=== PATIENT | male | born 1955 | race Two or more races ===

== ENCOUNTER 2020-07-20 17:44 | Outpatient (REF) | payer OTHER, SELFPAY | END 2020-07-20 17:45 | disposition home or self-care (01) | LOC: HO.LAB 17:44 | PROVIDERS: PCP Student in an Organized Health Care Education/Training Program; Visit Provider Internal Medicine | DX: Z20.828 Contact with and (suspected) exposure to other viral communicable diseases (principal) | CPT/HCPCS: 36415; 87635 ==

== ENCOUNTER 2021-01-08 09:28 | Outpatient (REF) | payer OTHER, SELFPAY ==
[2021-01-08 11:41] LABS: Free T4 (Free Thyroxine) 1.11 ng/dL (0.71-1.85); Thyroid Stimulating Hormone 1.64 uIU/mL (0.32-4.0)
== END 2021-01-08 09:29 | disposition home or self-care (01) ==
LOC: HO.LAB 09:28
PROVIDERS: PCP Student in an Organized Health Care Education/Training Program; Visit Provider Internal Medicine Endocrinology, Diabetes & Metabolism
DX: E03.9 Hypothyroidism, unspecified (principal); E05.00 Thyrotoxicosis with diffuse goiter without thyrotoxic crisis or storm; F17.200 Nicotine dependence, unspecified, uncomplicated; Z71.6 Tobacco abuse counseling; Z79.899 Other long term (current) drug therapy
CPT/HCPCS: 36415; 84439; 84443; Q3014

== ENCOUNTER 2021-12-31 11:22 | Outpatient (REF) | payer OTHER, SELFPAY ==
[2021-12-31 12:53] LABS: Free T4 (Free Thyroxine) 1.03 ng/dL (0.71-1.85); Thyroid Stimulating Hormone 5.74 uIU/mL (0.32-4.0)
== END 2021-12-31 11:23 | disposition home or self-care (01) ==
LOC: HO.LAB 11:22
PROVIDERS: PCP Student in an Organized Health Care Education/Training Program; Visit Provider Internal Medicine Endocrinology, Diabetes & Metabolism
DX: E03.9 Hypothyroidism, unspecified (principal); E05.00 Thyrotoxicosis with diffuse goiter without thyrotoxic crisis or storm
CPT/HCPCS: 36415; 84439; 84443

== ENCOUNTER 2022-01-07 09:58 | Outpatient (REF) | payer OTHER, SELFPAY ==
[2022-01-07 12:56] LABS: Free T4 (Free Thyroxine) 1.06 ng/dL (0.71-1.85); Thyroid Stimulating Hormone 7.65 uIU/mL (0.32-4.0)
== END 2022-01-07 09:59 | disposition home or self-care (01) ==
LOC: HO.LAB 09:58
PROVIDERS: PCP Student in an Organized Health Care Education/Training Program; Visit Provider Internal Medicine Endocrinology, Diabetes & Metabolism
DX: E03.9 Hypothyroidism, unspecified (principal)
CPT/HCPCS: 36415; 84439; 84443; 99212

== ENCOUNTER 2022-02-21 08:22 | Outpatient (REF) | payer OTHER, SELFPAY ==
[2022-02-21 09:47] LABS: Free T4 (Free Thyroxine) 1.57 ng/dL (0.71-1.85); Thyroid Stimulating Hormone 2.44 uIU/mL (0.32-4.0)
== END 2022-02-21 08:23 | disposition home or self-care (01) ==
LOC: HO.LAB 08:22
PROVIDERS: PCP Student in an Organized Health Care Education/Training Program; Visit Provider Internal Medicine Endocrinology, Diabetes & Metabolism
DX: E03.9 Hypothyroidism, unspecified (principal)
CPT/HCPCS: 36415; 84439; 84443

== ENCOUNTER 2022-03-10 11:01 | Outpatient (REF) | payer OTHER, SELFPAY ==
--- NOTE | ~2022-03-10 | XR_ITS ---
EXAMINATION: XR CHEST CLINICAL INFORMATION: Shortness of breath COMPARISON: Previous chest x-ray September 2017 TECHNIQUE: 2 views of the chest were obtained. FINDINGS: The cardiac silhouette is upper normal in size. There is increased soft tissue seen in the right mediastinum/azygos region. Hilar and mediastinal contours are otherwise normal. The lungs are otherwise clear. There is no pleural effusion or pneumothorax there are degenerative changes of the spine. XR/XR chest 2V IMPRESSION: Increased soft tissue in the right azygous region. Follow-up chest CT with IV contrast is recommended. Findings will be communicated by the [facility] work flow derrick man.
[2022-03-10 13:01] LABS: MANUAL DIFF FLAG NO
[2022-03-10 13:18] LABS: Basophils Absolute Auto 0.1 X10*3/uL (0.0-0.2); Basophils Percent Auto 0.6 % (0-2); Eosinophils Absolute Auto 1.2 X10*3/uL (0.0-0.4); Eosinophils Percent Auto 12.8 % (0-4); Hematocrit 39.3 % (42.0-52.0); Hemoglobin 12.7 g/dl (14.0-18.0); Imm Gran Abs Auto 0.06 X10*3/uL (0.00-0.03); Imm Gran Pct Auto 0.6 % (0.0-0.4); Lymphocytes Absolute Auto 2.4 X10*3/uL (1.2-4.9); Lymphocytes Percent Auto 25.5 % (20-40); Mean Corpuscular HGB Conc 32.3 g/dl (31.0-36.0); Mean Corpuscular Hemoglobin 27.6 pg (27.0-33.0); Mean Corpuscular Volume 85.4 fL (80.0-98.0); Mean Platelet Volume 9.3 fL (9.4-12.4); Monocytes Absolute Auto 0.9 X10*3/uL (0.1-1.2); Monocytes Percent Auto 10.1 % (2-11); Neutrophils Absolute Auto 4.7 x10*3/uL (2.0-8.3); Neutrophils Percent Auto 50.4 % (45-73); Platelet Count 429 X10*3/uL (160-400); Red Cell Distribution Width 14.4 % (11.0-16.0); White Blood Count 9.2 X10*3/uL (4.8-10.8)
[2022-03-10 13:51] LABS: Alanine Aminotransferase 25 U/L (0-40); Albumin Level 4.2 g/dL (3.5-5.0); Alkaline Phosphatase 79 U/L (39-117); Anion Gap 14 (12-20); Aspartate Amino Transferase 14 U/L (5-37); Bilirubin Total 0.3 mg/dL (0.0-1.0); Blood Urea Nitrogen 14 mg/dL (9-16); C Reactive Protein 1.47 mg/dL (< or = 0.50); Calcium 10.1 mg/dL (8.4-10.2); Carbon Dioxide 28 mmol/L (22-29); Chloride 101 mmol/L (96-108); Estimated Glomerular Filt Rate > 60; Glucose Random 108 mg/dL (60-115); Potassium 5.2 mmol/L (3.3-5.1); Sodium 138 mmol/L (135-145); Total Protein 6.8 g/dL (6.5-8.0)
[2022-03-10 13:55] LABS: Erythrocyte Sedimentation Rate 19 MM/HR (0-15)
[2022-03-16 21:06] LABS: Transglutaminase IgA <1.0 U/mL
[2022-03-19 14:26] LABS: Endomysial IgA Antibody Negative (Negative)
== END 2022-03-10 11:02 | disposition home or self-care (01) ==
LOC: HO.XRAY 11:01
PROVIDERS: PCP Student in an Organized Health Care Education/Training Program; Visit Provider Physician Assistant
DX: K52.9 Noninfective gastroenteritis and colitis, unspecified (principal); R06.02 Shortness of breath; R05.9 Cough, unspecified; R63.4 Abnormal weight loss; F17.210 Nicotine dependence, cigarettes, uncomplicated; R13.10 Dysphagia, unspecified; Z12.11 Encounter for screening for malignant neoplasm of colon; Z79.899 Other long term (current) drug therapy
CPT/HCPCS: 36415; 71046; 80053; 85025; 85652; 86140; 86231; 86364; 99202; 99212

== ENCOUNTER 2022-03-28 09:55 | Emergency (ER) | payer OTHER, SELFPAY ==
--- NOTE | ~2022-03-28 | CT_ITS ---
EXAMINATION: CT CHEST WITHOUT CONTRAST CLINICAL INFORMATION: History of mass, SOB. COMPARISON: Chest 03/11/2022 TECHNIQUE: Multidetector volumetric CT imaging of the chest was done. Axial MIP volume rendering provided. Sagittal and coronal reformatted images were obtained. This CT examination was performed using dose optimization techniques as appropriate, variously including the following: *Automated exposure control *Adjustment of mA and/or kV according to patient size (this includes techniques or standardized protocols for targeted exams where dose is matched to indication/reason for exam; i.e. extremities or head) *Use of iterative reconstruction technique DLP: 220 mGy-cm FINDINGS: ROTOR COIL TAPER: Hypoexpanded lungs. LUNGS: There is a paraseptal emphysema with bullous changes in the right lung apex. There is no pulmonary nodule, mass or groundglass density. MEDIASTINUM: The central trachea and the bronchi widely patent. The thyroid lobes are not visualized. No abnormal size. There is a right paratracheal mass measuring 3.1 x 2.6 x 3.83 cm. No additional lung mass or lymph nodes seen. There is trace coronary artery calcifications present. No pericardial effusion seen. PLEURA: There is no pleural effusion. No pleural mass or thickening. AXILLA: No lymphadenopathy. UPPER ABDOMEN: Visualized liver, spleen, pancreas and bilateral adrenal glands unremarkable. The gallbladder has been surgically removed. OSSEOUS STRUCTURES: No lytic or sclerotic process seen. There is mild ventral spondylosis mid dorsal spine. CT/CT chest wo con IMPRESSION: Soft tissue density right parahilar bronchial region is consistent with abnormal appearing lymph node or mass. There is no contributing pulmonary mass or nodule seen. Recommend outpatient CT PET exam. Trace coronary artery calcifications. Para bronchial region Fleischner guidelines were followed.
[2022-03-28 10:05] VITALS: BP 168/70; PULSE 56; RESP 19; TEMP 36.6; O2SAT 98; BMI 23.3
[2022-03-28 11:18] LABS: MANUAL DIFF FLAG NO
[2022-03-28 11:24] LABS: Basophils Absolute Auto 0.1 X10*3/uL (0.0-0.2); Basophils Percent Auto 0.8 % (0-2); Eosinophils Absolute Auto 1.6 X10*3/uL (0.0-0.4); Hematocrit 39.9 % (42.0-52.0); Hemoglobin 13.4 g/dl (14.0-18.0); Imm Gran Abs Auto 0.05 X10*3/uL (0.00-0.03); Imm Gran Pct Auto 0.5 % (0.0-0.4); Lymphocytes Absolute Auto 1.9 X10*3/uL (1.2-4.9); Lymphocytes Percent Auto 19.5 % (20-40); Mean Corpuscular HGB Conc 33.6 g/dl (31.0-36.0); Mean Corpuscular Hemoglobin 27.9 pg (27.0-33.0); Mean Platelet Volume 9.8 fL (9.4-12.4); Monocytes Percent Auto 9.7 % (2-11); Neutrophils Absolute Auto 5.2 x10*3/uL (2.0-8.3); Neutrophils Percent Auto 53.5 % (45-73); Platelet Count 362 X10*3/uL (160-400); Red Blood Count 4.81 X10*6/uL (4.60-5.80); Red Cell Distribution Width 13.6 % (11.0-16.0); White Blood Count 9.8 X10*3/uL (4.8-10.8)
[2022-03-28 11:37] LABS: Anion Gap 13 (12-20); Blood Urea Nitrogen 15 mg/dL (9-16); Carbon Dioxide 30 mmol/L (22-29); Chloride 97 mmol/L (96-108); Creatinine Clr Calc Pharmacy 76.8; Estimated Glomerular Filt Rate > 60; Glucose Random 117 mg/dL (60-115); Potassium 5.4 mmol/L (3.3-5.1); Sodium 135 mmol/L (135-145)
--- NOTE | 2022-03-28 11:49 | ED.GENADULT ---
HPI - General Adult General Chief complaint: General Medical Stated complaint: weakness , difficulty breathing Time Seen by Provider: 03/28/22 11:49 Source: patient and family (son) Mode of arrival: ambulatory Limitations: no limitations History of Present Illness HPI narrative: Patient is a 66 year old male presenting to the emergency department today with 30lb weight loss over 2 weeks and decreased appetite. Patient states that for the last 2 weeks he has been losing more weight and has felt generally weak. Patient denies any dizziness, lightheadedness, abdominal pain, nausea, vomiting, fever, chills, blurry vision, double vision, loss of vision, chest pain, difficulty breathing, shortness of breath, back pain, night sweats, pain with urination, increased urinary frequency, increased urinary urgency, blood in his urine or stool, syncope or a near syncopal episode, recent trauma or falls, bowel incontinence, bladder incontinence, bowel retention, bladder retention, or any other complaints at this time. Onset (ago): week(s) (2) Severity: mild Severity scale (1-10): 3 Relieving factors: none Exacerbating factors: none Associated symptoms: loss of appetite and weakness Treatments prior to arrival: none Related Data Home Medications Medication Instructions Recorded Confirmed buprenorphine 8 mg-naloxone 2 mg 20 mg sublingual DAILY 01/08/21 03/10/22 sublingual film divalproex 500 mg tablet,extended 500 mg PO DAILY 01/08/21 03/10/22 release 24 hr folic acid 1 mg tablet 1 mg PO DAILY 01/08/21 03/10/22 gemfibrozil 600 mg tablet 600 mg PO BID 01/08/21 03/10/22 hydrochlorothiazide 12.5 mg capsule 12.5 mg PO DAILY 01/08/21 03/10/22 hydroxyzine HCl 25 mg tablet 25 mg PO QID 01/08/21 03/10/22 olanzapine 15 mg tablet 15 mg PO BEDTIME 01/08/21 03/10/22 primidone 250 mg tablet 250 mg PO BID 01/08/21 03/10/22 propranolol 160 mg capsule,24 160 mg PO DAILY 01/08/21 03/10/22 hr,extended release simvastatin 20 mg tablet 20 mg PO BEDTIME 01/08/21 03/10/22 Previous Rx's Medication Instructions Recorded levothyroxine 50 mcg tablet 50 mcg PO DAILY #30 tabs 01/07/22 (Levoxyl) levothyroxine 200 mcg tablet 200 mcg PO DAILY 90 days #90 tabs 02/14/22 bisacodyl 5 mg tablet,delayed 10 mg PO ONCE colonoscopy prep 1 03/10/22 release (Dulcolax (bisacodyl)) day #2 tabs polyethylene glycol 3350 17 238 g PO ONCE 1 day #238 grams 03/10/22 gram/dose oral powder (Miralax) Allergies Allergy/AdvReac Type Severity Reaction Status Date / Time No Known Allergies Allergy Verified 03/10/22 11:10 [No Known Allergies*] Review of Systems Constitutional: Constitutional: Reports no additional constitutional complaints, Denies chills, Denies fever(s), Reports lethargy, Denies night sweats, Reports weakness and Reports weight loss Eyes: Eyes: Reports no additional eye complaints, Denies blurry vision, Denies change in vision, Denies diplopia, Denies eye discharge, Denies loss of vision and Denies eye pain ENT: Denies dizziness Comments: difficulty swallowing Cardiovascular: Cardiovascular: Reports no additional cardiovascular complaints, Denies chest pain, Denies lightheadedness, Denies Loss of Consciousness and Denies dyspnea Respiratory: Respiratory: Reports no additional respiratory complaints and Denies dyspnea Gastrointestinal: Gastrointestinal: Reports no additional gastrointestinal complaints, Denies abdominal pain, Denies melena, Denies hematochezia, Denies change in bowel habits and Denies change in stool character Genitourinary: Genitourinary: Reports no additional male genitourinary complaints, Denies hematuria, Denies oliguria, Denies difficulty urinating, Denies dysuria, Denies urinary frequency, Denies urinary hesitancy, Denies urinary incontinence and Denies urinary urgency Musculoskeletal: Musculoskeletal: Reports no additional musculoskeletal complaints, Denies numbness and Denies tingling Comments: right shoulder pain Neurologic: Denies dizziness, Denies loss of vision, Denies numbness, Denies tingling and Reports weakness Psychiatric: Psychiatric: Reports no additional psychiatric complaints Endocrine: Endocrine: Reports no additional endocrine complaints Hematologic/Lymphatic: Hematologic/Lymphatic: Reports no additional hematologic/lymphatic complaints Allergic/Immunologic: Allergic/Immunologic: Reports no additional allergic/immunologic complaints PMFSH Past Medical History Attestation statement: The following information was validated with the patient. Source: old records reviewed Medical History Graves' orbitopathy Hypothyroidism Smoker Surgical History Hx of cataract surgery Family History Family History Father Diabetes mellitus Mother No problems noted. Social History Social History Alcohol intake: current Alcohol intake frequency: does not drink Patient Tobacco Use Status: Current everyday Tobacco user Cigarettes Per Day: 10 Advance Directives: No Advance Directives Information Provided: No Physical Exam ED Vital Signs: Vital Signs - 24 hr 03/28/22 10:05 03/28/22 12:41 03/28/22 16:02 Temperature 98 F 98.2 F Pulse Rate 56 58 55 Respiratory Rate 19 16 17 Blood Pressure 168/70 H 177/72 H 169/60 H Pulse Oximetry 98 98 96 Oxygen Delivery Method Room Air Room Air Room Air BMI result Body Mass Index 23.3 Const General: cooperative, no acute distress, alert and awake Nutritional Appearance: cachectic Orientation/consciousness: patient oriented x3 Limitations: no limitations HENMT Head: Yes normal to inspection and Yes atraumatic Ears: hearing grossly normal bilaterally and external ears normal General nose exam: Normal external nose present, no nasal discharge noted and no epistaxis Face and sinus: Yes normal facial exam, No abrasion and No laceration Mouth: Normal oral and palatal mucosa present, no drooling and no muffled voice Eyes General: appearance normal, both eyes and all related structures Periorbital: periorbital findings normal Eyelids: Yes eyelids normal Conjunctivae: conjunctivae normal Pupils: Equal, round and reactive pupils present EOM: EOMs intact bilaterally Neck Neck: Yes normal visual inspection, Yes full ROM and Yes no lymphadenopathy Chest Chest palpation & inspection: normal inspection of the chest Resp Effort & Inspection: normal respiratory effort and able to speak in complete sentences Auscultation: clear to auscultation bilaterally Cardio Rate: regular rate Rhythm: regular rhythm GI Inspection: Yes normal to inspection Neuro General: patient oriented x3 and moves all extremities Cranial nerves: Yes Equal, round and reactive pupils present Cognition (Neuro): normal cognition Motor exam (neuro): 5/5 motor strength present throughout Sensory Exam: Normal double simultaneous stimulation for sensation Coordination: [id number] test normal Extrem General: Yes normal to inspection, Yes full ROM and Yes capillary refill normal Psych Appearance: grossly normal Mental Status: mental status grossly normal Affect: normal affect Attitude: cooperative Thought process: Normal thought process present Thought content: Normal thought content present Insight: Good insight present (Psych) Medical Decision Making MDM Narrative Medical decision making narrative: Patient is a 66 year old male presenting to the emergency department today with weakness. Patient's physical exam showed cachectia but was otherwise unremarkable. Patient's blood work showed an elevated potassium which seams to be the patient's basline. Patient's chest CT showed a paratracheal mass on the right side, the radiologist remarks it is likely a lymphnode. I explained my physical exam findings as well as all test results to the patient and the patient's son. I answered all questions asked by the patient and the patient's. Patient received IV Morphine, Zofran, and Ativan which he stated helped his shoulder pain significantly. I stressed the importance of the patient taking his medication as prescribed. I stressed the importance of the patient following up with his primary care provider and with an oncologist. I stressed the importance of the patient returning to the emergency department immediately if his symptoms were to worsen or if he were to develop any dizziness, shortness of breath, difficulty breathing, chest pain, blurry vision, loss of vision, nausea, vomiting, abdominal pain, fever, chills, back pain, or any other complaints. Patient and the patient's son verbalized agreement and understanding with this treatment plan and discharge. Differential Diagnosis Differential Diagnosis: lymphoma Medical Records Medical records reviewed: Yes I reviewed the patient's medical records. Lab Data Lab results reviewed: Yes I reviewed the patient's lab results. Result diagrams: 03/28/22 11:14 03/28/22 11:14 Labs: Lab Results 03/28/22 03/28/22 Range/Units 11:14 11:14 WBC 9.8 (4.8-10.8) X10*3/uL RBC 4.81 (4.60-5.80) X10*6/uL Hgb 13.4 L (14.0-18.0) g/dl Hct 39.9 L (42.0-52.0) % MCV 83.0 (80.0-98.0) fL MCH 27.9 (27.0-33.0) pg MCHC 33.6 (31.0-36.0) g/dl RDW 13.6 (11.0-16.0) % Plt Count 362 (160-400) X10*3/uL MPV 9.8 (9.4-12.4) fL Immature Gran % (Auto) 0.5 H (0.0-0.4) % Neut % (Auto) 53.5 (45-73) % Lymph % (Auto) 19.5 L (20-40) % Wagoner % (Auto) 9.7 (2-11) % Eos % (Auto) 16.0 H (0-4) % Baso % (Auto) 0.8 (0-2) % Lymph # (Auto) 1.9 (1.2-4.9) X10*3/uL Wagoner # (Auto) 1.0 (0.1-1.2) X10*3/uL Eos # (Auto) 1.6 H (0.0-0.4) X10*3/uL Baso # (Auto) 0.1 (0.0-0.2) X10*3/uL Abs Immat Gran (auto) 0.05 H (0.00-0.03) X10*3/uL Absolute Neuts (auto) 5.2 (2.0-8.3) x10*3/uL Absolute Nucleated RBC 0.000 (0.0-0.012) X10*3/uL Nucleated RBC % (auto) 0.0 (0.0-0.2) /100WBC Sodium 135 (135-145) mmol/L Potassium 5.4 H (3.3-5.1) mmol/L Chloride 97 (96-108) mmol/L Carbon Dioxide 30 H (22-29) mmol/L Anion Gap 13 (12-20) BUN 15 (9-16) mg/dL Creatinine 0.75 (0.5-1.4) mg/dL Estim Creat Clear Calc 76.8 Estimated GFR > 60 Random Glucose 117 H (60-115) mg/dL Calcium 10.0 (8.4-10.2) mg/dL Imaging Data CT scan - chest: Attestation: I personally reviewed and interpreted this imaging study as follows: My impression: Mass on right side of trachea. Radiologist's impression: EXAMINATION: CT CHEST WITHOUT CONTRAST CLINICAL INFORMATION: History of mass, SOB.? COMPARISON: Chest 03/11/2022 TECHNIQUE: Multidetector volumetric CT imaging of the chest was done. Axial MIP volume rendering provided. Sagittal and coronal reformatted images were obtained.? This CT examination was performed using dose optimization techniques as appropriate, variously including the following: *Automated exposure control *Adjustment of mA and/or kV according to patient size (this includes techniques or standardized protocols for targeted exams where dose is matched to indication/reason for exam; i.e. extremities or head) *Use of iterative reconstruction technique DLP: 220 mGy-cm FINDINGS: BAIL BONDING AGENT: Hypoexpanded lungs. LUNGS: There is a paraseptal emphysema with bullous changes in the right lung apex. There is no pulmonary nodule, mass or groundglass density.? MEDIASTINUM: The central trachea and the bronchi widely patent. The thyroid lobes are not visualized. No abnormal size. There is a right paratracheal mass measuring 3.1 x 2.6 x 3.83 cm. No additional lung mass or lymph nodes seen. There is trace coronary artery calcifications present. No pericardial effusion seen.? PLEURA: There is no pleural effusion. No pleural mass or thickening.? AXILLA: No lymphadenopathy.? UPPER ABDOMEN: Visualized liver, spleen, pancreas and bilateral adrenal glands unremarkable. The gallbladder has been surgically removed.? OSSEOUS STRUCTURES: No lytic or sclerotic process seen. There is mild ventral spondylosis mid dorsal spine.? CT/CT chest wo con IMPRESSION: Soft tissue density right parahilar bronchial region is consistent with abnormal appearing lymph node or mass. ? There is no contributing pulmonary mass or nodule seen. ? Recommend outpatient CT PET exam. ? Trace coronary artery calcifications. ? Para bronchial region Fleischner guidelines were followed. Dictated By: Chuck Jiang MD Signed By: Electronically signed by Chuck Jiang MD 03/28/22 0646 Discharge Plan Discharge Clinical Impression: Mass in chest Patient Disposition: Home, Self-Care Instructions: Weakness (ED) Additional Instructions: Follow up with your primary care provider and an oncologist. Return to the emergency department immediately if your symptoms worsen or if you develop any dizziness, shortness of breath, difficulty breathing, chest pain, blurry vision, loss of vision, nausea, vomiting, abdominal pain, fever, chills, back pain, or any other complaints. Prescriptions: No Action levothyroxine [Levoxyl] 50 mcg tablet 50 mcg PO DAILY Qty: 30 5RF Rx Instructions: Please take 200 mcg and 50 mcg q.d. to make total of 250 mcg levothyroxine 200 mcg tablet 200 mcg PO DAILY 90 Days Qty: 90 1RF Rx Instructions: PLEASE TAKE 200MCG WITH 50MCG FOR TOTAL DOSE 250MCG. olanzapine 15 mg tablet 15 mg PO BEDTIME folic acid 1 mg tablet 1 mg PO DAILY hydrochlorothiazide 12.5 mg capsule 12.5 mg PO DAILY divalproex 500 mg tablet extended release 24 hr 500 mg PO DAILY simvastatin 20 mg tablet 20 mg PO BEDTIME gemfibrozil 600 mg tablet 600 mg PO BID primidone 250 mg tablet 250 mg PO BID propranolol 160 mg capsule,extended release 24 hr 160 mg PO DAILY hydroxyzine HCl 25 mg tablet 25 mg PO QID buprenorphine-naloxone 8-2 mg film 20 mg sublingual DAILY bisacodyl [Dulcolax (bisacodyl)] 5 mg tablet,delayed release (DR/EC) 10 mg PO ONCE 1 Days Qty: 2 0RF Rx Instructions: Take 2 tablets by mouth at 12:00pm the day before your procedure. polyethylene glycol 3350 [Miralax] 17 gram/dose powder 238 g PO ONCE 1 Days Qty: 238 0RF Rx Instructions: Take as directed by mouth the day before your procedure. Referrals: Bre Lewis MD [Physician] - (Call to set up an appointment with an oncologist. ) Anastasiya Gimenez MD [Primary Care Provider] - Print Language: [place]
[2022-03-28 12:41] VITALS: BP 177/72; PULSE 58; RESP 16; TEMP 36.8; O2SAT 98
[2022-03-28] MEDS: ondansetron HCL 4 MG/2 ML VIAL IVPUSH (13:41)
[2022-03-28] MEDS: Morphine Sulfate 4 MG/ML CARTRIDGE IVPUSH (13:41)
[2022-03-28] MEDS: LORazepam 2 MG/ML VIAL IVPUSH (15:09)
[2022-03-28 16:02] VITALS: BP 169/60; PULSE 55; RESP 17; O2SAT 96
[2022-03-28 16:59] LABS: Lactate Dehydrogenase 180 U/L (118-273)
== END 2022-03-28 17:12 | disposition home or self-care (01) ==
PROVIDERS: Internal Medicine; Emergency Provider Emergency Medicine; PCP Student in an Organized Health Care Education/Training Program
DX: R93.89 Abnormal findings on diagnostic imaging of other specified body structures (principal); R63.4 Abnormal weight loss; Z68.23 Body mass index [BMI] 23.0-23.9, adult; F17.210 Nicotine dependence, cigarettes, uncomplicated
CPT/HCPCS: 36415; 71250; 80048; 82378; 83615; 85025; 96374; 96375; 99283; 99284; J2060; J2270; J2405

== ENCOUNTER → 2022-04-04 15:04 | Outpatient (BNV) | payer OTHER, SELFPAY | PROVIDERS: PCP Student in an Organized Health Care Education/Training Program; Visit Provider Internal Medicine | DX: R91.8 Other nonspecific abnormal finding of lung field (principal); R13.10 Dysphagia, unspecified | CPT/HCPCS: 99204; 99212; 99213; 99214; 99215; G2211 ==

== ENCOUNTER → 2022-04-05 14:39 | Outpatient (BNVA) | payer OTHER, SELFPAY | PROVIDERS: PCP Student in an Organized Health Care Education/Training Program; Visit Provider Hospitalist | DX: J98.59 Other diseases of mediastinum, not elsewhere classified (principal); R05.9 Cough, unspecified; R13.10 Dysphagia, unspecified; R59.1 Generalized enlarged lymph nodes; F17.210 Nicotine dependence, cigarettes, uncomplicated | CPT/HCPCS: 99202 ==

== ENCOUNTER 2022-04-08 09:38 | Outpatient (REF) | payer OTHER, SELFPAY ==
--- NOTE | ~2022-04-08 | MR_ITS ---
EXAMINATION: MR BRAIN WITHOUT AND WITH CONTRAST CLINICAL INFORMATION: 66-year-old with headaches. Right parahilar mass noted on recent CT chest. COMPARISON: None TECHNIQUE: Multiplanar, multisequence MRI of the brain was obtained before and after the intravenous administration of 6 mL Gadavist. FINDINGS: Brain Volume: Mild generalized diffuse brain parenchymal volume loss consistent with the patient's age within the limitations of a qualitative assessment. Structural: No malformations. Brain and Meninges: DWI sequence demonstrates no restricted diffusion to suggest acute or subacute cerebral ischemia. Multiple small T2 hyperintense nonenhancing white matter lesions in the subcortical white matter of both cerebral hemispheres with faint, more confluent T2 hyperintensity in the deep parietal white matter bilaterally, which are nonspecific findings but likely reflect foci of chronic ischemic microangiopathy. Gradient refocused imaging demonstrates no evidence for hemorrhage, hemosiderin staining or abnormal mineral deposition. Note is made of a 4 mm enhancing nodule within the cerebellar vermis slightly to the right of midline along its superior aspect with focal FLAIR signal hyperintensity consistent with a focal metastasis. A 2nd smaller lesion measuring 3 mm may be present just inferior to this on the right side of the vermis seen on image 10 of series 10. There is a punctate enhancing focus in the right cerebellar hemisphere on image 5 of series 10 and image 9 of series 11 suggesting a tiny metastatic deposit. No supratentorial lesions are seen. The remainder of the brain is normal in signal intensity. No extra-axial fluid collections, significant space-occupying process or mass effect. Ventricles and Subarachnoid Spaces: The ventricular system and subarachnoid spaces are within normal limits without hydrocephalus. Orbital Structures: Bilateral lens extractions are noted. Otherwise, the visualized orbital structures are grossly unremarkable within the limitations of the study. Vascular: Signal voids are noted in the visualized major intracranial vessels. Osseous Structures, Sinuses/Mastoids, Extracranial Soft Tissues: The left maxillary sinus is filled with low T1/high T2 signal intensity with peripheral enhancement and restricted diffusion suggesting acute left maxillary sinusitis with probable left [facility] occlusion. There is minor mucosal thickening in the ethmoid complex. Osseous marrow signal intensity appears grossly within normal limits. The visualized extracranial soft tissue structures are unremarkable. MR/MR head/brain wo/w con IMPRESSION: 1. 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 2. Chronic ischemic microangiopathy in the white matter of both cerebral hemispheres. 3. Acute left maxillary sinusitis. The [facility] staff will call to confirm receipt of this report with acknowledgement of the findings and any recommendations.
== END 2022-04-08 09:39 | disposition home or self-care (01) ==
LOC: HO.MRI 09:38
PROVIDERS: Visit Provider Internal Medicine
DX: R91.8 Other nonspecific abnormal finding of lung field (principal)
CPT/HCPCS: 70553; A9585

== ENCOUNTER 2022-04-11 07:43 | Outpatient (REF) | payer OTHER, SELFPAY ==
--- NOTE | ~2022-04-11 | CT_ITS ---
EXAMINATION: CT CHEST WITH CONTRAST CLINICAL INFORMATION: Mediastinal mass. Dysphagia. COMPARISON: Previous chest x-ray February [address] 2021 TECHNIQUE: Multidetector volumetric CT imaging of the chest was obtained after the administration of 65 mL of Omnipaque 350 intravenous contrast without immediate adverse reactions. Axial MIP volume rendering provided. Sagittal and coronal reformatted images were obtained. This CT examination was performed using dose optimization techniques as appropriate, variously including the following: *Automated exposure control *Adjustment of mA and/or kV according to patient size (this includes techniques or standardized protocols for targeted exams where dose is matched to indication/reason for exam; i.e. extremities or head) *Use of iterative reconstruction technique DLP: 123 mGy-cm FINDINGS: LUNGS: There is evidence of paraseptal emphysema. No lung nodule or mass is appreciated. There is question of endobronchial lesion in the right mainstem bronchus abutting the right paratracheal enlarged lymph node. MEDIASTINUM: There are enlarged mediastinal lymph nodes. Largest lymph node is a right paratracheal lymph node measuring 2.7 cm in short axis and subcarinal lymph node measuring 1.4 cm in short axis. This causes some mass effect on the right mainstem bronchus. There is question of filling defect in the adjacent right mainstem bronchus for example axial image 19 series 3 and coronal reconstructed image 43. The heart does not appear enlarged. There is coronary artery calcification. There is no pericardial effusion. The thoracic aorta is normal in caliber. There is a replaced right subclavian artery. There is wall thickening of the thoracic esophagus. PLEURA: There is no pleural effusion. No pleural mass or thickening. AXILLA: No lymphadenopathy. UPPER ABDOMEN: There is a 1 cm right adrenal nodule. There is mild diverticulosis of the colon. OSSEOUS STRUCTURES: Degenerative changes of the spine. CT/CT chest w con IMPRESSION: Enlarged right paratracheal and subcarinal mediastinal lymph nodes. Question nodule or mass in the right mainstem bronchus adjacent to the enlarged right paratracheal lymph node. 1 cm right adrenal nodule. Diffuse wall thickening of the esophagus. Paraseptal emphysema. No other pulmonary finding/nodule or mass. Coronary artery calcification. Replaced right subclavian artery. PET/CT scan or thoracic evaluation for bronchoscopy/mediastinoscopy should be considered. Fleischner guidelines were followed.
[2022-04-11] MEDS: iohexoL 350 MG/ML 100 ML INFUS..BTL IV (08:36)
== END 2022-04-11 07:44 | disposition home or self-care (01) ==
LOC: HO.CT 07:43
PROVIDERS: Visit Provider Internal Medicine
DX: J98.59 Other diseases of mediastinum, not elsewhere classified (principal)
CPT/HCPCS: 71260; Q9967

== ENCOUNTER 2022-04-14 07:15 | Day surgery (SDC) | payer OTHER, SELFPAY ==
--- NOTE | 2022-04-13 10:07 | HO.ANESPROP2 ---
Documented by User: Pretty Martinez NP 04/13/22 10:10 HPI - Anesthesia Eval Consult details Narrative: 66yo M for Endoscopic Bronchial Ultrasound [facility] Active Problems Active Problems: All Active Problems (Updated 04/05/22 @ 23:33 by Gaetano Valverde MD) Lymphadenopathy (Acute) Mediastinal mass (Acute) Smoker (Acute) Cough (Acute) Weight loss (Acute) SOB (shortness of breath) (Acute) Encounter for screening colonoscopy (Acute) Chronic diarrhea (Acute) Dysphagia (Acute) Graves' orbitopathy (Acute) Hypothyroidism (Acute) Past Medical History Medical History Graves' orbitopathy Hypothyroidism Smoker Family History Family History (Updated 04/04/22 @ 15:20 by Sydnee Moya) Father Diabetes mellitus Mother Alzheimer disease Surgical History Surgical History Hx of cataract surgery Social History Social History (Updated 04/04/22 @ 15:23 by Sydnee Moya) Household Members: None Housing: Apartment Are you a primary resident care aide to a significant other at home: No Do you presently have visiting nurse or other home services: No Alcohol intake: current Alcohol intake frequency: does not drink Patient Tobacco Use Status: Current everyday Tobacco user Tobacco use type: Cigarette Cigarettes Per Day: 3 Use of substances other than those prescribed or required for medical reasons: Yes Substance Use Type: Club/Welding Manager Drugs and Marijuana Substance Use Frequency: Daily Are you DNR?: No Advance Directives: No Advance Directives Information Provided: Yes service: No Current occupational status: disabled Meds Allergies Allergy/AdvReac Type Severity Reaction Status Date / Time No Known Allergies Allergy Verified 04/05/22 14:46 [No Known Allergies*] Home Medications Medication Instructions Recorded Confirmed Last Taken Type buprenorphine 8 mg-naloxone 2 mg 20 mg sublingual DAILY 01/08/21 04/04/22 Unknown History sublingual film divalproex 500 mg tablet,extended 500 mg PO DAILY 01/08/21 04/04/22 Unknown History release 24 hr gemfibrozil 600 mg tablet 600 mg PO BID 01/08/21 04/04/22 Unknown History hydrochlorothiazide 12.5 mg capsule 12.5 mg PO DAILY 01/08/21 04/04/22 Unknown History hydroxyzine HCl 25 mg tablet 25 mg PO QID 01/08/21 04/04/22 Unknown History primidone 250 mg tablet 250 mg PO BID 01/08/21 04/04/22 04/14/22 05:45 History propranolol 160 mg capsule,24 160 mg PO DAILY 01/08/21 04/04/22 Unknown History hr,extended release simvastatin 20 mg tablet 20 mg PO BEDTIME 01/08/21 04/04/22 Unknown History olanzapine 15 mg tablet 1 tab PO BEDTIME 04/04/22 04/04/22 Unknown History Exam Exam Date and Time: April 13, 2022 1007 Pertinent Lab Results Pertinent Lab Results: Laboratory Tests 03/28/22 03/28/22 11:14 11:14 WBC 9.8 Hgb 13.4 L Hct 39.9 L Plt Count 362 Sodium 135 Potassium 5.4 H Chloride 97 Carbon Dioxide 30 H BUN 15 Creatinine 0.75 Narrative Narrative: CT chest w con 03/2022 IMPRESSION: Enlarged right paratracheal and subcarinal mediastinal lymph nodes. Question nodule or mass in the right mainstem bronchus adjacent to the enlarged right paratracheal lymph node. 1 cm right adrenal nodule. Diffuse wall thickening of the esophagus. Paraseptal emphysema. No other pulmonary finding/nodule or mass. Coronary artery calcification. Replaced right subclavian artery. ? PET/CT scan or thoracic evaluation for bronchoscopy/mediastinoscopy should be considered. Assessment and Plan Assessment Anesthesia Assessment: Chart Reviewed Documented by User: Hari Saunders MD 04/14/22 09:55 [facility] Past Medical History Medical History Graves' orbitopathy Hypothyroidism Smoker Family History Family History (Updated 04/04/22 @ 15:20 by Sydnee Moya) Father Diabetes mellitus Mother Alzheimer disease Family history of problems with anesthesia: No Surgical History Surgical History Hx of cataract surgery History of Problems with Anesthesia: No Social History Social History (Updated 04/04/22 @ 15:23 by Sydnee Moya) Household Members: None Housing: Apartment Are you a primary resident care aide to a significant other at home: No Do you presently have visiting nurse or other home services: No Alcohol intake: current Alcohol intake frequency: does not drink Patient Tobacco Use Status: Current everyday Tobacco user Tobacco use type: Cigarette Cigarettes Per Day: 3 Use of substances other than those prescribed or required for medical reasons: Yes Substance Use Type: Club/Welding Manager Drugs and Marijuana Substance Use Frequency: Daily Are you DNR?: No Advance Directives: No Advance Directives Information Provided: Yes service: No Current occupational status: disabled Meds Allergies Allergy/AdvReac Type Severity Reaction Status Date / Time No Known Allergies Allergy Verified 04/05/22 14:46 [No Known Allergies*] Home Medications Medication Instructions Recorded Confirmed Last Taken Type buprenorphine 8 mg-naloxone 2 mg 20 mg sublingual DAILY 01/08/21 04/04/22 Unknown History sublingual film divalproex 500 mg tablet,extended 500 mg PO DAILY 01/08/21 04/04/22 Unknown History release 24 hr gemfibrozil 600 mg tablet 600 mg PO BID 01/08/21 04/04/22 Unknown History hydrochlorothiazide 12.5 mg capsule 12.5 mg PO DAILY 01/08/21 04/04/22 Unknown History hydroxyzine HCl 25 mg tablet 25 mg PO QID 01/08/21 04/04/22 Unknown History primidone 250 mg tablet 250 mg PO BID 01/08/21 04/04/22 04/14/22 05:45 History propranolol 160 mg capsule,24 160 mg PO DAILY 01/08/21 04/04/22 Unknown History hr,extended release simvastatin 20 mg tablet 20 mg PO BEDTIME 01/08/21 04/04/22 Unknown History olanzapine 15 mg tablet 1 tab PO BEDTIME 04/04/22 04/04/22 Unknown History Exam Airway Mallampati Class: II TM Dist: >3cm Neck ROM: Full Denture: Upper and Lower Heart: rrr Lungs: clear Assessment and Plan Final Anesthetic Review Family History of Problems with Anesthesia: No History of Problems with Anesthesia: No NPO: Yes ASA Class: III Final Preanesthetic Review: No Changes in Pt Med Stat, Meds/Allgs Chart Reviewed, Consent Obtained/Reviewed and Anes Risks/Benef Reviewed Anesthetic Plan Anesthetic Plan: GA Disposition: Standard PACU
[2022-04-14] VITALS (8 sets, daily range): BP systolic 140–173; BP diastolic 49–75; PULSE 57–71; RESP 16–20; TEMP 35.9–36.4; O2SAT 96–100; BMI 24.1; BMI 23.8
[2022-04-14] MEDS: Lactated Ringers 1,000 ML 100 ML IVCONT (08:00)
--- NOTE | 2022-04-14 08:12 | MHC.SHP ---
Pre-Procedural Eval Section A Date of Service: 04/14/22 The patient is an INPATIENT: No Changes since office visit: No Cold of Flu in the past 2 weeks, No New Medical Problems, No Changes in Medication and No Patient answered all questions Section B Chief Complaint: Generalized enlarged lymph nodes Allergies: Allergies Allergy/AdvReac Type Severity Reaction Status Date / Time No Known Allergies Allergy Verified 04/05/22 14:46 [No Known Allergies*] Plan I have reviewed the history and physical and performed a pertinent physical examination on my patient. No changes have occurred unless specified.
[2022-04-14] MEDS: Acetaminophen 325 MG TABLET 650 MG PO (13:55)
--- NOTE | 2022-04-15 23:45 | OP_ITS ---
SURGEON: Gaetano Valverde MD PREOPERATIVE DIAGNOSIS: Lung mass. POSTOPERATIVE DIAGNOSIS: PROCEDURE PERFORMED: ESTIMATED BLOOD LOSS: COMPLICATIONS: ANESTHESIA: General anesthesia. ASSISTANTS: SPECIMENS: POSTOPERATIVE DIAGNOSES: Lung mass, lymphadenopathy, and lung cancer. DESCRIPTION OF PROCEDURE: After the patient was adequately sedated and intubated, the flexible digital bronchoscope with endobronchial ultrasound bronchoscopy (EBUS) was introduced via the ET tube to the level of the trachea. Initially using ultrasound, the lymph node stations were evaluated. Appeared to have a significantly large 4R lymph node, that was mass-like in addition to a subcarinal lymph node measuring 2 cm to 3 cm. No significant lymph nodes noted on station 4 L. Using the ultrasound guidance, transtracheal fine-needle aspirations were collected from station 4R and given to the onsite baccarat dealer. They did see abnormal cells noted. After multiple passes there, then we navigated to station 7, where we did two additional passes and the specimens were given to the onsite baccarat dealer. The EBUS was then removed and we replaced with the regular bronchoscopy. The regular bronchoscope was inserted over the ET tube to the level of the trachea. The bronchoscope was navigated to the entire tracheobronchial tree, that was examined to the subsegmental level. The patient did have what appeared to be a vascular looking mass just proximal to the opening of the right upper lobe. However, was not involving the right upper lobe. Appeared to be friable and appeared to be spreading via the mucosa. This was concerning for malignancy. Using forceps, endobronchial biopsies were collected of the right mainstem bronchus mass-like density. The specimen was placed in formalin. Bronchial washings were also collected. The patient tolerated the biopsies well. He did have some bleeding therefore 1 ampule of epinephrine was used with good hemostasis. No evidence of any active bleeding at the end the procedure. The bronchoscope was then removed. The total endoscopic time was approximately 40 minutes. The patient tolerated the procedure well. INTERPRETATION: 1. Successful EBUS-TBNA of station 4R and also 7. 2. Endobronchial biopsies of the right mainstem bronchus for pathology. 3. Bronchial washings. ENVIRONMENTAL ENGINEERING AIDE: None. MD KVNG Li/RIKA / [id number]
--- NOTE | 2022-04-16 23:31 | P.BOP_ITS ---
Brief Operative Note Date of Service: 05/12/22 Pre-op diagnosis: lung mass Post-op diagnosis: other (lung cancer) Procedure: EBUS with TBNA station 7 and 4R, bronchoscopy with biopsys and washings Surgeon: Gaetano Valverde MD Anesthesia: GETA Was an Customer Relations Specialist used for this Procedure?: No Estimated blood loss (mL): 3 Pathology: other (REJI bronchus biopsies) Condition: stable Disposition: same day
== END 2022-04-14 15:15 | disposition home or self-care (01) ==
PROVIDERS: PCP Student in an Organized Health Care Education/Training Program; Visit Provider Hospitalist
PROC: (CPT 31652; principal; 2022-04-14 11:30)
DX: C34.01 Malignant neoplasm of right main bronchus (principal); C77.9 Secondary and unspecified malignant neoplasm of lymph node, unspecified; R59.1 Generalized enlarged lymph nodes; F17.210 Nicotine dependence, cigarettes, uncomplicated; E03.9 Hypothyroidism, unspecified; E05.00 Thyrotoxicosis with diffuse goiter without thyrotoxic crisis or storm; F12.90 Cannabis use, unspecified, uncomplicated
CPT/HCPCS: 31652; 31625; 81479; 87071; 87205; 88112; 88172; 88173; 88177; 88305; 88341; 88342; 88360; 88374; 88377; J0171; J0330; J1100; J2250; J2405; J3010

== ENCOUNTER 2022-04-22 09:33 | Outpatient (REF) | payer OTHER, SELFPAY ==
--- NOTE | ~2022-04-22 | FL_ITS ---
EXAMINATION: FL BARIUM SWALLOW CLINICAL INFORMATION: Dysphagia COMPARISON: Previous chest CT most recent 04/11/2022 TECHNIQUE: Barium swallow examination is performed using fluoroscopic evaluation in addition to multiple fluoroscopic spot views. The patient is imaged both upright and prone and using both thick and thin sulfate along with effervescent granules. Barium tablet was also administered Fluoroscopy time: 1.5 minutes DAP: 7 Gycm2 Images: 48 FINDINGS: There is transient minimal laryngeal penetration with liquid barium. No beba aspiration is seen. There is abnormal esophageal motility with tertiary contractions. There is extrinsic compression on the proximal thoracic esophagus likely from replaced right subclavian artery when compared with chest CTA. There is stasis of the barium tablet in the distal thoracic esophagus. No hernia or reflux is seen. FL/FL barium swallow IMPRESSION: Abnormal esophageal motility with tertiary contractions. Extrinsic compression on the proximal thoracic esophagus from replaced right subclavian artery. Minimal laryngeal penetration. No beba aspiration.
== END 2022-04-22 09:34 | disposition home or self-care (01) ==
LOC: HO.XRAY 09:33
PROVIDERS: Visit Provider Physician Assistant
DX: R13.10 Dysphagia, unspecified (principal); R05.9 Cough, unspecified
CPT/HCPCS: 74220

== ENCOUNTER → 2022-04-28 09:45 | Outpatient (BNVA) | payer OTHER, SELFPAY | PROVIDERS: PCP Student in an Organized Health Care Education/Training Program; Visit Provider Physician Assistant | DX: J98.59 Other diseases of mediastinum, not elsewhere classified (principal); R06.02 Shortness of breath; R59.1 Generalized enlarged lymph nodes; C34.01 Malignant neoplasm of right main bronchus; R63.4 Abnormal weight loss; Z68.23 Body mass index [BMI] 23.0-23.9, adult; R68.81 Early satiety | CPT/HCPCS: 99212 ==

== ENCOUNTER 2022-05-03 09:43 | Outpatient (REF) | payer OTHER, SELFPAY ==
--- NOTE | ~2022-05-03 | PE_ITS ---
EXAMINATION: NM PET/CT FLUORINE-18 FDG CLINICAL INDICATION: Initial treatment management. Right lung adenocarcinoma. PROCEDURE: 58 minutes following the intravenous administration of 15.6 mCi of fluorine 18 FDG, images from the base of the skull to the mid thighs were obtained using a combined PET/CT scanner with CT scan based attenuation correction. No intravenous contrast was administered. Transverse, coronal, sagittal, and volume reconstruction projections were obtained. The patient's blood glucose as determined by a finger stick, was 114 mg/dl immediately prior to injection. The radiotracer was injected through left antecubital superficial vein without complications. Total CT exam dose-length product 440.75 mGy-cm * These CT images were obtained using dose optimization techniques as appropriate, variously including the following: Automated exposure control * Adjustment of mA and/or kV according to patient size (this includes techniques or standardized protocols for targeted exams where dose is matched to indication/reason for exam; i.e. extremities or head) * Use of iterative reconstruction technique COMPARISON: CT of the chest done on 04/11/2022. MRI of the brain done on 04/08/2022. FINDINGS: NECK AND VISUALIZED HEAD: Previous MRI detected presumed metastatic disease to the right cerebellum and cerebellar vermis is not reproduced on the current study. Diffuse opacity involving the left maxillary sinus, consistent with sinusitis is reidentified, similar to prior MRI study dated 04/08/2022. [id number] FDG avidity is noted at midline in the region of the hard/soft palate with maximum SUV value of 5.1 (21/223), without any concordant CT detectable focal mass is may represent physiologic changes. However, direct visualization is recommended for further full detail evaluation. Note is also made of mild asymmetric increased radiotracer uptake in the region of the cricoid/arytenoid cartilage (left greater than right; 45/223) with maximum SUV value of 3.7, likely physiologic. THORAX: Abnormal. Intense abnormal metabolically active right paratracheal soft tissue mass is noted measures approximately 3.8 x 2.6 cm at its maximum anteroposterior by transverse dimension with maximum SUV value of 11.4 (66/223). Intense abnormal metabolically active subcarinal mass is also noted, measures approximately 3.0 x 2.3 cm with maximum SUV value of 9.5 (75/223). The right paratracheal mass likely represent combination of the primary central bronchial malignancy as well as adjacent abnormal metastatic lymph node. The subcarinal mass most likely represent metastatic lymphadenopathy. There are no other metabolically active disease identified. There is no evidence of any pleural or definite additional lung parenchymal disease visualized. Incidental note is made of aberrant origin of the right subclavian artery arising from the posterior part of the arch of the aorta and traversing posterior to the esophagus across the midline to the right. Atherosclerotic disease including coronary artery calcifications are noted. ABDOMEN AND PELVIS: Abnormal. There is a 1.5 cm right adrenal nodule associated with increased FDG avidity in maximum SUV value of 5.3 (109/223), highly suggestive of metastatic disease. Intense FDG avid approximately 2 cm maximum dimension right sided mesorectal solid mass identified inseparable from the adjacent part of the serosal surface of the rectum with maximum SUV value of 9.5 (200/223). Differential diagnostic consideration would include metastatic lymphadenopathy (from unknown primary) versus exophytic primary neoplasm arising from the adjacent part of the rectum and anal canal. The prostate measures 3.4 x 4.8 cm its maximum transverse by anteroposterior dimension. MUSCULOSKELETAL: No suspicious focal lesion or FDG avid lesion is identified. VASCULAR: Diffuse atherosclerotic disease of the aorta and is branches including coronary artery calcifications are present. PET/PET CT fusion skull to thigh IMPRESSION: 1. Abnormal study. Intense FDG avid right paratracheal (maximum SUV value of 11.4) and subcarinal (maximum SUV value of 9.5) soft tissue masses are present within the chest. The right paratracheal soft tissue mass likely represent combination of right central primary bronchial/lung malignancy as well as inseparable adjacent abnormal metastatic lymph node. The subcarinal mass most likely represent metastatic lymphadenopathy. There are no other metabolically active disease identified within the chest. 2. Previous MRI detected presumed metastatic disease to the cerebellum is not reproduced in the current study. 3. Mild to moderate FDG avidity with maximum SUV value of 5.1 is noted at midline in the region of the hard/soft palate without any concordant CT detectable focal mass, may represent physiologic changes however, direct visualization is recommended for further full detail evaluation. 4. Mild increase radiotracer uptake seen in the region of the cricoid/arytenoid cartilages (left greater than right) with maximum SUV value of 3.7, likely represent physiologic changes. 5. 1.5 cm right adrenal FDG avid nodules with maximum SUV value of 5.3, highly suggestive of metastatic disease. 6. Intense FDG avid approximately 2 cm maximum dimension right-sided meso rectal solid mass inseparable from the adjacent part of the serosal surface of the rectum with maximum SUV value of 9.5. Differential diagnostic consideration would include metastatic lymphadenopathy (unknown primary) versus exophytic primary neoplasm arising from the adjacent part of the rectum and anal canal. Interventional radiology consultation may be considered for possible image guided fine-needle aspiration cytology, if clinically appropriate.
== END 2022-05-03 09:44 | disposition home or self-care (01) ==
LOC: HO.PET 09:43
PROVIDERS: PCP Student in an Organized Health Care Education/Training Program; Visit Provider Internal Medicine
DX: Z13.89 Encounter for screening for other disorder (principal)

== ENCOUNTER 2022-05-25 09:30 | Outpatient (REF) | payer OTHER, SELFPAY ==
--- NOTE | 2022-05-25 10:48 | PFT_ITS ---
INDICATION: Lung cancer. SPIROMETRY: FEV1 to FVC of 76% with an FEV1 of 1.67 L which is 67% predicted, an FVC of 2.2 L, which is 66% predicted. No significant response to bronchodilators noted. Maximum voluntary ventilation only 49% predicted. LUNG VOLUMES: Total lung capacity 84% predicted. DIFFUSION CAPACITY: DLCO of 71% predicted. COMPARISONS: None. INTERPRETATION: No obstructive nor restrictive ventilatory defects identified. No significant response to bronchodilators noted. There is a [id number] decrease in the maximum voluntary ventilation secondary to likely deconditioning, although neuromuscular conditions cannot be ruled out. Lung volumes are within normal limits. The patient does have a mild diffusion impairment. Clinical correlation is warranted. Gaetano Valverde MD MR/MODL / [id number]
== END 2022-05-25 09:31 | disposition home or self-care (01) ==
LOC: HO.RESP 09:30
PROVIDERS: PCP Student in an Organized Health Care Education/Training Program; Visit Provider Hospitalist
DX: Z01.818 Encounter for other preprocedural examination (principal); C34.90 Malignant neoplasm of unspecified part of unspecified bronchus or lung
CPT/HCPCS: 94060; 94727; 94729

== ENCOUNTER 2022-06-09 11:54 | Day surgery (SDC) | payer OTHER, SELFPAY ==
[2022-06-03 11:58] VITALS: BMI 23.6
[2022-06-09 12:08] VITALS: BMI 23.2
[2022-06-09 12:26] VITALS: BP 134/60; PULSE 64; RESP 20; TEMP 35.9; O2SAT 98
--- NOTE | 2022-06-09 12:30 | MHC.SHP ---
Pre-Procedural Eval Section A Date of Service: 06/09/22 Section B Chief Complaint: dysphagia,abnormal weight loss,gastro and colitis Details of Present Illness: abn bowel habit, improved since office visit Relevant Family History (Specify if Yes): No Relevant Social History: Tobacco Use Present Medications: see Short Stay Collaborative assessment Medical History: Significant History (Graves' orbitopathy Hypothyroidism Smoker, lung cancer ) History of Previous Operations: Relevant previous surgery/procedure and date(s) (EUS) Allergies: Allergies Allergy/AdvReac Type Severity Reaction Status Date / Time No Known Allergies Allergy Verified 04/28/22 13:42 [No Known Allergies*] Review of Systems Sugical H&P ROS: Negative: Constitution, Cardiovascular, Respiratory, Neurological, Psychiatric, Hem-Onc, Allergic/Immunologic, Gastrointestinal, Genitourinary, Musculoskeletal, Integumentary, Endocrine and Eyes/Ears/Nose/Throat Exam Surgical H&P Exam: Normal: Heart, Normal: Lungs, Normal: Extremities, Normal: Abdomen, Normal: Skin and Normal: Neurological and Significant Findings: HEENT (proptosis of eyes ) Plan Diagnosis/Plan: Unchanged I have reviewed the history and physical and performed a pertinent physical examination on my patient. No changes have occurred unless specified. EGD due to abn imaging an dysphagia, colonoscopy for abn bowel habit.
[2022-06-09] MEDS: Lactated Ringers 1,000 ML 50 ML IVCONT (12:43)
--- NOTE | 2022-06-09 13:13 | HO.ANESPROP2 ---
HPI - Anesthesia Eval Consult details Narrative: 66 M for EGD and colonoscopy adenocarcinoma of lung undergoing chemo As per CT : right paratracheal and subcarinal mediastinal lymph nodes. mass in the right mainstem bronchus adjacent to the enlarged right paratracheal lymph node. [facility] Active Problems Active Problems: All Active Problems (Updated 05/31/22 @ 13:53 by Bre Lewis MD) Adenocarcinoma of lung (Acute) Lung cancer (Acute) Early satiety (Acute) Lymphadenopathy (Acute) Mediastinal mass (Chronic) Smoker (Acute) Cough (Acute) Weight loss (Acute) SOB (shortness of breath) (Acute) Encounter for screening colonoscopy (Acute) Chronic diarrhea (Acute) Dysphagia (Acute) Past Medical History Medical History Graves' orbitopathy Hypothyroidism Lung cancer Smoker Family History Family History Father Diabetes mellitus Mother Alzheimer disease Family history of problems with anesthesia: No Surgical History Surgical History Hx of cataract surgery History of Problems with Anesthesia: No Social History Social History Household Members: None Housing: Apartment Are you a primary urgent care technician to a significant other at home: No Do you presently have visiting nurse or other home services: No Alcohol intake: current Alcohol intake frequency: does not drink Patient Tobacco Use Status: Former Tobacco user Quit Date: quit 1 month ago Tobacco use type: Cigarette Substance Use Type: Club/Manager Of Application Development Drugs and Marijuana service: No Current occupational status: disabled Meds Allergies Allergy/AdvReac Type Severity Reaction Status Date / Time No Known Allergies Allergy Verified 04/28/22 13:42 [No Known Allergies*] Active Medications: Current Medications Lactated Ringer's (Lr) 1,000 mls @ 50 mls/hr IVCONT .Q20H PEREZ Last Admin: 06/09/22 12:43 Dose: 50 mls/hr Home Medications Medication Instructions Recorded Confirmed Last Taken Type buprenorphine 8 mg-naloxone 2 mg 20 mg sublingual DAILY 01/08/21 04/29/22 06/09/22 07:00 History sublingual film divalproex 500 mg tablet,extended 500 mg PO DAILY 01/08/21 04/29/22 Unknown History release 24 hr gemfibrozil 600 mg tablet 600 mg PO BID 01/08/21 04/29/22 Unknown History hydrochlorothiazide 12.5 mg capsule 12.5 mg PO DAILY 01/08/21 04/29/22 Unknown History hydroxyzine HCl 25 mg tablet 25 mg PO QID 01/08/21 04/29/22 Unknown History primidone 250 mg tablet 250 mg PO BID 01/08/21 04/29/22 04/14/22 05:45 History propranolol 160 mg capsule,24 160 mg PO DAILY 01/08/21 04/29/22 Unknown History hr,extended release simvastatin 20 mg tablet 20 mg PO BEDTIME 01/08/21 04/29/22 Unknown History olanzapine 15 mg tablet 1 tab PO BEDTIME 04/04/22 04/29/22 Unknown History polyethylene glycol 3350 17 17 g PO BID PRN Constipation 05/31/22 05/31/22 Unknown History gram/dose oral powder (Miralax) Exam Exam Date and Time: June 09, 2022 1313 Height,Weight and Vital Signs: Height 5 ft 2 in Weight 57.606 kg Last Vital Signs Temp 96.7 F L 06/09/22 12:26 Pulse 64 06/09/22 12:26 Resp 20 06/09/22 12:26 BP 134/60 06/09/22 12:26 Pulse Ox 98 06/09/22 12:26 O2 Del Method 06/09/22 12:26 Airway Mallampati Class: III TM Dist: >3cm Neck ROM: Full Denture: Upper and Lower Loose/Missing/Broken Teeth: Yes Heart: S1,S2 Lungs: b/l breath sounds Assessment and Plan Final Anesthetic Review Family History of Problems with Anesthesia: No History of Problems with Anesthesia: No NPO: Yes ASA Class: IV Final Preanesthetic Review: Meds/Allgs Chart Reviewed, Consent Obtained/Reviewed and Anes Risks/Benef Reviewed Patient Risk: High Procedure Risk: Intermediate Anesthetic Plan Anesthetic Plan: MAC: Disposition: Standard PACU
--- NOTE | 2022-06-09 13:43 | P.OP_ITS ---
Operative Note Operative Note Date of Service: 06/09/22 Narrative: Operative Information Procedure Description: EGD, Colonoscopy Indication: dysphagia, abn imaging with mesorectal mass, abn bowel habit Anesthesia: MAC FLEXIBLE TRANSORAL UPPER GASTROINTESTINAL ENDOSCOPY AND COLONOSCOPY PROCEDURE NOTE UPPER ENDOSCOPY Consent: Indications for the procedure and potential complications of bleeding, perforation, reaction to medications and missed diagnosis were discussed with the patient and informed consent was obtained. Instrument: Olympus GIF H 190 J mid size upper endoscope Monitoring: Vital signs and clinical assessment, continuous EKG monitoring, Pulse oximetry, Carbon Dioxide monitoring and blood pressure monitoring were done throughout the procedure. Procedure: The patient was placed in the left lateral decubitis position and pre-procedure medications were administered and a bite block was placed. The endoscope was inserted into the mouth and advanced under direct vision to the third part of duodenum. A careful inspection was made as the upper endoscope was withdrawn including a retroflexed examination of the proximal stomach; Findings and interventions are described below. Findings: Larynx:normal Esophagus: GE junction at 40 cm, diaphragm hiatus at 40 cm, tight LES, stretched with balloon 14 mm, no tear, UES also stretched to 15 mm, no tear seen Stomach: Indurated mucosa mid stomach, and patchy gastritis. Biopsies were obtained. Grade 2 flap valve on retroflexed examination of the cardia. Duodenum: Mild bulbar duodenitis, bx taken Intervention: Biopsies as noted above COLONOSCOPY Instrument: Olympus variable stiffness pediatric scope 190L Colonoscopy Monitoring: Vital signs and clinical assessment, continuous EKG monitoring, Pulse oximetry, Carbon Dioxide monitoring and blood pressure monitoring were done throughout the procedure. Colon withdrawal time was 12 minutes. Procedure: The patient was placed in the left lateral decubitis position and pre-procedure medications were administered. After a digital rectal examination of the ano-rectum, the video colonoscope was inserted into the rectum and advanced through the colon to the cecum/TI. The colonoscope was slowly withdrawn in a retrograde panoramic fashion and the colon mucosa was carefully examined including a retroflexed view of the rectum. Findings and interventions are described below. Procedure Difficulty: easy Findings: Random colon bx taken Terminal Ileum-normal, bx taken Cecum:normal Ascending Colon: few diverticula seen, 4-5 mm sessile polyp removed with cold forceps Transverse Colon -normal Descending Colon:normal Sigmoid Colon: moderate diverticulosis Rectum: Retroflexion with small internal hemorrhoids, grade I, no mass seen Anorectum - normal Colon preparation: [place] Bowel Preparation Scale Right colon; 2 Transverse colon: 2 Left colon; 2 (0 = Unprepared colon segment with mucosa not seen due to solid stool that cannot be cleared. 1 = Portion of mucosa of the colon segment seen, but other areas of the colon segment not well seen due to staining, residual stool and/or opaque liquid. 2 = Minor amount of residual staining, small fragments of stool and/or opaque liquid, but mucosa of colon segment seen well. 3 = Entire mucosa of colon segment seen well with no residual staining, small fragments of stool or opaque liquid) Impression and Post Procedure Diagnosis: Endoscopy Findings: tight LES, ?paraneoplastic achalasia gastritis Colonoscopy Findings: polyps internal hemorrhoids diverticular disease Plan: Await Pathology results Repeat Colonoscopy in 5-7 years if clinically indicated given his current struggles with lung cancer High fiber diet leaflet avoid straining at stool, epsom salts and sitz bath, anusol supps or cream if swallowing not improved can do timed ba swallow, and if LES not improving, then botox can be tried. Above findings were reviewed with the patient and relevant handouts were provided if indicated.
[2022-06-09 14:30] VITALS: BP 176/100; PULSE 72; RESP 16; TEMP 36.5; O2SAT 97
[2022-06-09 14:45] VITALS: BP 145/67; PULSE 69; RESP 16; O2SAT 95
[2022-06-09 15:00] VITALS: BP 134/64; PULSE 66; RESP 18; O2SAT 95
[2022-06-09 15:15] VITALS: BP 154/71; PULSE 66; RESP 16; TEMP 36.5; O2SAT 95
== END 2022-06-09 15:52 | disposition home or self-care (01) ==
PROVIDERS: PCP Student in an Organized Health Care Education/Training Program; Visit Provider Internal Medicine Gastroenterology
PROC: (CPT 45380; principal; 2022-06-09 13:20)
DX: Z12.11 Encounter for screening for malignant neoplasm of colon (principal); K63.5 Polyp of colon; K52.9 Noninfective gastroenteritis and colitis, unspecified; K57.30 Diverticulosis of large intestine without perforation or abscess without bleeding; K64.0 First degree hemorrhoids; R13.10 Dysphagia, unspecified; K22.4 Dyskinesia of esophagus; R63.4 Abnormal weight loss; Z68.23 Body mass index [BMI] 23.0-23.9, adult; K29.50 Unspecified chronic gastritis without bleeding; K29.80 Duodenitis without bleeding; K44.9 Diaphragmatic hernia without obstruction or gangrene; E05.00 Thyrotoxicosis with diffuse goiter without thyrotoxic crisis or storm; E03.9 Hypothyroidism, unspecified; C34.90 Malignant neoplasm of unspecified part of unspecified bronchus or lung; R68.81 Early satiety; J98.59 Other diseases of mediastinum, not elsewhere classified; F17.210 Nicotine dependence, cigarettes, uncomplicated; Z79.899 Other long term (current) drug therapy
CPT/HCPCS: 45380; 43249; 43239; 88305; 88342; C1726; J2250

== ENCOUNTER → 2022-06-23 10:11 | Outpatient (BNVA) | payer OTHER, SELFPAY | PROVIDERS: PCP Student in an Organized Health Care Education/Training Program; Visit Provider Physician Assistant | DX: C34.90 Malignant neoplasm of unspecified part of unspecified bronchus or lung (principal); R13.10 Dysphagia, unspecified | CPT/HCPCS: 99212 ==

== ENCOUNTER 2022-07-12 09:49 | Outpatient (REF) | payer OTHER, SELFPAY ==
[2022-07-12 10:03] LABS: MANUAL DIFF FLAG NO
[2022-07-12 10:09] LABS: Basophils Absolute Auto 0.1 X10*3/uL (0.0-0.2); Basophils Percent Auto 0.7 % (0-2); Eosinophils Absolute Auto 0.2 X10*3/uL (0.0-0.4); Eosinophils Percent Auto 1.5 % (0-4); Hematocrit 33.5 % (42.0-52.0); Imm Gran Abs Auto 0.21 X10*3/uL (0.00-0.03); Imm Gran Pct Auto 1.7 % (0.0-0.4); Lymphocytes Absolute Auto 1.7 X10*3/uL (1.2-4.9); Lymphocytes Percent Auto 13.5 % (20-40); Mean Corpuscular HGB Conc 32.8 g/dl (31.0-36.0); Mean Corpuscular Hemoglobin 27.7 pg (27.0-33.0); Mean Corpuscular Volume 84.4 fL (80.0-98.0); Mean Platelet Volume 8.5 fL (9.4-12.4); Monocytes Absolute Auto 1.1 X10*3/uL (0.1-1.2); Monocytes Percent Auto 8.6 % (2-11); Neutrophils Absolute Auto 9.2 x10*3/uL (2.0-8.3); Platelet Count 291 X10*3/uL (160-400); Red Blood Count 3.97 X10*6/uL (4.60-5.80); Red Cell Distribution Width 20.8 % (11.0-16.0); White Blood Count 12.4 X10*3/uL (4.8-10.8)
[2022-07-12 10:37] LABS: Alanine Aminotransferase 22 U/L (0-40); Albumin Level 4.2 g/dL (3.5-5.0); Alkaline Phosphatase 136 U/L (39-117); Anion Gap 16 (12-20); Aspartate Amino Transferase 15 U/L (5-37); Bilirubin Total 0.2 mg/dL (0.0-1.0); Blood Urea Nitrogen 12 mg/dL (9-16); Calcium 9.3 mg/dL (8.4-10.2); Carbon Dioxide 28 mmol/L (22-29); Chloride 101 mmol/L (96-108); Estimated Glomerular Filt Rate > 60; Glucose Random 123 mg/dL (60-115); Potassium 4.9 mmol/L (3.3-5.1); Sodium 140 mmol/L (135-145); Total Protein 6.9 g/dL (6.5-8.0)
[2022-07-12 10:46] LABS: Valproate 37.4 mcg/mL (50.0-100.0)
== END 2022-07-12 09:50 | disposition home or self-care (01) ==
LOC: HO.LAB 09:49
PROVIDERS: Internal Medicine; PCP Student in an Organized Health Care Education/Training Program; Visit Provider Psychiatry & Neurology Psychiatry
DX: Z79.899 Other long term (current) drug therapy (principal)
CPT/HCPCS: 36415; 80053; 80164; 82378; 85025

== ENCOUNTER → 2022-07-15 09:28 | Outpatient (BNVA) | payer OTHER, SELFPAY | PROVIDERS: PCP Student in an Organized Health Care Education/Training Program; Visit Provider Internal Medicine Endocrinology, Diabetes & Metabolism | DX: E03.9 Hypothyroidism, unspecified (principal) | CPT/HCPCS: 99212 ==

== ENCOUNTER 2022-07-19 09:33 | Outpatient (REF) | payer OTHER, SELFPAY ==
--- NOTE | ~2022-07-19 | FL_ITS ---
EXAMINATION: FL BARIUM SWALLOW CLINICAL INFORMATION: Difficulty swallowing solid foods. COMPARISON: CT chest 04/11/2022 and barium swallow 04/22/2022. TECHNIQUE: Barium swallow examination is performed using fluoroscopic evaluation in addition to multiple fluoroscopic spot views. The patient is imaged both upright and prone and using both thick and thin sulfate along with effervescent granules. Fluoroscopy time: 2.1 minutes DAP: 14.9 Gycm2 Images: 29 FINDINGS: Following oral administration of thick barium, there is normal propagation of bolus from the oral cavity through the pharynx into the proximal esophagus. No laryngeal penetration or aspiration seen at this time. In the RPO position, there is indentation of posterior upper esophagus from an aberrant origin of the right subclavian artery, visualized on the previous upper GI exam and CT chest exam 04/06/2022. There is a normal peristalsis in the mid and distal esophagus with tertiary peristalsis visualized throughout. There is delayed opening in the GE junction. There is a column of contrast extending the entire esophagus. Besides mild indentation of posterior upper thoracic esophagus, no compression of the esophagus visualized. FL/FL barium swallow IMPRESSION: Abnormal peristalsis of mid and distal esophagus suggestive of presbyesophagus. It has a corkscrew appearance. The GE junction has delayed opening but opens with increased volume of fluid within the esophagus and also with gravity. Aberrant origin of right subclavian artery with mild indentation of the posterior upper thoracic esophagus. The above findings were noted on the previous exam. No laryngeal penetration or aspiration seen at this time.
== END 2022-07-19 09:34 | disposition home or self-care (01) ==
LOC: HO.XRAY 09:33
PROVIDERS: PCP Student in an Organized Health Care Education/Training Program; Visit Provider Physician Assistant
DX: C34.90 Malignant neoplasm of unspecified part of unspecified bronchus or lung (principal); R13.10 Dysphagia, unspecified; J98.59 Other diseases of mediastinum, not elsewhere classified
CPT/HCPCS: 74220

== ENCOUNTER 2022-07-26 09:23 | Outpatient (REF) | payer OTHER, SELFPAY ==
--- NOTE | ~2022-07-26 | MR_ITS ---
EXAMINATION: MR BRAIN WITHOUT AND WITH CONTRAST CLINICAL INFORMATION: 66-year-old with history of lung CA with previous suspicion for metastatic disease to the cerebellum. COMPARISON: 04/08/2022 MRI TECHNIQUE: Multiplanar, multisequence MRI of the brain was obtained before and after the intravenous administration of 5.5 mL Gadavist. FINDINGS: Brain Volume: Mild generalized diffuse parenchymal volume loss within the limitations of qualitative assessment stable in appearance. Structural: No malformations. Brain and Meninges: DWI sequence demonstrates no restricted diffusion to suggest acute or subacute cerebral ischemia. Redemonstrated are scattered multiple T2 hyperintense nonenhancing white matter lesions in the subcortical white matter of both cerebral hemispheres, a few of which are less distinct on the current study but otherwise stable with patchy/confluent zones of FLAIR/T2 hyperintensity also noted in the deep parietal and periatrial white matter bilaterally likely reflecting chronic ischemic microangiopathy unchanged in appearance. The previously noted 4 mm enhancing nodule within the cerebellar vermis slightly to the right of midline is again noted, now measuring 2.5 mm. There is a punctate enhancing focus in the right cerebellar hemisphere more inferiorly on image 6 of series 9, which was noted on previous study and is stable. A previously noted 3 mm enhancing focus on the right side of the cerebellar vermis on image 10 of series 10 of the previous exam is less conspicuous on the current study but is unchanged in size and may be a venous structure. No other abnormal enhancement seen throughout the remainder of the brain. No abnormal leptomeningeal enhancement. No extra-axial fluid collections, hemorrhage, hemosiderin staining or abnormal mineralization, space-occupying process or mass effect. Ventricles and Subarachnoid Spaces: The ventricular system and subarachnoid spaces are stable in appearance without hydrocephalus. Orbital Structures: Bilateral lens extractions are again noted. Note is also made of mild bilateral proptosis which is stable and is nonspecific. Vascular: Signal voids are noted in the visualized major intracranial vessels. Osseous Structures, Sinuses/Mastoids, Extracranial Soft Tissues: There is some mucosal thickening and fluid in the left maxillary sinus improved from previous exam. Osseous marrow signal intensity is grossly unremarkable. 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 MR/MR head/brain wo/w con IMPRESSION: 1. Previously noted 4 mm enhancing nodule in the superior right cerebellar vermis has diminished in size with resolution of previously noted surrounding edema, now measuring 2.5 mm. 2. Punctate nonspecific enhancing focus in the right cerebellar hemisphere more inferiorly is stable and a small enhancing focus in the right cerebellar vermis more inferiorly is less distinct and is probably a vascular structure. Follow-up as per clinical indications. 3. Scattered nonenhancing white matter T2 hyperintensities in the cerebral hemispheres bilaterally which are nonspecific but likely reflect chronic ischemic microangiopathy as noted on previous exam. 4. Improved appearance to the left maxillary sinus inflammatory changes. 5. Bilateral proptosis, stable in appearance.
== END 2022-07-26 09:24 | disposition home or self-care (01) ==
LOC: HO.MRI 09:23
PROVIDERS: Visit Provider Internal Medicine
DX: C34.90 Malignant neoplasm of unspecified part of unspecified bronchus or lung (principal)
CPT/HCPCS: 70553; A9585

== ENCOUNTER 2022-08-09 09:03 | Outpatient (REF) | payer OTHER, SELFPAY ==
--- NOTE | ~2022-08-09 | PE_ITS ---
EXAMINATION: Fluorine-18 FDG PET/CT Scan CLINICAL INDICATION: Subsequent treatment management. Adenocarcinoma of right lung. PROCEDURE: 58 minutes following the intravenous administration of 18.0 mCi of fluorine 18 FDG, images from the base of the skull to the mid thighs were obtained using a combined PET/CT scanner with CT scan based attenuation correction. No intravenous contrast was administered. Transverse, coronal, sagittal, and volume reconstruction projections were obtained. The patient's blood glucose could not be estimated since the glucometer was not working. The radiotracer was injected intravenously through right antecubital superficial vein, without any complications. Total CT exam dose-length product 188.65 mGy-cm * These CT images were obtained using dose optimization techniques as appropriate, variously including the following: Automated exposure control * Adjustment of mA and/or kV according to patient size (this includes techniques or standardized protocols for targeted exams where dose is matched to indication/reason for exam; i.e. extremities or head) * Use of iterative reconstruction technique COMPARISON: PET CT study done on 05/03/2022. MRI of the brain done on 07/26/2022. FINDINGS: NECK AND VISUALIZED HEAD: Previously documented complete opacification of the left maxillary sinus shows mild residual disease in the form of small air-fluid level. No FDG avid disease. THORAX: Previously documented FDG avid right paratracheal mass/lymphadenopathy currently measures 2.3 x 1.2 cm, previously 3.8 x 2.6 cm with SUV max of 4.0, previously 11.4 (61/223). Previously documented FDG avid subcarinal soft tissue mass/lymphadenopathy currently measures approximately 3.0 x 2.4 cm with SUV max of 6.9 (72/223), previously measured 3.0 x 2.3 with SUV max of 9.5. No new FDG avid lung parenchymal abnormality. 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 ABDOMEN AND PELVIS: No FDG avid liver disease. Previously documented FDG avid right adrenal nodule measures approximately 1.5 cm, unchanged with SUV max of 3.2 (207/223), previously 5.3. Interval development of focal FDG avidity is noted within the right-sided colon, in the region of the cecum, proximal ascending colon with SUV max of 6.1 (153/223), direct visualization/colonoscopy may be considered for further clarification, if not recently performed. Previously documented exophytic 2 cm right-sided FDG avid meso rectal mass inseparable from the adjacent part of the large bowel shows significant interval decrease in size and is no longer FDG avid, consistent with complete metabolic response, and anatomical near complete resolution. MUSCULOSKELETAL: Diffuse intense FDG avidity is noted throughout the entire visualized axial and appendicular skeleton, most consistent with changes secondary to interval granulocyte colony stimulating factor administration. Please correlate clinically. Alternatively, differential includes diffuse bone marrow infiltrative and/or replacement process. VASCULAR: Mild diffuse calcific atherosclerotic disease of the aorta and is branches without aneurysm formation. PET/PET CT fusion skull to thigh IMPRESSION: 1. Compared to most recent prior PET CT study done on 05/03/2022, partial metabolic response is noted at the site of the previously documented FDG avid right paratracheal mass/lymphadenopathy and subcarinal soft tissue mass/lymphadenopathy in the form of decreased in FDG avidity at both sites. 2. 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 3. Complete metabolic response as well as near complete anatomical resolution of previously documented 2 cm right sided FDG avid mesorectal mass inseparable from the serosal surface of the adjacent large bowel. 4. Interval development of diffuse intense FDG avidity throughout the entire axial and appendicular skeleton, most consistent with physiologic changes secondary to interval granulocyte colony stimulating factor administration. Please correlate clinically. Differential includes in the appropriate clinical setting, diffuse bone marrow infiltrative and/or replacement pathology. Please note that the sensitivity of the study could potentially be limited since the blood sugar level could not be estimated (the glucometer apparently was not working).
== END 2022-08-09 09:04 | disposition home or self-care (01) ==
LOC: HO.PET 09:03
PROVIDERS: Visit Provider Internal Medicine
DX: Z13.89 Encounter for screening for other disorder (principal)

== ENCOUNTER 2022-08-24 12:52 | Outpatient (REF) | payer OTHER, SELFPAY ==
--- NOTE | ~2022-08-24 | US_ITS ---
EXAMINATION: US VENOUS ULTRASOUND WITH DOPPLER LOWER EXTREMITY, LEFT CLINICAL INFORMATION: Left lower extremity swelling. COMPARISON: None TECHNIQUE: Ultrasound of the deep veins is performed from the hip to the calf with compression sonography and color and pulse Doppler assessment. Spectral analysis with color-flow imaging is performed. FINDINGS: There is normal venous compression and respiratory variation and augmented flow. The visualized common femoral vein, superficial femoral vein, profunda femoral vein, popliteal vein, and the trifurcation region shows no evidence of deep venous thrombosis. No left popliteal cyst. The subcutaneous soft tissues are unremarkable. US/US venous duplex LE LT IMPRESSION: No evidence for deep venous thrombosis in the visualized veins of the left lower extremity.
== END 2022-08-24 12:53 | disposition home or self-care (01) ==
LOC: HO.US 12:52
PROVIDERS: Visit Provider Internal Medicine
DX: C34.90 Malignant neoplasm of unspecified part of unspecified bronchus or lung (principal); M79.89 Other specified soft tissue disorders
CPT/HCPCS: 93971

== ENCOUNTER 2022-12-08 13:04 | Outpatient (REF) | payer OTHER, SELFPAY ==
--- NOTE | ~2022-12-08 | US_ITS ---
EXAMINATION: US VENOUS ULTRASOUND WITH DOPPLER LOWER EXTREMITY, RIGHT CLINICAL INFORMATION: Right leg swelling COMPARISON: None TECHNIQUE: Ultrasound of the deep veins is performed from the hip to the calf with compression sonography and color and pulse Doppler assessment. Spectral analysis with color-flow imaging is performed. FINDINGS: There is normal venous compression and respiratory variation and augmented flow. The visualized common femoral vein, superficial femoral vein, profunda femoral vein, popliteal vein, and the trifurcation region shows no evidence of deep venous thrombosis. There is no significant popliteal fossa cyst. The left common femoral vein appears normal. If the patient's symptoms persist, followup ultrasound in 5 days 7 days might be of value to exclude proximal propagation from a non-visualized calf vein. US/US venous duplex LE RT IMPRESSION: No DVT demonstrated in the right lower extremity.
== END 2022-12-08 13:05 | disposition home or self-care (01) ==
LOC: HO.US 13:04
PROVIDERS: Visit Provider Internal Medicine
DX: R60.9 Edema, unspecified (principal); M79.89 Other specified soft tissue disorders
CPT/HCPCS: 93971

== ENCOUNTER 2022-12-22 08:34 | Day surgery (SDC) | payer OTHER, SELFPAY ==
--- NOTE | 2022-12-21 13:55 | HO.ANESPROP2 ---
Documented by User: Pretty Martinez NP 12/21/22 13:57 HPI - Anesthesia Eval Consult details Narrative: 67 M for Upper Endoscopy with 100 units of botox Suboxone daily EGD and colonoscopy 05/2022 with MAC adenocarcinoma of lung undergoing chemo As per CT : right paratracheal and subcarinal mediastinal lymph nodes. mass in the right mainstem bronchus adjacent to the enlarged right paratracheal lymph node. [facility] Active Problems Active Problems: All Active Problems (Updated 12/19/22 @ 15:08 by Tracy Guardado RN) Dysphagia (Acute) Chronic diarrhea (Acute) Encounter for screening colonoscopy (Acute) SOB (shortness of breath) (Acute) Weight loss (Acute) Cough (Acute) Mediastinal mass (Chronic) Lymphadenopathy (Acute) Early satiety (Acute) Adenocarcinoma of lung (Acute) Dysphagia (Acute) Lung cancer (Acute) Smoker (Acute) Past Medical History Medical History Dysphagia Graves' orbitopathy Hypothyroidism Lung cancer Maintenance chemotherapy following disease Smoker Family History Family History Father Diabetes mellitus Mother Alzheimer disease Family history of problems with anesthesia: No Surgical History Surgical History History of bronchoscopy History of esophagogastroduodenoscopy (EGD) Hx of cataract surgery Hx of colonoscopy History of Problems with Anesthesia: No Social History Social History Household Members: None Housing: Apartment Are you a primary adult daycare coordinator to a significant other at home: No Do you presently have visiting nurse or other home services: No Alcohol intake: current Alcohol intake frequency: does not drink Patient Tobacco Use Status: Former Tobacco user Quit Date: quit 1 month ago Tobacco use type: Cigarette Use of substances other than those prescribed or required for medical reasons: Yes Substance Use Type: Club/Environmental Communications Specialist Drugs and Marijuana Are you DNR?: No Advance Directives: No Advance Directives Information Provided: Yes Recently lost weight without trying: Yes How much weight loss: 24-33 pounds service: No Current occupational status: disabled Meds Allergies Allergy/AdvReac Type Severity Reaction Status Date / Time No Known Allergies Allergy Verified 12/19/22 15:09 [No Known Allergies*] Home Medications Medication Instructions Recorded Confirmed Last Taken Type buprenorphine 8 mg-naloxone 2 mg 20 mg sublingual DAILY 01/08/21 12/22/22 12/22/22 History sublingual film divalproex 500 mg tablet,extended 500 mg PO DAILY 01/08/21 12/22/22 12/22/22 History release 24 hr gemfibrozil 600 mg tablet 600 mg PO BID 01/08/21 12/22/22 12/22/22 History hydrochlorothiazide 12.5 mg capsule 12.5 mg PO DAILY 01/08/21 12/22/22 12/22/22 History hydroxyzine HCl 25 mg tablet 25 mg PO QID 01/08/21 12/22/22 12/22/22 History primidone 250 mg tablet 250 mg PO BID 01/08/21 12/22/22 12/22/22 History propranolol 160 mg capsule,24 160 mg PO DAILY 01/08/21 12/22/22 12/22/22 History hr,extended release simvastatin 20 mg tablet 20 mg PO BEDTIME 01/08/21 07/15/22 Unknown History olanzapine 15 mg tablet 1 tab PO BEDTIME 04/04/22 07/15/22 Unknown History albuterol sulfate 90 mcg/actuation 2 puff inhalation QID 07/15/22 12/22/22 Unknown History aerosol inhaler Exam Exam Date and Time: December 21, 2022 135 Pertinent Lab Results Pertinent Lab Results: Laboratory Tests 12/08/22 12/08/22 09:40 09:40 WBC 8.1 Hgb 11.4 L Hct 34.7 L Plt Count 425 H Sodium 137 Potassium 5.1 Chloride 99 Carbon Dioxide 29 BUN 11 Creatinine 0.60 Assessment and Plan Assessment Anesthesia Assessment: Chart Reviewed Final Anesthetic Review Family History of Problems with Anesthesia: No History of Problems with Anesthesia: No Documented by User: Марина Canada MD 12/22/22 10:31 PMFSH Past Medical History Medical History Dysphagia Graves' orbitopathy Hypothyroidism Lung cancer Maintenance chemotherapy following disease Smoker Family History Family History Father Diabetes mellitus Mother Alzheimer disease Surgical History Surgical History History of bronchoscopy History of esophagogastroduodenoscopy (EGD) Hx of cataract surgery Hx of colonoscopy Social History Social History Household Members: None Housing: Apartment Are you a primary adult daycare coordinator to a significant other at home: No Do you presently have visiting nurse or other home services: No Alcohol intake: current Alcohol intake frequency: does not drink Patient Tobacco Use Status: Former Tobacco user Quit Date: quit 1 month ago Tobacco use type: Cigarette Use of substances other than those prescribed or required for medical reasons: Yes Substance Use Type: Club/Environmental Communications Specialist Drugs and Marijuana Are you DNR?: No Advance Directives: No Advance Directives Information Provided: Yes Recently lost weight without trying: Yes How much weight loss: 24-33 pounds service: No Current occupational status: disabled Meds Allergies Allergy/AdvReac Type Severity Reaction Status Date / Time No Known Allergies Allergy Verified 12/19/22 15:09 [No Known Allergies*] Home Medications Medication Instructions Recorded Confirmed Last Taken Type buprenorphine 8 mg-naloxone 2 mg 20 mg sublingual DAILY 01/08/21 12/22/22 12/22/22 History sublingual film divalproex 500 mg tablet,extended 500 mg PO DAILY 01/08/21 12/22/22 12/22/22 History release 24 hr gemfibrozil 600 mg tablet 600 mg PO BID 01/08/21 12/22/22 12/22/22 History hydrochlorothiazide 12.5 mg capsule 12.5 mg PO DAILY 01/08/21 12/22/22 12/22/22 History hydroxyzine HCl 25 mg tablet 25 mg PO QID 01/08/21 12/22/22 12/22/22 History primidone 250 mg tablet 250 mg PO BID 01/08/21 12/22/22 12/22/22 History propranolol 160 mg capsule,24 160 mg PO DAILY 01/08/21 12/22/22 12/22/22 History hr,extended release simvastatin 20 mg tablet 20 mg PO BEDTIME 01/08/21 07/15/22 Unknown History olanzapine 15 mg tablet 1 tab PO BEDTIME 04/04/22 07/15/22 Unknown History albuterol sulfate 90 mcg/actuation 2 puff inhalation QID 07/15/22 12/22/22 Unknown History aerosol inhaler Exam Height,Weight and Vital Signs: Height 5 ft 2 in Weight 49.895 kg Vital Signs Temp Pulse Resp BP Pulse Ox O2 Del Method 12/22/22 09:08 97.9 F 56 16 128/66 98 Room Air Airway Mallampati Class: II TM Dist: >3cm Neck ROM: Full Denture: Upper and Lower Heart: RRR Lungs: CTAB Other: Proptosis Right eye Assessment and Plan Assessment Anesthesia Assessment: Anesthesia Plan Discussed Final Anesthetic Review NPO: Yes ASA Class: III Final Preanesthetic Review: No Changes in Pt Med Stat, Meds/Allgs Chart Reviewed, Consent Obtained/Reviewed and Anes Risks/Benef Reviewed Patient Risk: Intermediate Procedure Risk: Low Assessment/Block/Sedation in SS: Assess/Block/Sedation-SS Anesthetic Plan Anesthetic Plan: MAC: Disposition: Standard PACU
[2022-12-22 09:01] VITALS: BMI 20.1
[2022-12-22 09:08] VITALS: BP 128/66; PULSE 56; RESP 16; TEMP 36.6; O2SAT 98
[2022-12-22 09:14] LABS: Amphetamine Screen Urine Not Detected (Not Detect); Barbiturates, Urine POSITIVE (Not Detect); Benzodiazepines Screen Urine Not Detected (Not Detect); Cannabinoid Screen Urine POSITIVE (Not Detect); Cocaine Screen Urine Not Detected (Not Detect); Fentanyl, urine Not Detected (Not Detect); Opiate Screen Urine Not Detected (Not Detect); Phencyclidine Screen Urine Not Detected (Not Detect)
[2022-12-22] MEDS: Lactated Ringers 1,000 ML 100 ML IVCONT (09:18)
--- NOTE | 2022-12-22 10:32 | P.HPSUR_ITS ---
Pre-Procedural Eval Section A Date of Service: 12/22/22 Section B Chief Complaint: Dysphagia, Details of Present Illness: concern for achalasia Relevant Family History (Specify if Yes): No Relevant Social History: Other (specify) (thc use) Present Medications: see Short Stay Collaborative assessment Medical History: Significant History (Graves' orbitopathy Hypothyroidism Lung ca ncer Smoker) History of Previous Operations: Relevant previous surgery/procedure and date(s) (cataract) Allergies: Allergies Allergy/AdvReac Type Severity Reaction Status Date / Time No Known Allergies Allergy Verified 12/19/22 15:09 [No Known Allergies*] Review of Systems Sugical H&P ROS: Negative: Constitution, Cardiovascular, Respiratory, Neurological, Psychiatric, Hem-Onc, Allergic/Immunologic, Gastrointestinal, Genitourinary, Musculoskeletal, Integumentary, Endocrine and Eyes/Ears/Nose/Throat Exam Surgical H&P Exam: Normal: HEENT, Normal: Heart, Normal: Lungs, Normal: Extremities, Normal: Abdomen, Normal: Skin and Normal: Neurological Plan Diagnosis/Plan: Unchanged I have reviewed the history and physical and performed a pertinent physical examination on my patient. No changes have occurred unless specified. EGD with ballon dilation and botox injection Time Spent With Patient Time: Total time managing care of this patient today ____ minutes.
--- NOTE | 2022-12-22 10:33 | W.PM.OPN ---
Operative Note Operative Note Date of Service: 12/22/22 Narrative: Procedure Description: EGD Indication: dysphagia Anesthesia: MAC FLEXIBLE TRANSORAL UPPER GASTROINTESTINAL ENDOSCOPY UPPER ENDOSCOPY Consent: Indications for the procedure and potential complications of bleeding, perforation, reaction to medications and missed diagnosis were discussed with the patient and informed consent was obtained. Instrument: Olympus GIF H 190 J mid size upper endoscope Monitoring: Vital signs and clinical assessment, continuous EKG monitoring, Pulse oximetry, Carbon Dioxide monitoring and blood pressure monitoring were done throughout the procedure. Procedure: The patient was placed in the left lateral decubitis position and pre-procedure medications were administered and a bite block was placed. The endoscope was inserted into the mouth and advanced under direct vision to the third part of duodenum. A careful inspection was made as the upper endoscope was withdrawn including a retroflexed examination of the proximal stomach; Findings and interventions are described below. Findings: Larynx:normal Esophagus: GE junction at 38 cm, diaphragm hiatus at 38 cm, tight LES, suspected achalasia, ballon dilation done to 18 mm with some disruption noted but was hard to maintain the pressure in the balloon, botox 100 units then injected around the lower esophagus Stomach: Patchy gastric erythema. Grade 2 flap valve on retroflexed examination of the cardia. Duodenum: Normal bulb and descending duodenum, large duodenal diverticulum noted at the sweep Intervention: Balloon dilation with botox injection Impression/Findings: possible achalasia duodenal diverticulum PLAN: soft diet today advance as tolerated, if ongoing sx then manometry and possible rigid balloon dilation
[2022-12-22 11:13] VITALS: BP 150/64; PULSE 66; RESP 22; TEMP 36.8; O2SAT 100
[2022-12-22 11:28] VITALS: BP 115/74; PULSE 63; RESP 16; TEMP 37; O2SAT 98
== END 2022-12-22 12:23 | disposition home or self-care (01) ==
PROVIDERS: Nurse Practitioner; PCP Student in an Organized Health Care Education/Training Program; Visit Provider Internal Medicine Gastroenterology
PROC: 0DJ08ZZ Inspection of Upper Intestinal Tract, Via Natural or Artificial Opening Endoscopic (ICD-10-PCS; CPT 43235; principal; 2022-12-22 10:30)
DX: R13.10 Dysphagia, unspecified (principal); K22.4 Dyskinesia of esophagus; K57.10 Diverticulosis of small intestine without perforation or abscess without bleeding; R06.02 Shortness of breath; K44.9 Diaphragmatic hernia without obstruction or gangrene; E03.9 Hypothyroidism, unspecified; E05.00 Thyrotoxicosis with diffuse goiter without thyrotoxic crisis or storm; H05.20 Unspecified exophthalmos; C34.90 Malignant neoplasm of unspecified part of unspecified bronchus or lung; J98.59 Other diseases of mediastinum, not elsewhere classified; R59.1 Generalized enlarged lymph nodes; R68.81 Early satiety; Z79.899 Other long term (current) drug therapy; F19.90 Other psychoactive substance use, unspecified, uncomplicated; Z87.891 Personal history of nicotine dependence
CPT/HCPCS: 43249; 43236; 80307; C1726; J0585

== ENCOUNTER 2022-12-27 12:10 | Outpatient (REF) | payer OTHER, SELFPAY ==
--- NOTE | ~2022-12-27 | PE_ITS ---
EXAMINATION: Fluorine-18 FDG PET/CT Scan CLINICAL INDICATION: Subsequent treatment management. Adenocarcinoma of the right lung. PROCEDURE: 66 minutes following the intravenous administration of 18.7 mCi of fluorine 18 FDG, images from the base of the skull to the mid thighs were obtained using a combined PET/CT scanner with CT scan based attenuation correction. No intravenous contrast was administered. Transverse, coronal, sagittal, and volume reconstruction projections were obtained. The patient's blood glucose as determined by a finger stick, was 114 mg/dl immediately prior to injection. The radiotracer was injected intravenously through left antecubital superficial vein, without any complications. Total CT exam dose-length product 211.44 mGy-cm * These CT images were obtained using dose optimization techniques as appropriate, variously including the following: Automated exposure control * Adjustment of mA and/or kV according to patient size (this includes techniques or standardized protocols for targeted exams where dose is matched to indication/reason for exam; i.e. extremities or head) * Use of iterative reconstruction technique COMPARISON: Most recent prior PET CT study done on 08/09/[address] of the chest done on 04/11/2022. Report from prior PET CT study done on 05/03/2022. FINDINGS: NECK AND VISUALIZED HEAD: Near complete opacification of both maxillary sinuses without any FDG avidity, consistent with sinusitis is present, shows interval worsening since the most recent prior study dated 08/09/2022. There are no FDG avid focal disease, unchanged. THORAX: Intense FDG avid right paratracheal soft tissue mass is present measures 2 cm at its maximum short axis dimension (previously 1.8 cm) with SUV max of 6.9 (68/267), previously 3.8. Intense FDG avid subcarinal soft tissue mass currently measures approximately 2.2 cm at its maximum short axis dimension, with SUV max of 7.5 (76/267), previously measured 2.4 cm at its maximum short axis dimension with SUV max of 6.9. No additional new sites of FDG avid disease within the mediastinum or hilum or within the lung boudreaux or within the pleural or pericardial space, unchanged. 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 ABDOMEN AND PELVIS: FDG avid right adrenal approximately 2.1 cm at its maximum dimension mass is present with SUV max of 7.0, previously measured 1.5 cm with SUV max of 3.2, consistent with interval progression of disease. Interval development of mild to moderate focal FDG avidity is seen within the mesorectal region to the right of the midline with SUV max of 4.8 (197/267). Similar finding was present on the study dated 05/03/2022. MUSCULOSKELETAL: Interval resolution of previously documented diffuse FDG avidity throughout the entire axial and visualized appendicular skeleton since the prior study dated 08/09/2022. VASCULAR: Calcific atherosclerotic disease of the aorta and its branches including coronary artery calcifications and no evidence of aneurysm. SUV max OF MEDIASTINAL BLOOD POOL: 1.9 SUV max OF LIVER: 2.5 PET/PET CT fusion skull to thigh IMPRESSION: 1. Interval increase in FDG avidity involving the right paratracheal and subcarinal lymphadenopathy since the prior study dated 08/09/2022. 2. Interval increase in size as well as FDG avidity involving the right adrenal gland since the prior study dated 08/09/2022. 3. Interval development of focal FDG avid disease at the right mesorectal region, new since most recent prior study dated 08/09/2022 however, appears similar to the baseline study dated 05/03/2022. 4. Interval resolution of diffuse FDG avidity throughout the entire axial and appendicular skeleton since the prior study dated 08/09/2022.
== END 2022-12-27 12:11 | disposition home or self-care (01) ==
LOC: HO.PET 12:10
PROVIDERS: PCP Student in an Organized Health Care Education/Training Program; Visit Provider Internal Medicine
DX: Z13.89 Encounter for screening for other disorder (principal)

== ENCOUNTER → 2023-01-05 10:45 | Outpatient (BNVA) | payer OTHER, SELFPAY | PROVIDERS: PCP Student in an Organized Health Care Education/Training Program; Visit Provider Physician Assistant | DX: R13.10 Dysphagia, unspecified (principal); G89.3 Neoplasm related pain (acute) (chronic); C34.90 Malignant neoplasm of unspecified part of unspecified bronchus or lung; J98.59 Other diseases of mediastinum, not elsewhere classified | CPT/HCPCS: 99212 ==

== ENCOUNTER 2023-01-12 09:23 | Outpatient (REF) | payer OTHER, SELFPAY ==
--- NOTE | ~2023-01-12 | MR_ITS ---
EXAMINATION: MR BRAIN WITH AND WITHOUT CONTRAST CLINICAL INFORMATION: Brain metastases COMPARISON: MRI brain 07/26/2022 TECHNIQUE: MRI of the brain was obtained using routine sequences before and following administration of intravenous contrast. A total of 5 mL of Gadavist was administered intravenously. FINDINGS: Motion degraded examination. Interval increase in size of enhancing superior right paramedian vermian lesion in the undersurface of the right tentorial leaflet near the tentorial apex measuring up to 9 x 7 mm, previously 2.5 mm with increased adjacent T2 FLAIR hyperintensity. No significant mass effect or herniation pattern. Previous punctate focus of enhancement within the more inferior right cerebellum is no longer visualized. No other new or enlarging enhancing lesions. No abnormal leptomeningeal enhancement. No acute infarct. The GRE sequence is without susceptibility artifact to suggest acute or chronic blood products. No extra-axial fluid collection. Stable mild volume loss and scattered T2 FLAIR hyperintense foci likely reflecting mild chronic microangiopathy with redemonstrated somewhat hazy T2 FLAIR hyperintensity in the periatrial white matter. Normal dural venous sinus and intracranial arterial flow voids. Normal appearance of the midline structures. Bilateral lens replacements. Increased now complete left and subtotal right maxillary sinus opacification with mucosal hyperenhancement, increased patchy opacification of the right greater than left ethmoid air cells, and again seen opacified presumed hypoplastic right frontal sinus. Proteinaceous Tornwaldt cyst. Increased right mastoid effusion. Normal marrow signal. MR/MR head/brain wo/w con IMPRESSION: 1. Interval increase in size of a 9 mm enhancing lesion in the superior right paramedian vermian region with increased adjacent T2 FLAIR hyperintensity. Previous punctate focus of enhancement in the more inferior right cerebellum is no longer visualized. No other new or enlarging enhancing lesions. 2. Worsening paranasal sinus disease with now complete opacification of the left and subtotal opacification of the right maxillary sinuses and increased opacification throughout the anterior ethmoid air cells, which can be clinically correlated for signs of acute sinusitis. 3. New right mastoid effusion.
== END 2023-01-12 09:24 | disposition home or self-care (01) ==
LOC: HO.MRI 09:23
PROVIDERS: PCP Student in an Organized Health Care Education/Training Program; Visit Provider Internal Medicine
DX: C34.90 Malignant neoplasm of unspecified part of unspecified bronchus or lung (principal); C79.31 Secondary malignant neoplasm of brain
CPT/HCPCS: 70553; A9585

== ENCOUNTER 2023-05-03 10:27 | Outpatient (REF) | payer OTHER, SELFPAY ==
--- NOTE | ~2023-05-03 | XR_ITS ---
EXAMINATION: XR CHEST CLINICAL INFORMATION: Shortness of breath. Lung cancer. Question pleural effusion. COMPARISON: Chest x-ray of 03/10/2022, chest CT of 04/11/2022. [employer] images of the PET/CT of 12/27/2022. TECHNIQUE: 2 views of the chest were obtained. FINDINGS: Cardiomediastinal silhouette is stable with normal cardiac size. Right paratracheal soft tissue opacity appears slightly less prominent compared to previous x-ray of 03/10/2022. Stable mild elevation of the right hemidiaphragm with mild hyperexpansion of the right lung. Trace right pleural effusion. No left pleural effusion. No evidence of new airspace opacities, pulmonary edema or pneumothorax. XR/XR chest 2V IMPRESSION: Trace right pleural effusion. Right paratracheal soft tissue appears to be slightly less prominent compared to previous x-ray. No definite acute pulmonary process otherwise.
== END 2023-05-03 10:28 | disposition home or self-care (01) ==
LOC: HO.XRAY 10:27
PROVIDERS: PCP Student in an Organized Health Care Education/Training Program; Visit Provider Internal Medicine
DX: C34.90 Malignant neoplasm of unspecified part of unspecified bronchus or lung (principal)
CPT/HCPCS: 71046

== ENCOUNTER 2023-06-05 11:35 | Outpatient (AMB) | payer OTHER, SELFPAY ==
--- NOTE | 2023-06-05 11:47 | MHC.OFFVIS ---
Intake Vital Signs 06/05/23 11:54 Height 5 ft 2 in Weight 117 lb BMI 21.4 BP 179/76 H Blood Pressure Location Rt brachial Position Sitting Pulse 53 Intake Visit Reasons: Port- placement Intake Note: This patient presents for a consultation for Port-placement, Patient c/o; reports no changes or complaints. 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 Patient receives chemotherapy for lung cancer. He has been receiving therapy for this for approximately 1 year's time. Chart was reviewed patient evaluated [facility] Medical History Dysphagia Graves' orbitopathy Hypothyroidism Lung cancer Maintenance chemotherapy following disease Smoker Surgical History History of bronchoscopy History of esophagogastroduodenoscopy (EGD) Hx of cataract surgery Hx of colonoscopy Family History Father Diabetes mellitus Mother Alzheimer disease Social History Household Members: None Housing: Apartment Are you a primary housekeeper caregiver to a significant other at home: No Do you presently have visiting nurse or other home services: No Alcohol intake: current Alcohol intake frequency: does not drink Patient Tobacco Use Status: Former Tobacco user Quit Date: quit 1 month ago Tobacco use type: Cigarette 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 Drugs and Marijuana service: No Current occupational status: disabled Physical Exam Vital Signs: Last Vital Signs Pulse 53 06/05/23 11:54 BP 179/76 H 06/05/23 11:54 BMI result Body Mass Index 21.4 Const Other: Thin frail-appearing male Chest Other: Chest breath sounds bilaterally, HS 1 in 2 GI Other: Abdomen soft benign Assessment & Plan Assessment & Plan (1) Lung cancer: Code(s): C34.90 - Malignant neoplasm of unspecified part of unspecified bronchus or lung Plan Risks, benefits, alternatives of Port-A-Cath placement reviewed the patient and his son and included but not limited to bleeding, infection, numbness, pain, scarring, pneumothorax, port dislodgement and they wish to proceed. All questions were answered. Arrangements were made for this. Medications: Discontinued ondansetron 8 mg PO Q8H PRN 60 tabs 1RF Nausea sennosides-docusate sodium 8.6-50 mg 1 tab-cap PO BEDTIME 30 tabs 2RF Coding Level of Care Code New Pt Level 5 (17007) Diagnoses Lung cancer C34.90
[2023-06-05 11:54] VITALS: BP 179/76; PULSE 53; BMI 21.4
== END 2023-06-05 12:00 | disposition home or self-care (01) ==
PROVIDERS: PCP Student in an Organized Health Care Education/Training Program; Referring Provider Internal Medicine; Visit Provider Surgery
DX: C34.90 Malignant neoplasm of unspecified part of unspecified bronchus or lung (principal); Z79.60 Long term (current) use of unspecified immunomodulators and immunosuppressants
CPT/HCPCS: 99204

== ENCOUNTER → 2023-06-05 11:35 | Outpatient (BNVA) | payer OTHER, SELFPAY | PROVIDERS: PCP Student in an Organized Health Care Education/Training Program; Referring Provider Internal Medicine; Visit Provider Surgery | DX: Z45.2 Encounter for adjustment and management of vascular access device (principal); Z51.11 Encounter for antineoplastic chemotherapy; C34.90 Malignant neoplasm of unspecified part of unspecified bronchus or lung; F17.210 Nicotine dependence, cigarettes, uncomplicated | CPT/HCPCS: 99202 ==

== ENCOUNTER 2023-06-06 08:50 | Outpatient (REF) | payer OTHER, SELFPAY ==
--- NOTE | ~2023-06-06 | PE_ITS ---
EXAMINATION: Fluorine-18 FDG PET/CT Scan CLINICAL INDICATION: Subsequent treatment management. Malignant neoplasm right lung, restaging. PROCEDURE: 58 minutes following the intravenous administration of 19.0 mCi of fluorine 18 FDG, images from the base of the skull to the mid thighs were obtained using a combined PET/CT scanner with CT scan based attenuation correction. No oral contrast was administered. No intravenous contrast was administered. Transverse, coronal, sagittal, and volume reconstruction projections were obtained. The patient's blood glucose as determined by a finger stick, was 112 mg/dl immediately prior to injection. Total CT exam dose-length product 363.28 mGy-cm * These CT images were obtained using dose optimization techniques as appropriate, variously including the following: Automated exposure control * Adjustment of mA and/or kV according to patient size (this includes techniques or standardized protocols for targeted exams where dose is matched to indication/reason for exam; i.e. extremities or head) * Use of iterative reconstruction technique COMPARISON: Several prior PET/CT scans are available for comparison, the most recent dated 12/27/2022 and the least recent dated 05/03/2022. FINDINGS: (Slice numbers described in this report are numbered superiorly to inferiorly with slice #1 in the head) NECK AND VISUALIZED HEAD: No foci of abnormal FDG activity are noted. The distribution of FDG activity is physiological. There is no cervical lymphadenopathy. Bilateral maxillary sinus opacities are present, partial on the right and complete on the left, with no associated abnormal FDG activity. The appearance is not significantly changed from the 12/27/2022 PET/CT scan or the subsequent 01/12/2023 MRI of the head. A subcentimeter enhancing lesion in the right paramidline vermis visualized on the 01/12/2023 MRI of the head is not visualized on this study, but that focus is likely below the resolution of these FDG PET images. THORAX: There is mild FDG activity in a small focus in the right lower paratracheal region now showing SUVmax 3.2 slice 68/267. This is much less intense than SUVmax 6.9 reported on the prior 12/27/2022 PET/CT scan. An additional FDG avid subcarinal focus that showed SUVmax 7.5 on 12/27/2022 shows only weak FDG activity on the current study, SUVmax 2.4, slice 75/267. There are no additional foci of abnormal FDG activity in the chest. No pulmonary nodules are visualized. A small right pleural effusion is present, and is new since 12/27/2022. This shows no abnormal FDG activity. There is mild adjacent compressive atelectasis. There is no left-sided pleural fluid, pneumothorax, or pericardial fluid. No additional mediastinal, supraclavicular, or axillary lymphadenopathy is present. ABDOMEN AND PELVIS: There is now mild FDG activity, SUVmax 3.2, slice 114/287 and a right adrenal nodule, previously SUVmax 7.0. This now measures 2.0 x 1.1 cm in largest transverse dimensions, and appears slightly smaller in size than on 12/27/2022. There are no additional foci of abnormal FDG activity in the abdomen or pelvis. An FDG avid focus in the right mesial rectal region on the 12/27/2022 study is no longer present. The liver, gallbladder, spleen, kidneys, left adrenal gland, and pancreas appear unremarkable. There is mild FDG activity throughout the gastrointestinal tract without a suspicious focal component. There is diverticulosis without evidence of diverticulitis. The hollow viscera are otherwise unremarkable. The pelvic organs are unremarkable. There is no retroperitoneal, mesenteric, pelvic or inguinal lymphadenopathy. MUSCULOSKELETAL: There are no foci of abnormal FDG activity in the osseous structures. There are degenerative changes in the spine but no suspicious sclerotic or lytic lesions are visualized. VASCULAR: Vascular calcifications including coronary are noted. PET/PET CT fusion skull to thigh IMPRESSION: 1. There is been a marked metabolic response to therapy of FDG avid lesions present on the prior 12/27/[address] scan, as described above. Mild FDG activity persists in 2 mediastinal foci, although these are markedly diminished in intensity, and in an FDG avid right adrenal lesion which is also less intense. 2. There is been complete resolution of a right pararectal FDG avid focus present on the 12/27/2022 study. 3. No new abnormalities suspicious other metastatic or malignant lesions are noted. 4. Diffuse vascular calcifications including coronary.
== END 2023-06-06 08:51 | disposition home or self-care (01) ==
LOC: HO.PET 08:50
PROVIDERS: PCP Student in an Organized Health Care Education/Training Program; Visit Provider Internal Medicine
DX: Z13.89 Encounter for screening for other disorder (principal)

== ENCOUNTER 2023-06-09 07:33 | Day surgery (SDC) | payer OTHER, SELFPAY ==
--- NOTE | 2023-06-08 10:31 | HO.ANESPROP2 ---
Documented by User: Pretty Martinez NP 06/08/23 10:33 HPI - Anesthesia Eval Consult details Narrative: 67yo M for Port-a-Cath Insertion,Fluoroscopy, doppler u/s Chemo for Lung CA Suboxone daily PMFSH Active Problems Active Problems: All Active Problems Dysphagia (Acute) Chronic diarrhea (Acute) Encounter for screening colonoscopy (Acute) SOB (shortness of breath) (Acute) Weight loss (Acute) Cough (Acute) Mediastinal mass (Chronic) Lymphadenopathy (Acute) Early satiety (Acute) Adenocarcinoma of lung (Acute) Dysphagia (Acute) Lung cancer (Acute) Smoker (Acute) Past Medical History Medical History (Updated 08/30/23 @ 10:06 by Minh Naik MD) Wound dehiscence, surgical Maintenance chemotherapy following disease Dysphagia Smoker Graves' orbitopathy Hypothyroidism Family History Family History Father Diabetes mellitus Mother Alzheimer disease Family history of problems with anesthesia: No Surgical History Surgical History History of bronchoscopy History of esophagogastroduodenoscopy (EGD) Hx of colonoscopy Lung cancer Hx of cataract surgery History of Problems with Anesthesia: No Social History Household Members: None Housing: Apartment Are you a primary health care analyst to a significant other at home: No Do you presently have visiting nurse or other home services: No Alcohol intake: current Alcohol intake frequency: does not drink Patient Tobacco Use Status: Former Tobacco user Quit Date: quit 1 month ago Tobacco use type: Cigarette Use of substances other than those prescribed or required for medical reasons: Yes 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 If so, by whom?: No Do you feel safe in your current relationship?: No Current Relationship Do you have thoughts of harming others: None Do you have a plan to hurt others: No Plan Do you have the means to hurt others: No Recently lost weight without trying: Yes How much weight loss: 34pounds or more Eating poorly because of decreased appetite: Yes Nutrition screen score: 7 service: No Current occupational status: disabled Meds Allergies Allergy/AdvReac Type Severity Reaction Status Date / Time No Known Allergies Allergy Verified 08/30/23 09:50 [No Known Allergies*] Home Medications Medication Instructions Recorded Confirmed Last Taken Type buprenorphine 8 mg-naloxone 2 mg 20 mg sublingual DAILY 01/08/21 09/04/23 07/18/23 History sublingual film divalproex 500 mg tablet,extended 500 mg PO DAILY 01/08/21 09/04/23 12/22/22 History release 24 hr hydrochlorothiazide 12.5 mg capsule 12.5 mg PO DAILY 01/08/21 09/04/23 06/09/23 History hydroxyzine HCl 25 mg tablet 25 mg PO QID 01/08/21 09/04/23 06/09/23 History primidone 250 mg tablet 250 mg PO BID 01/08/21 09/04/23 12/22/22 History propranolol 160 mg capsule,24 160 mg PO DAILY 01/08/21 09/04/23 07/18/23 History hr,extended release olanzapine 15 mg tablet 1 tab PO BEDTIME 04/04/22 09/04/23 Unknown History simvastatin 20 mg tablet 20 mg PO BEDTIME 06/05/23 09/04/23 Unknown History Exam Exam Date and Time: June 08, 2023 1031 Pertinent Lab Results Pertinent Lab Results: Laboratory Tests 05/25/23 05/25/23 09:14 09:14 WBC 12.5 H Hgb 12.9 L Hct 40.0 L Plt Count 259 Sodium 139 Potassium 4.7 Chloride 100 Carbon Dioxide 31 H BUN 21 H Creatinine 0.82 Assessment and Plan Assessment Anesthesia Assessment: Chart Reviewed Final Anesthetic Review Family History of Problems with Anesthesia: No History of Problems with Anesthesia: No Documented by User: Ben Doshi MD 09/07/23 23:08 [facility] Past Medical History Medical History (Updated 08/30/23 @ 10:06 by Minh Naik MD) Wound dehiscence, surgical Maintenance chemotherapy following disease Dysphagia Smoker Graves' orbitopathy Hypothyroidism Family History Family History Father Diabetes mellitus Mother Alzheimer disease Surgical History Surgical History History of bronchoscopy History of esophagogastroduodenoscopy (EGD) Hx of colonoscopy Lung cancer Hx of cataract surgery Social History Household Members: None Housing: Apartment Are you a primary health care analyst to a significant other at home: No Do you presently have visiting nurse or other home services: No Alcohol intake: current Alcohol intake frequency: does not drink Patient Tobacco Use Status: Former Tobacco user Quit Date: quit 1 month ago Tobacco use type: Cigarette Use of substances other than those prescribed or required for medical reasons: Yes 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 If so, by whom?: No Do you feel safe in your current relationship?: No Current Relationship Do you have thoughts of harming others: None Do you have a plan to hurt others: No Plan Do you have the means to hurt others: No Recently lost weight without trying: Yes How much weight loss: 34pounds or more Eating poorly because of decreased appetite: Yes Nutrition screen score: 7 service: No Current occupational status: disabled Meds Allergies Allergy/AdvReac Type Severity Reaction Status Date / Time No Known Allergies Allergy Verified 08/30/23 09:50 [No Known Allergies*] Home Medications Medication Instructions Recorded Confirmed Last Taken Type buprenorphine 8 mg-naloxone 2 mg 20 mg sublingual DAILY 01/08/21 09/04/23 07/18/23 History sublingual film divalproex 500 mg tablet,extended 500 mg PO DAILY 01/08/21 09/04/23 12/22/22 History release 24 hr hydrochlorothiazide 12.5 mg capsule 12.5 mg PO DAILY 01/08/21 09/04/23 06/09/23 History hydroxyzine HCl 25 mg tablet 25 mg PO QID 01/08/21 09/04/23 06/09/23 History primidone 250 mg tablet 250 mg PO BID 01/08/21 09/04/23 12/22/22 History propranolol 160 mg capsule,24 160 mg PO DAILY 01/08/21 09/04/23 07/18/23 History hr,extended release olanzapine 15 mg tablet 1 tab PO BEDTIME 04/04/22 09/04/23 Unknown History simvastatin 20 mg tablet 20 mg PO BEDTIME 06/05/23 09/04/23 Unknown History Exam Airway Mallampati Class: III Denture: Upper and Lower Loose/Missing/Broken Teeth: Yes Assessment and Plan Final Anesthetic Review NPO: Yes ASA Class: IV Final Preanesthetic Review: Meds/Allgs Chart Reviewed, Consent Obtained/Reviewed and Anes Risks/Benef Reviewed Patient Risk: High Procedure Risk: Intermediate Anesthetic Plan Anesthetic Plan: MAC: Disposition: Standard PACU
--- NOTE | 2023-06-08 16:19 | MHC.SHP ---
Pre-Procedural Eval Section A Date of Service: 06/08/23 The patient is an INPATIENT: No Changes since office visit: No Cold of Flu in the past 2 weeks, No New Medical Problems, No Changes in Medication and No Patient answered all questions The History & Physical has been completed within 30 days and I have reviewed it.: Yes Section B Chief Complaint: Malignant neoplasm of unspecified part of unspecif Allergies: Allergies Allergy/AdvReac Type Severity Reaction Status Date / Time No Known Allergies Allergy Verified 06/05/23 11:55 [No Known Allergies*] Plan I have reviewed the history and physical and performed a pertinent physical examination on my patient. No changes have occurred unless specified. Time Spent With Patient Time: Total time managing care of this patient today ____ minutes.
--- NOTE | ~2023-06-09 | FL_ITS ---
EXAMINATION: XR FLUOROSCOPY WITH IMAGES CLINICAL INFORMATION: Port-A-Cath insertion. COMPARISON: None available. TECHNIQUE: Fluoroscopy Supervised By: Dr. Rafael Reynolds. Fluoroscopy Time: 4.5 seconds. Cumulative Dose: 0.59 mGy. DAP: None available. Images: 1. FINDINGS: Single fluoroscopic image demonstrates a right jugular port with tip projecting over the SVC. FL/FL guidance in OR IMPRESSION: Fluoroscopy guidance for Port-A-Cath placement.
[2023-06-09 08:16] VITALS: BP 159/60; PULSE 47; RESP 16; TEMP 36.2; O2SAT 98; BMI 21.0
[2023-06-09] MEDS: Lactated Ringers 1,000 ML 100 ML IVCONT (08:45)
--- NOTE | 2023-06-09 10:55 | W.PM.OPN ---
Operative Note Operative Note Date of Service: 06/09/23 Narrative: Preoperative diagnosis: [] Lung cancer Postop diagnosis: [] Same Procedure [] right internal jugular vein Port-A-Cath placement with Doppler ultrasound guidance and fluoroscopy Surgeon: [] Rodolfo Assistant Restaurant General Manager: [] ELEN Hernández Type of Anesthesia: [] MAC Indication for surgery: [] Chemotherapy Findings: [] Patient brought to the operating room, placed on the operative table in supine position, after adequate level of MAC anesthesia was induced, the right neck and chest were prepped and draped in usual sterile fashion. Using Doppler ultrasound guidance, the right internal jugular vein was identified and cannulated using Seldinger technique. A wire was advanced to the level of superior vena cava under fluoroscopic guidance. A pocket was fashioned approximately 4 fingerbreadths below the cannulation site and tunneled to the wire. Catheter was placed to the subcutaneous tunnel, connected to the port, and the port secured to the pocket using 3-0 Vicryl sutures. Dilating sheath was then placed over the wire again under fluoroscopic guidance and wire retrieved. Pre hep flushed catheter was advanced level superior vena cava under fluoroscopic guidance. Peel-away sheath was removed without incident. Antegrade and retrograde flow were easily established. Wounds was irrigated, secured hemostasis, and closed using interrupted inverted dermal 3-0 Vicryl sutures followed by Steri-Strips and sterile dressings. Sponge, needle, and instrument counts were reported to be correct. Patient tolerated the procedure well and emerged anesthesia stable condition. EBL minimal. Postprocedure intraop chest x-ray demonstrated catheter in good position with no pneumothorax.
[2023-06-09 11:03] VITALS: BP 155/65; PULSE 47; RESP 15; TEMP 37; O2SAT 100
[2023-06-09 11:18] VITALS: BP 151/69; PULSE 46; RESP 16; O2SAT 96
[2023-06-09 11:33] VITALS: BP 149/67; PULSE 47; RESP 16; TEMP 36.4; O2SAT 98
== END 2023-06-09 11:50 | disposition home or self-care (01) ==
PROVIDERS: PCP Student in an Organized Health Care Education/Training Program; Visit Provider Surgery
PROC: (CPT 36561; principal; 2023-06-09 09:20)
DX: Z45.2 Encounter for adjustment and management of vascular access device (principal); C34.90 Malignant neoplasm of unspecified part of unspecified bronchus or lung; H05.20 Unspecified exophthalmos; E03.9 Hypothyroidism, unspecified; Z79.899 Other long term (current) drug therapy; F19.10 Other psychoactive substance abuse, uncomplicated; F12.90 Cannabis use, unspecified, uncomplicated; Z87.891 Personal history of nicotine dependence
CPT/HCPCS: 36561; C1788; J0131; J0690; J1643; J2250

== ENCOUNTER → 2023-06-09 07:33 | Outpatient (BNV) | payer OTHER, SELFPAY | PROVIDERS: PCP Student in an Organized Health Care Education/Training Program; Visit Provider Surgery | DX: C34.90 Malignant neoplasm of unspecified part of unspecified bronchus or lung (principal) | CPT/HCPCS: 36561; 76937; 77001 ==

== ENCOUNTER 2023-07-06 08:14 | Outpatient (AMB) | payer OTHER, SELFPAY ==
[2023-07-06 08:25] VITALS: BP 178/75; PULSE 47; BMI 22.7
--- NOTE | 2023-07-06 08:25 | MHC.OFFVIS ---
Intake Vital Signs 07/06/23 08:25 Height 5 ft 2 in Weight 124 lb BMI 22.7 BP 178/75 H Blood Pressure Location Rt brachial Position Sitting Pulse 47 L Intake Visit Reasons: Infected port site Intake Note: Patient here to evaluate port a cath site. C/o redness, tender to touch. Started Cephalexin yesterday. 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 Seen yesterday and chemotherapy area and some erythema. Chemo was held patient was given oral antibiotics and now presents here for further evaluation. Patient has no significant port site symptoms or fever. [facility] Medical History Maintenance chemotherapy following disease Dysphagia Smoker Graves' orbitopathy Hypothyroidism Surgical History History of bronchoscopy History of esophagogastroduodenoscopy (EGD) Hx of colonoscopy Lung cancer Hx of cataract surgery Family History Father Diabetes mellitus Mother Alzheimer disease Social History Household Members: None Housing: Apartment Are you a primary healthcare or medical to a significant other at home: No Do you presently have visiting nurse or other home services: No Alcohol intake: current Alcohol intake frequency: does not drink Patient Tobacco Use Status: Former Tobacco user Quit Date: quit 1 month ago Tobacco use type: Cigarette 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 Assessment & Plan Assessment & Plan (1) Encounter for care related to Port-a-Cath: Code(s): Z45.2 - Encounter for adjustment and management of vascular access device Plan Patient center to continue current plan. Complete antibiotic course, warm compresses to the area, and he will see me in few days time for follow-up. During the interim should there be any issues or complaints, instructed to call the office or over the weekend go to ER. All questions were answered. Coding Level of Care Code Global (15287) Diagnoses Encounter for care related to Port-a-Cath Z45.2
== END 2023-07-06 08:28 | disposition home or self-care (01) ==
PROVIDERS: PCP Student in an Organized Health Care Education/Training Program; Referring Provider Internal Medicine; Visit Provider Surgery
DX: Z45.2 Encounter for adjustment and management of vascular access device (principal)
CPT/HCPCS: 99024

== ENCOUNTER → 2023-07-06 08:14 | Outpatient (BNVA) | payer OTHER, SELFPAY | PROVIDERS: PCP Student in an Organized Health Care Education/Training Program; Referring Provider Internal Medicine; Visit Provider Surgery ==

== ENCOUNTER 2023-07-10 08:30 | Outpatient (AMB) | payer OTHER, SELFPAY ==
[2023-07-10 08:36] VITALS: BP 180/78; PULSE 48; BMI 22.5
--- NOTE | 2023-07-10 08:36 | MHC.OFFVIS ---
Intake Vital Signs 07/10/23 08:36 Height 5 ft 2 in Weight 123 lb BMI 22.5 BP 180/78 H Blood Pressure Location Lt brachial Position Sitting Pulse 48 L Intake Visit Reasons: Infected port site, re-check Intake Note: Patient here for port re-check. Reports site looks like is healing well. Denies pain, oozing. Still taking cephalexin course. Human Resources Office Manager Required: No Accompanied by: Son Allergies No Known Allergies [No Known Allergies*] Allergy (Verified 07/10/23 08:37) HPI HPI Comments History of Present Illness Details Patient presents with son for follow-up. He has no port site issues or complaints. He is completing his antibiotic course. [facility] Medical History Maintenance chemotherapy following disease Dysphagia Smoker Graves' orbitopathy Hypothyroidism Surgical History History of bronchoscopy History of esophagogastroduodenoscopy (EGD) Hx of colonoscopy Lung cancer Hx of cataract surgery Family History Father Diabetes mellitus Mother Alzheimer disease Social History Household Members: None Housing: Apartment Are you a primary hearing healthcare practitioner to a significant other at home: No Do you presently have visiting nurse or other home services: No Alcohol intake: current Alcohol intake frequency: does not drink Patient Tobacco Use Status: Former Tobacco user Quit Date: quit 1 month ago Tobacco use type: Cigarette 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 No evidence of any fluctuance or abscess. Assessment & Plan Assessment & Plan (1) Encounter for care related to Port-a-Cath: Code(s): Z45.2 - Encounter for adjustment and management of vascular access device Plan Patient is tentatively scheduled for chemotherapy this Monday. Should the oncology department feeling comfortable with port site appearance, patient and his son have been instructed to come up to the office directly from the cancer center for further evaluation. Otherwise if there is continued improvement, port site can be used. Coding Level of Care Code Global (81588) Diagnoses Encounter for care related to Port-a-Cath Z45.2
== END 2023-07-10 08:45 | disposition home or self-care (01) ==
PROVIDERS: PCP Student in an Organized Health Care Education/Training Program; Visit Provider Surgery
DX: Z45.2 Encounter for adjustment and management of vascular access device (principal)
CPT/HCPCS: 99024

== ENCOUNTER → 2023-07-10 08:30 | Outpatient (BNVA) | payer OTHER, SELFPAY | PROVIDERS: PCP Student in an Organized Health Care Education/Training Program; Visit Provider Surgery ==

== ENCOUNTER 2023-07-12 08:23 | Outpatient (AMB) | payer OTHER, SELFPAY ==
[2023-07-12 08:30] VITALS: BP 170/74; PULSE 50
--- NOTE | 2023-07-12 08:30 | A.OFFVIS_ITS ---
Intake Vital Signs 07/12/23 08:30 Weight 125 lb BP 170/74 H Blood Pressure Location Rt brachial Position Sitting Pulse 50 Intake Visit Reasons: Infected port site, re-check Intake Note: Patient was sent over form oncology. Port site looks red. Patient still taking Cephalexin course. Mechanical Developer Prover Required: No Accompanied by: Self / Same As Patient Allergies No Known Allergies [No Known Allergies*] Allergy (Verified 07/12/23 08:32) HPI HPI Comments History of Present Illness Details Patient was seen by Oncology in for chemotherapy am presents here for further evaluation of his port site. He is completing his antibiotic course. He is applying warm compresses to the area. He denies any fever chills. PFSH Medical History Maintenance chemotherapy following disease Dysphagia Smoker Graves' orbitopathy Hypothyroidism Surgical History History of bronchoscopy History of esophagogastroduodenoscopy (EGD) Hx of colonoscopy Lung cancer Hx of cataract surgery Family History Father Diabetes mellitus Mother Alzheimer disease Social History Household Members: None Housing: Apartment Are you a primary care management specialist to a significant other at home: No Do you presently have visiting nurse or other home services: No Alcohol intake: current Alcohol intake frequency: does not drink Patient Tobacco Use Status: Former Tobacco user Quit Date: quit 1 month ago Tobacco use type: Cigarette 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 No evidence of any fluctuance or abscess. Assessment & Plan Assessment & Plan (1) Encounter for care related to Port-a-Cath: Code(s): Z45.2 - Encounter for adjustment and management of vascular access device Plan Patient has completed antibiotic course and continue local therapy. He will see me on Monday next week. Next chemo is tentatively scheduled for next Monday. All questions were answered. Coding Level of Care Code Global (38089) Diagnoses Encounter for care related to Port-a-Cath Z45.2
== END 2023-07-12 08:42 | disposition home or self-care (01) ==
PROVIDERS: PCP Student in an Organized Health Care Education/Training Program; Referring Provider Internal Medicine; Visit Provider Surgery
DX: Z45.2 Encounter for adjustment and management of vascular access device (principal)
CPT/HCPCS: 99024

== ENCOUNTER → 2023-07-12 08:23 | Outpatient (BNVA) | payer OTHER, SELFPAY | PROVIDERS: PCP Student in an Organized Health Care Education/Training Program; Visit Provider Surgery ==

== ENCOUNTER 2023-07-18 09:56 | Outpatient (AMB) | payer MEDICARE, SELFPAY ==
[2023-07-18 10:13] VITALS: BP 186/80; PULSE 47; BMI 22.7
--- NOTE | 2023-07-18 10:13 | MHC.OFFVIS ---
Intake Vital Signs 07/18/23 10:13 Height 5 ft 2 in Weight 124 lb BMI 22.7 BP 186/80 H Blood Pressure Location Rt brachial Position Sitting Pulse 47 L Intake Visit Reasons: Infected port site, re-check Intake Note: Patient here to f/u portacath site. Reports site healing much better. Still taking cephalexin course. Feeling anxious today. Due to get chemo txt after this appointment. Sales Account Manager Required: No Accompanied by: son Ketan Allergies No Known Allergies [No Known Allergies*] Allergy (Verified 07/18/23 10:14) HPI HPI Comments History of Present Illness Details Patient presents with his son for follow-up. PFSH Medical History Maintenance chemotherapy following disease Dysphagia Smoker Graves' orbitopathy Hypothyroidism Surgical History History of bronchoscopy History of esophagogastroduodenoscopy (EGD) Hx of colonoscopy Lung cancer Hx of cataract surgery Family History Father Diabetes mellitus Mother Alzheimer disease Social History Household Members: None Housing: Apartment Are you a primary client care specialist to a significant other at home: No Do you presently have visiting nurse or other home services: No Alcohol intake: current Alcohol intake frequency: does not drink Patient Tobacco Use Status: Former Tobacco user Quit Date: quit 1 month ago Tobacco use type: Cigarette 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 Chest Other: Chest breath sounds bilaterally. HS 1 and 2. Patient has complete wound breakdown and visualization of his right chest port. Assessment & Plan Assessment & Plan (1) Encounter for care related to Port-a-Cath: Code(s): Z45.2 - Encounter for adjustment and management of vascular access device (2) Local infection due to Port-A-Cath: Code(s): T80.212A - Local infection due to central venous catheter, initial encounter (3) Encounter for insertion of tunneled central venous catheter (CVC) with port: Code(s): Z45.2 - Encounter for adjustment and management of vascular access device Plan Plan is to take the patient to the OR today for new port placement and old port removal. Fortunately, patient did not have breakfast. Risks, benefits, alternatives of the procedure once again reviewed with the patient and his son included but not limited to bleeding, infection, recurrence of skin breakdown, numbness, pain, scarring, pneumothorax and the patient wished to proceed. All questions were answered. Arrangements were made for this. Coding Level of Care Code Est Pt Level 5 (30134) Global (35085) Diagnoses Encounter for care related to Port-a-Cath Z45.2 Local infection due to Port-A-Cath T80.212A Encounter for insertion of tunneled central venous catheter (CVC) with port Z45.2
== END 2023-07-18 10:23 | disposition home or self-care (01) ==
PROVIDERS: PCP Student in an Organized Health Care Education/Training Program; Visit Provider Surgery
DX: Z45.2 Encounter for adjustment and management of vascular access device (principal); T80.212A Local infection due to central venous catheter, initial encounter
CPT/HCPCS: 99024

== ENCOUNTER → 2023-07-18 09:56 | Outpatient (BNVA) | payer MEDICARE, SELFPAY | PROVIDERS: PCP Student in an Organized Health Care Education/Training Program; Visit Provider Surgery ==

== ENCOUNTER 2023-07-18 11:44 | Day surgery (SDC) | payer MEDICARE, MEDICAID, SELFPAY ==
--- NOTE | ~2023-07-18 | XR_ITS ---
EXAMINATION: XR CHEST CLINICAL INFORMATION: Post catheter placement COMPARISON: 05/03/23 TECHNIQUE: Frontal portable view of the chest was obtained. FINDINGS: There is rotation to the right. Tracheal position is difficult to determine. Devices overlie the patient. There is a reservoir projecting over the left mid chest with an associated vascular catheter looping in the region of the thoracic inlet on the left left and terminating near the expected junction of SVC with right atrium. No large hilar mass. No alveolar edema. There is some hazy density associated with the right fissure. Slight indistinctness of the right lateral costophrenic sulcus similar to previous. No pneumothorax. Elevated right hemidiaphragm. Limited bone detail XR/XR chest 1V IMPRESSION: No pneumothorax demonstrated following vascular catheter placement. Elevated right hemidiaphragm.
[2023-07-18 13:52] VITALS: BMI 22.0
[2023-07-18 13:56] VITALS: BP 171/66; PULSE 47; RESP 18; TEMP 36.1; O2SAT 97
[2023-07-18] MEDS: Lactated Ringers 1,000 ML 50 ML IVCONT (14:34)
--- NOTE | 2023-07-18 16:06 | MHC.SHP ---
Pre-Procedural Eval Section A Date of Service: 07/18/23 The patient is an INPATIENT: No Changes since office visit: No Cold of Flu in the past 2 weeks, No New Medical Problems, No Changes in Medication and No Patient answered all questions The History & Physical has been completed within 30 days and I have reviewed it.: Yes Section B Chief Complaint: Local infection due to central venous catheter, Allergies: Allergies Allergy/AdvReac Type Severity Reaction Status Date / Time No Known Allergies Allergy Verified 07/18/23 10:14 [No Known Allergies*] Plan I have reviewed the history and physical and performed a pertinent physical examination on my patient. No changes have occurred unless specified. Time Spent With Patient Time: Total time managing care of this patient today ____ minutes.
--- NOTE | 2023-07-18 17:34 | P.OP_ITS ---
Operative Note Operative Note Date of Service: 07/18/23 Narrative: Preoperative diagnosis: [] Skin breakdown over right IJ port Postop diagnosis: [] Same Procedure [] 1. left internal jugular vein Port-A-Cath placement with Doppler ultrasound guidance and fluoroscopy 2. Removal right chest port, superficial skin and soft tissue debridement Surgeon: [] Rodolfo Pest Control Service Representative: [] Betty Type of Anesthesia: [] General/LMA Indication for surgery: [] Patient is cachectic , frail man being treated with chemotherapy for advanced lung cancer. He developed skin site breakdown over his right chest port. Findings: [] Patient brought to the operating room, placed on operative table supine position, after adequate level of LMA anesthesia was induced, the patient's left and right bilateral chest and neck areas were prepped and draped in usual sterile fashion. Commencing with the left neck, using Doppler ultrasound guidance, the left internal jugular vein was identified and cannulated using Seldinger technique. A wire was advanced to the level of the superior vena cava under fluoroscopic guidance. A pocket was fashioned several cm on the chest wall below the cannulation site using scalpel and Bovie and tunneled to the wire. The catheter was placed to the subcutaneous tunnel, after being connected to the port, and the port secured to the pocket using 3-0 Vicryl sutures. Dilating sheath was then placed over the wire again under fluoroscopic guidance and a wire retrieved. Pre hep flush catheter was advanced level of the superior vena cava under fluoroscopic guidance. Peel-away sheath was removed without incident. Antegrade and retrograde flow recently established. Wounds were infiltrated with 0.5% Marcaine at completion. Wounds were irrigated, secured hemostasis, and closed using interrupted inverted dermal 3-0 Vicryl sutures followed by Steri-Strips and sterile dressings. Next the right chest was approached where the visible port was uneventfully removed. Skin margins were debrided , irrigated, secured hemostasis, and closed in the following manner; interrupted inverted widely spaced 3-0 Vicryl sutures followed by vertical mattress widely spaced 2-0 nylon sutures were placed. Sterile dressings were applied. Wound was infiltrated 0.5% Marcaine at completion. Postprocedure chest x-ray in the OR was within normal limits and permanent chest x-ray in recovery room is pending. Sponge, needle, instrument counts reported correct. Patient tolerated procedure well and emerged anesthesia in stable condition. EBL minimal
[2023-07-18 17:38] VITALS: BP 148/85; PULSE 55; RESP 16; TEMP 36.1; O2SAT 97
[2023-07-18 17:43] VITALS: BP 177/65; PULSE 52; RESP 16; O2SAT 100
[2023-07-18 17:47] VITALS: BP 176/52; PULSE 51; RESP 16; O2SAT 100
[2023-07-18] MEDS: Acetaminophen 1,000 MG/100 ML PIGGYBACK 400 MG IV (17:48)
[2023-07-18 17:53] VITALS: BP 170/80; PULSE 50; RESP 16; O2SAT 100
[2023-07-18 18:07] VITALS: BP 166/85; PULSE 47; RESP 16; TEMP 36.1; O2SAT 100
== END 2023-07-18 18:21 | disposition home or self-care (01) ==
PROVIDERS: Visit Provider Surgery
PROC: (CPT 36590; principal; 2023-07-18 13:30)
DX: T80.212A Local infection due to central venous catheter, initial encounter (principal); L76.82 Other postprocedural complications of skin and subcutaneous tissue; Y82.8 Other medical devices associated with adverse incidents; Z45.2 Encounter for adjustment and management of vascular access device; C34.90 Malignant neoplasm of unspecified part of unspecified bronchus or lung; Z87.891 Personal history of nicotine dependence; R54 Age-related physical debility; R13.10 Dysphagia, unspecified; E03.9 Hypothyroidism, unspecified; H05.20 Unspecified exophthalmos; Z79.899 Other long term (current) drug therapy
CPT/HCPCS: 36561; 36590; 71045; C1788; J0131; J0690; J1100; J1643; J2405; J3010

== ENCOUNTER → 2023-07-18 11:44 | Outpatient (BNV) | payer MEDICARE, SELFPAY | PROVIDERS: Visit Provider Surgery | DX: Z45.2 Encounter for adjustment and management of vascular access device (principal) | CPT/HCPCS: 36561; 36590; 76937; 77001 ==

== ENCOUNTER 2023-07-31 10:11 | Outpatient (AMB) | payer MEDICARE, MEDICAID, SELFPAY ==
[2023-07-31 10:17] VITALS: BP 156/66; PULSE 53
--- NOTE | 2023-07-31 10:17 | A.OFFVIS_ITS ---
Intake Vital Signs 07/31/23 10:17 Weight 128 lb BP 156/66 H Blood Pressure Location Lt brachial Position Sitting Pulse 53 Intake Visit Reasons: SR of old port site Intake Note: Patient here s/o port site. Reports old scar healing well but still operator batch or continuous to touch. States new port site on rt chest doing well. 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 He is undergoing chemotherapy. Left chest port is working well. He has no wound issues or complaints. [facility] Medical History Maintenance chemotherapy following disease Dysphagia Smoker Graves' orbitopathy Hypothyroidism Surgical History History of bronchoscopy History of esophagogastroduodenoscopy (EGD) Hx of colonoscopy Lung cancer Hx of cataract surgery Family History Father Diabetes mellitus Mother Alzheimer disease Social History Household Members: None Housing: Apartment Are you a primary customer care associate to a significant other at home: No Do you presently have visiting nurse or other home services: No Alcohol intake: current Alcohol intake frequency: does not drink Patient Tobacco Use Status: Former Tobacco user Quit Date: quit 1 month ago Tobacco use type: Cigarette Substance Use Type: Club/Rehabilitation Medicine Physician Drugs and Marijuana service: No Current occupational status: disabled Physical Exam Vital Signs: Last Vital Signs Pulse 53 07/31/23 10:17 BP 156/66 H 07/31/23 10:17 Chest Other: Left chest port site clean dry and intact. Old right port site healing uneventfully. Sutures removed without incident. Dressing applied. Assessment & Plan Assessment & Plan (1) Encounter for insertion of tunneled central venous catheter (CVC) with port: Code(s): Z45.2 - Encounter for adjustment and management of vascular access device Plan Patient and son have been given local instructions, and will follow-up p.r.n.. Coding Level of Care Code Global (10811) Diagnoses Encounter for insertion of tunneled central venous catheter (CVC) with port Z45.2
== END 2023-07-31 10:46 | disposition home or self-care (01) ==
PROVIDERS: Visit Provider Surgery
DX: Z45.2 Encounter for adjustment and management of vascular access device (principal)
CPT/HCPCS: 99024

== ENCOUNTER → 2023-07-31 10:11 | Outpatient (BNVA) | payer MEDICARE, SELFPAY | PROVIDERS: Visit Provider Surgery ==

== ENCOUNTER 2023-08-30 09:24 | Outpatient (AMB) | payer OTHER, SELFPAY ==
[2023-08-30 09:44] VITALS: BP 163/72; PULSE 49; O2SAT 95; BMI 23.9
--- NOTE | 2023-08-30 09:44 | MHC.OFFVIS ---
Intake Vital Signs 08/30/23 09:44 Height 5 ft 2 in Weight 130 lb 15.273 oz BMI 23.9 BP 163/72 H Blood Pressure Location Lt brachial Position Sitting Pulse 49 L Pulse Source Pulse Oximeter Pulse Oximetry (%) 95 Oxygen Delivery Method Room Air Intake Visit Reasons: port site check, pt, ? open wound Intake Note: Pt presents to the office today for a port site check/questioning open wound. Pt states his port was removed about 2 months ago which healed but since then has opened and has yellow discharge coming from the open wound. Pt states it isnt painful and denies any fever or chills. Allergies No Known Allergies [No Known Allergies*] Allergy (Verified 08/30/23 09:50) Medication List - Last Reconciled 08/30/23 by Minh Naik MD buprenorphine-naloxone 8-2 mg 20 mg sublingual DAILY dexamethasone 4 mg PO BID divalproex ER 500 mg PO DAILY furosemide (Lasix) 20 mg PO DAILY hydrochlorothiazide 12.5 mg PO DAILY hydrocortisone 2.5% 1 appl topical TID PRN hydroxyzine HCl 25 mg PO TID PRN hydroxyzine HCl 25 mg PO QID lactulose (Constulose) 10 grams (15 mL) PO BEDTIME levothyroxine 50 mcg PO DAILY levothyroxine 200 mcg PO DAILY Magic Mouthwash Diphen/Nystat/Antacid 1:1:1 5 mL PO TID olanzapine 1 tab PO BEDTIME ondansetron 8 mg PO Q8H PRN primidone 250 mg PO BID propranolol ER 160 mg PO DAILY sennosides-docusate sodium 8.6-50 mg (Senna-S) 1 tab-cap PO BEDTIME simvastatin 20 mg PO BEDTIME tramadol 50 mg PO Q8H PRN HPI port site check, pt, ? open wound HPI Details He is here because of skin separation on previous port site on the right chest wall. He had this port removed last July [address] Reynolds because of an infection and a new port was placed on the left chest . He is currently being treated for lung cancer. He had been doing well with regards to this but the skin was noted to separate about 3 days ago. There was note of some code yellow was discharged on code from the wound so he was referred to the office. He denies any fever or chills. [facility] Medical History (Updated 08/30/23 @ 10:06 by Minh Naik MD) Wound dehiscence, surgical Maintenance chemotherapy following disease Dysphagia Smoker Graves' orbitopathy Hypothyroidism Surgical History History of bronchoscopy History of esophagogastroduodenoscopy (EGD) Hx of colonoscopy Lung cancer Hx of cataract surgery Family History Father Diabetes mellitus Mother Alzheimer disease Social History Household Members: None Housing: Apartment Are you a primary child care worker to a significant other at home: No Do you presently have visiting nurse or other home services: No Alcohol intake: current Alcohol intake frequency: does not drink Patient Tobacco Use Status: Former Tobacco user Quit Date: quit 1 month ago Tobacco use type: Cigarette Substance Use Type: Club/Manager Utilization Management Drugs and Marijuana service: No Current occupational status: disabled Review of Systems Const Denies chills and Denies fever(s) Card Denies chest pain at rest GI Denies abdominal pain Denies difficulty urinating Physical Exam Vital Signs: Last Vital Signs Pulse 49 L 08/30/23 09:44 BP 163/72 H 08/30/23 09:44 Pulse Ox 95 08/30/23 09:44 Oxygen Delivery Method Room Air 08/30/23 09:44 BMI result Body Mass Index 23.9 Const Other: Very frail looking, on wheelchair General: comfortable and no acute distress Chest Other: skin separation on of previous port site on the right chest, with some fibrinous exudates but otherwise no pus, good granulation noted on the subcutaneous layer, no induration Resp Effort & Inspection: normal respiratory effort Cardio Rate: regular rate GI Palpation (GI): Soft to palpation Assessment & Plan Assessment & Plan (1) Wound dehiscence, surgical: Code(s): T81.31XA - Disruption of external operation (surgical) wound, not elsewhere classified, initial encounter Plan: He has skin dehiscence on the previous port site on the right chest. This is otherwise clean. There was note of fibrinous exudate but there is no obvious infection. There was good granulation tissue I bluntly debrided this wound surface with gauze. I changes dressings. I told him that he may see Dr. Reynolds for another wound check next week. Coding Level of Care Code Est Pt Level 2 (91253) Diagnoses Wound dehiscence, surgical T81.31XA
== END 2023-08-30 10:03 | disposition home or self-care (01) ==
PROVIDERS: Visit Provider Surgery
DX: T81.31XA Disruption of external operation (surgical) wound, not elsewhere classified, initial encounter (principal)
CPT/HCPCS: 99212

== ENCOUNTER → 2023-08-30 09:24 | Outpatient (BNVA) | payer MEDICARE, MEDICAID, SELFPAY | PROVIDERS: Visit Provider Surgery | DX: C34.90 Malignant neoplasm of unspecified part of unspecified bronchus or lung (principal); T81.31XA Disruption of external operation (surgical) wound, not elsewhere classified, initial encounter | CPT/HCPCS: 99212 ==

== ENCOUNTER 2023-09-04 09:51 | Outpatient (AMB) | payer MEDICARE, SELFPAY ==
--- NOTE | 2023-09-04 09:59 | MHC.OFFVIS ---
Intake Intake Visit Reasons: port site check Allergies No Known Allergies [No Known Allergies*] Allergy (Verified 08/30/23 09:50) HPI HPI Comments History of Present Illness Details Patient presents with a son. He is currently on chemotherapy. There was concern about his former port site healing appropriately. [facility] Medical History (Updated 08/30/23 @ 10:06 by Minh Naik MD) Wound dehiscence, surgical Maintenance chemotherapy following disease Dysphagia Smoker Graves' orbitopathy Hypothyroidism Surgical History History of bronchoscopy History of esophagogastroduodenoscopy (EGD) Hx of colonoscopy Lung cancer Hx of cataract surgery Family History Father Diabetes mellitus Mother Alzheimer disease Social History Household Members: None Housing: Apartment Are you a primary administrator health care facility to a significant other at home: No Do you presently have visiting nurse or other home services: No Alcohol intake: current Alcohol intake frequency: does not drink Patient Tobacco Use Status: Former Tobacco user Quit Date: quit 1 month ago Tobacco use type: Cigarette 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 Right old port site is granulating over and has a dry eschar. No evidence of any infection. Assessment & Plan Assessment & Plan (1) Encounter for care related to Port-a-Cath: Code(s): Z45.2 - Encounter for adjustment and management of vascular access device Plan Patient and son have been given local instructions, and will follow-up p.r.n.. Coding Level of Care Code Global (01064) Diagnoses Encounter for care related to Port-a-Cath Z45.2
== END 2023-09-04 10:02 | disposition home or self-care (01) ==
PROVIDERS: Visit Provider Surgery
DX: Z45.2 Encounter for adjustment and management of vascular access device (principal)
CPT/HCPCS: 99024

== ENCOUNTER → 2023-09-04 09:51 | Outpatient (BNVA) | payer SELFPAY | PROVIDERS: Visit Provider Surgery ==

== ENCOUNTER 2023-09-12 11:56 | Outpatient (AMB) | payer MEDICARE, SELFPAY ==
--- NOTE | 2023-09-12 11:59 | A.OFFVIS_ITS ---
Intake Vital Signs 09/12/23 12:04 Height 5 ft 2 in Weight 126 lb BMI 23.0 BP 109/57 L Blood Pressure Location Lt brachial Position Sitting Pulse 60 Intake Visit Reasons: Pre colonoscopy Intake Note: Patient follow up for 3rd pre colonoscopy screening consult. Patient cc: diarrhea on and off. Denies any other GI issues. Clinical Documentation Clerk Required: No Accompanied by: Son Allergies No Known Allergies [No Known Allergies*] Allergy (Verified 09/12/23 11:58) HPI HPI Comments History of Present Illness Details A 67 y/o male undergoing chemotherapy every 3 weeks for lung cancer referred for screening colonoscopy Patient is here with his son, very supportive Patient tells me he is too weak to undergo screening colonoscopy at this time follow therapy is been bit difficult for him. Not having any trouble with his bowels, appetite is fair Review of records 01/04 [facility] Medical History Wound dehiscence, surgical Maintenance chemotherapy following disease Dysphagia Smoker Graves' orbitopathy Hypothyroidism Surgical History History of bronchoscopy History of esophagogastroduodenoscopy (EGD) Hx of colonoscopy Lung cancer Hx of cataract surgery Family History Father Diabetes mellitus Mother Alzheimer disease Social History Household Members: None Housing: Apartment Are you a primary family day care provider to a significant other at home: No Do you presently have visiting nurse or other home services: No Alcohol intake: current Alcohol intake frequency: does not drink Patient Tobacco Use Status: Former Tobacco user Quit Date: quit 1 month ago Tobacco use type: Cigarette 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 Drugs and Marijuana service: No Current occupational status: disabled Review of Systems Const Denies chills, Denies fever(s), Reports lethargy and Reports weakness Card Denies chest pain Neuro Reports weakness Physical Exam Vital Signs: Last Vital Signs Pulse 60 09/12/23 12:04 BP 109/57 L 09/12/23 12:04 BMI result Body Mass Index 23.0 Const General: comfortable, no acute distress, ill appearing and intoxicated appearing Nutritional Appearance: cachectic Orientation/consciousness: patient oriented x3 Limitations: physical limitations and ambulation with cane Resp Effort & Inspection: able to speak in complete sentences Auscultation: clear to auscultation bilaterally and no wheezes Cardio Rate: regular rate Rhythm: regular rhythm Heart sounds: S1 normal heart sound present and S2 normal heart sound present GI Palpation (GI): Soft to palpation and nontender Auscultation: normal bowel sounds Skin General skin exam: no rashes or lesions noted Neuro General: patient oriented x3 Psych Appearance: well kempt Speech and movement: Clear speech present Affect: Sad affect present Thought content: Normal thought content present Results Reviewed Results Reviewed: Name: Kyrie Cheek Age/Sex: 66/M Attending: Montrell Ac MD : 1955 Submitted by: Montrell Ac MD Copies to: Anastasiya Gimenez MD MR #: [id number] Status: [facility] Collected: 06/09/22 Location: [facility] Received: 06/10/22 Diagnosis A. Terminal ileum, biopsy: Small intestinal mucosa within normal limits. B. Colon, random, biopsy: Focally active colitis. C. Colon, ascending, polypectomy: Colonic mucosa with mild surface hyperplastic changes; multiple additional levels examined. D. Duodenum, biopsy: Chronic inactive duodenitis. E. Stomach, biopsy: Antral-type and oxyntic mucosa with moderate chronic, focally active, inactive inflammation, mild atrophy and intestinal metaplasia; negative for dysplasia; no Helicobacter organisms seen. Clinical History Pre-Op Dx: Dysphagia Post-Op Dx: Hemorrhoids, diverticulosis Microscopic Description A-E. Microscopic sections reviewed. Immunostain for H. pylori is non-reactive (E). Material Received A: Bx terminal ileum B: Bx random colon C: Polyp ascending colon D: Bx duodenum E: Bx stomach Gross Description Received in five parts. Part A: Received in formalin labeled Bx terminal ileum are two glistening, semitranslucent, soft, hyperemic, peck-pink, irregular tissue fragments, measuring 0.2 and 0.3 cm. in greatest dimension, which are submitted in toto in a single cassette labeled A. Part B: Received in formalin labeled Bx random colon are seven glistening, semitranslucent, soft, hyperemic and congested, peck and peck-pink, irregular tissue fragments, ranging from 0.1 to 0.3 cm. in greatest dimension, which are submitted in toto in a single cassette labeled B. Patient: Kyrie Cheek Age/Sex: 66/M MR#: [id number] Page 1 of 2 Endoscopy Findings: tight LES, ?paraneoplastic achalasia gastritis Colonoscopy Findings: polyps internal hemorrhoids diverticular disease Plan: Await Pathology results Repeat Colonoscopy in 5-7 years if clinically indicated given his current struggles with lung cancer High fiber diet leaflet avoid straining at stool, epsom salts and sitz bath, anusol supps or cream if swallowing not improved can do timed ba swallow, and if LES not improving, then botox can be tried. eferral Complete Aug 14 Subject Gastroenterology Referral From Rasheeda Larry Provider Rafael Reynolds To Rasheeda Larry Ordering Location [facility] – [place] General Surgeons Ordering Provider Rafael Reynolds Start Date 07/31/23 Frequency Routine Print Transition of Care ? Use Direct Address No Direct Address [email or web address] Refer To [facility] – [place] G[facility]ology Services ? [address] [place] [address] ? [phone] Diagnosis Code Z12.11 - Encounter for screening for malignant neoplasm of colon Comments to Provider Recall colonoscopy last one done at [facility] Assessment & Plan Assessment & Plan (1) Lung cancer: Comment: Annia myers- [phone]- call after disc plan with T- Not having any GI issues no documents-referring to indication for colonoscopy EGD colonoscopy 05/[address] Ac Code(s): C34.90 - Malignant neoplasm of unspecified part of unspecified bronchus or lung Plan Discussed with Dr. Ac Patient Instructions: Uncertain as to indication for repeating colonoscopy will discuss with Dr. Ac Patient and his son are agreeable with the plan Coding Level of Care Code Est Pt Level 3 (21649) Diagnoses Lung cancer C34.90 Time Spent (min) 30 Comment Son present
[2023-09-12 12:04] VITALS: BP 109/57; PULSE 60; BMI 23.0
== END 2023-09-12 12:34 | disposition home or self-care (01) ==
PROVIDERS: Visit Provider Physician Assistant
DX: C34.90 Malignant neoplasm of unspecified part of unspecified bronchus or lung (principal)
CPT/HCPCS: 99213

== ENCOUNTER → 2023-09-12 11:56 | Outpatient (BNVA) | payer MEDICARE, SELFPAY | PROVIDERS: Visit Provider Physician Assistant | DX: C34.90 Malignant neoplasm of unspecified part of unspecified bronchus or lung (principal) | CPT/HCPCS: 99212 ==

== ENCOUNTER 2023-10-03 11:37 | Outpatient (REF) | payer MEDICARE, SELFPAY ==
--- NOTE | ~2023-10-03 | MR_ITS ---
EXAMINATION: MR BRAIN WITH AND WITHOUT CONTRAST CLINICAL INFORMATION: Follow-up brain metastases COMPARISON: MRI brain 01/12/2023 and PET/CT 06/06/2023 TECHNIQUE: MRI of the brain was obtained using routine sequences before and following administration of intravenous contrast. A total of 5.5 mL of Gadavist was administered intravenously. FINDINGS: Interval favorable treatment response. Previously seen 9 mm enhancing lesion in the right superior vermis is no longer visualized, now with 2 mm thin linear enhancement in this region likely reflecting treatment related change spanning 2 mm. Resolved previously seen surrounding T2 FLAIR hyperintensity and regional mass effect. No other new enhancing intracranial lesions. No acute infarct. The GRE sequence is without susceptibility artifact to suggest acute or chronic blood products. No extra-axial fluid collection. Stable mild volume loss. Stable nonspecific supratentorial white matter disease. The intracranial dural venous sinus and arterial flow voids are preserved. Normal appearance of the midline structures. Lens extractions. Leftward nasal septal deviation with bony spur impinging upon the left inferior nasal turbinates, encroaching upon the left lateral nasal cavity wall, and contacting the undersurface of the left middle nasal turbinate. Increased diffuse mucosal hyperenhancement of the paranasal sinuses sparing the sphenoid sinuses. Newly opacified left with redemonstrated opacified right frontal sinuses, increased opacification of the ethmoid air cells, and redemonstrated completely opacified left and subtotally opacified right maxillary sinuses. T1 hyperintense and T2 hypointense signal throughout the opacified sinuses presumably reflect chronic inspissated contents versus chronic fungal elements. Mild mucosal thickening within the right mastoid air cells. Normal marrow signal. MR/MR head/brain wo/w con IMPRESSION: 1. Interval favorable treatment response with resolved previously seen enhancing lesion in the right superior vermis, now with 2 mm thin linear enhancement, presumably post treatment related change. Resolved surrounding T2 FLAIR signal and regional mass effect. No evidence of progressive disease. 2. Worsening extensive sinus disease opacification sparing the sphenoid sinuses as above that can be correlated clinically for acute sinusitis.
[2023-10-03] MEDS: gadobutroL 7.5 ML VIAL IVPUSH (12:22)
== END 2023-10-03 11:38 | disposition home or self-care (01) ==
LOC: HO.MRI 11:37
PROVIDERS: Visit Provider Internal Medicine
DX: C34.90 Malignant neoplasm of unspecified part of unspecified bronchus or lung (principal)
CPT/HCPCS: 70553; A9585

== ENCOUNTER 2023-11-07 08:30 | Outpatient (REF) | payer OTHER, SELFPAY ==
--- NOTE | ~2023-11-07 | PE_ITS ---
EXAMINATION: Fluorine-18 FDG PET/CT Scan CLINICAL INDICATION: Subsequent treatment management. Malignant neoplasm of right lung, restaging. PROCEDURE: Approximately 65 minutes following the intravenous administration of 13.3 mCi of fluorine 18 FDG, images from the base of the skull to the mid thighs were obtained using a combined PET/CT scanner with CT scan based attenuation correction. No intravenous contrast was administered. Transverse, coronal, sagittal, and volume reconstruction projections were obtained. The patient's blood glucose as determined by a finger stick, was 57 mg/dl immediately prior to injection. The radiotracer was injected intravenously through the left antecubital superficial vein, without any complications. Total CT exam dose-length product 405.87 mGy-cm * These CT images were obtained using dose optimization techniques as appropriate, variously including the following: Automated exposure control * Adjustment of mA and/or kV according to patient size (this includes techniques or standardized protocols for targeted exams where dose is matched to indication/reason for exam; i.e. extremities or head) * Use of iterative reconstruction technique COMPARISON: Most recent prior PET CT study done on 06/06/2023 and the baseline study done on 05/03/2022. FINDINGS: SUV max REFERENCE: Blood: 1.6 (current). 1.4 (06/06/2023). 2.4 (baseline-05/03/2022). Liver: 2.0 (current). 1.99 (06/06/2023). 2.14 (baseline-05/03/2022). HEAD AND NECK: No abnormal radiotracer uptake. Incidental note is made of bilateral mucoperiosteal thickening of maxillary sinuses, similar to most recent prior study dated 06/06/2023. No large intracranial hemorrhage, acute territorial infarct or significant shift of midline structures. CHEST: Ports and Devices: Left-sided Port-A-Cath is present with its tip seen at the cavoatrial junction. Lungs: Interval development of dense airspace consolidation associated with mild tracer avidity is seen at the right lower and to a lesser extent right middle lobe, consistent with likely compressive atelectatic changes secondary to large sided new pleural effusion. Pleura: Interval development of large minimally tracer avid (SUV max of 1.2) right-sided pleural effusion. Lymph Nodes: Previously documented subcentimeter mild tracer avid right paratracheal lymph node with SUV max of 3.2 shows interval increase in tracer avidity, currently shows SUV max of 5.7 (59/223), consistent with interval disease progression. The baseline SUV max was 11.4. Mediastinum: There is no significant pericardial effusion/thickening. Breasts/Chest Wall: No abnormal radiotracer uptake. ABDOMEN/PELVIS: Liver/Biliary System: No focal tracer-avid liver lesion. The gallbladder appears unremarkable. Pancreas: Normal. Spleen: No abnormal radiotracer uptake. No evidence of splenomegaly. Adrenal Glands: Previously documented clinically known right adrenal nodule shows interval increase in tracer avidity, currently shows SUV max of 4.0 (103/223), previously 3.2 and on the baseline study measured 5.3. The finding is consistent with interval disease progression since 06/06/2023. Kidneys: No hydronephrosis, hydroureter or renal calculi bilaterally. Bowel: There is no significant bowel dilatation to suggest obstruction. Focal increased tracer avidity is noted within the mid transverse colon at mid abdomen associated with nonspecific circumferential thickening, may represent mild focal colitis/diverticulitis or combination thereof. Lymph Nodes: No tracer avid retroperitoneal, mesenteric or pelvic and/or groin lymphadenopathy. Pelvic Organs: The urinary bladder is underdistended. MUSCULOSKELETAL: Mild tracer avidity overlying the right greater trochanter is most consistent with trochanteric bursitis or soft tissue inflammation. No suspicious tracer avid osseous disease, unchanged. VASCULAR: Calcific atherosclerotic disease including coronary artery calcifications, unchanged. No evidence of aneurysm. THE SITE(S) OF MOST INTENSE FDG AVIDITY AND SUVmax: Increasing FDG avid right paratracheal lymph node with SUV max of 5.7. PET/PET CT fusion skull to thigh IMPRESSION: 1. Interval increase in tracer avidity at the right paratracheal lymph node and right adrenal gland consistent with interval disease progression since the most recent prior study dated 06/06/2023. 2. Interval development of large mild tracer avid right-sided pleural effusion and presumed compressive atelectatic changes involving the right lower and right middle lobes. 3. Mild tracer avidity overlying the right greater trochanter most consistent with trochanteric bursitis/soft tissue inflammation. 4. Mild focal tracer avidity within the mid part of the transverse colon associated with mild colonic thickening likely represent mild nonspecific colitis/diverticulitis. 5. No other significant interval change.
== END 2023-11-07 08:31 | disposition home or self-care (01) ==
LOC: HO.PET 08:30
PROVIDERS: Visit Provider Internal Medicine
DX: Z13.89 Encounter for screening for other disorder (principal)

== ENCOUNTER 2023-12-15 13:19 | Emergency (ER) | payer OTHER, SELFPAY ==
--- NOTE | ~2023-12-15 | XR_ITS ---
EXAMINATION: XR CHEST CLINICAL INFORMATION: Shortness of breath, right lung carcinoma COMPARISON: Chest x-ray on 07/18/2023 TECHNIQUE: 2 views of the chest were obtained. EXAMINATION: Portable CHEST x-ray. FINDINGS: vascularity. LUNGS: Large right pleural effusion and right lower lung opacification, effacing right cardiac border, right hemidiaphragm and right lateral costophrenic angle are seen. Extensive hazy alveolar infiltrates with air bronchograms are seen filling most of the left lung, sparing the peripheral and basal left lung field. No pneumothorax is seen. Left brachiocephalic central line is seen ending at expected location of superior vena cava. XR/XR chest 2V IMPRESSION: 1. Interval development of Large right pleural effusion and right lower lung opacification. 2. Interval development of Extensive hazy alveolar infiltrates with air bronchograms are seen filling most of the left lung, sparing the peripheral and basal left lung field, compatible with pneumonia or asymmetric left-sided pulmonary edema. 3. No interval change in position of left brachiocephalic Port-A-Cath.
--- NOTE | ~2023-12-15 | US_ITS ---
EXAMINATION: US CHEST CLINICAL INFORMATION: Right pleural effusion. COMPARISON: Chest x-ray 12/15/2023 at 2:17 PM TECHNIQUE: Limited ultrasound imaging to the right posterior chest was performed. FINDINGS: There is moderate to large right pleural effusion with right lower lobe atelectasis. The effusion appears clear without any echogenic debris. No septations seen. US/US chest IMPRESSION: Simple right moderate to large pleural effusion.
[2023-12-15 13:35] VITALS: BP 137/58; PULSE 61; RESP 16; TEMP 37.2; O2SAT 94; BMI 23.2
--- NOTE | 2023-12-15 13:35 | ED_ITS ---
HPI - General Adult General Chief complaint: Dyspnea Stated complaint: difficulty breathing, low O2 Time Seen by Provider: 12/15/23 16:09 History of Present Illness HPI narrative: The patient is a 68-year-old male with a history of lung cancer who was being treated here for his lung cancer. Lives at home with his son. He has had worsening shortness of breath on exertion for the last 4 or 5 days. He has also had headache. Today he was feeling quite bad because of his shortness of breath in his headache. His son felt that his oxygen saturations with exertion were in the 80s. The family called the oncology office and they were advised to come to the emergency room. No fevers. No significant cough. No abdominal pain. No nausea or vomiting. The patient has frequent headaches. He usually uses acetaminophen and/or tramadol Related Data Home Medications Medication Instructions Recorded Confirmed buprenorphine 8 mg-naloxone 2 mg 20 mg sublingual DAILY 01/08/21 09/28/23 sublingual film divalproex 500 mg tablet,extended 500 mg PO DAILY 01/08/21 09/28/23 release 24 hr hydrochlorothiazide 12.5 mg capsule 12.5 mg PO DAILY 01/08/21 09/28/23 hydroxyzine HCl 25 mg tablet 25 mg PO QID 01/08/21 09/04/23 primidone 250 mg tablet 250 mg PO BID 01/08/21 09/28/23 propranolol 160 mg capsule,24 160 mg PO DAILY 01/08/21 09/28/23 hr,extended release olanzapine 15 mg tablet 1 tab PO BEDTIME 04/04/22 09/28/23 simvastatin 20 mg tablet 20 mg PO BEDTIME 06/05/23 09/28/23 Previous Rx's Medication Instructions Recorded tramadol 50 mg tablet 50 mg PO Q8H PRN Pain #30 tabs 05/19/22 levothyroxine 50 mcg tablet 50 mcg PO DAILY #30 tabs 07/07/22 levothyroxine 200 mcg tablet 200 mcg PO DAILY #90 tabs 08/15/22 dexamethasone 4 mg tablet 4 mg PO BID #30 tabs 01/11/23 ondansetron 8 mg disintegrating 8 mg PO Q8H PRN Nausea #60 tabs 03/17/23 tablet sennosides 8.6 mg-docusate sodium 1 tab-cap PO BEDTIME #30 tabs 05/19/23 50 mg tablet (Senna-S) Magic Mouthwash 5 ml PO TID #240 mL 11/01/23 Diphen/Nystat/Antacid 1:1:1 240 mL suspension hydrocortisone 1 % topical cream 1 appl topical QID #400 grams 11/07/23 (Anti-Itch (hydrocortisone)) cephalexin 500 mg capsule 500 mg PO Q8H #30 caps 11/09/23 furosemide 20 mg tablet (Lasix) 20 mg PO DAILY #30 tabs 11/30/23 albuterol sulfate 90 mcg/actuation 2 puff inhalation Q4-6H PRN 12/15/23 aerosol inhaler shortness of breath or wheezing #8.5 grams furosemide 20 mg tablet 40 mg (2 x 20 mg) PO DAILY 30 days 12/15/23 #60 tabs Allergies Allergy/AdvReac Type Severity Reaction Status Date / Time No Known Allergies Allergy Verified 09/12/23 11:58 [No Known Allergies*] Review of Systems 2 Review of Systems: Yes all other systems are reviewed and are negative PMFSH Past Medical History Medical History Wound dehiscence, surgical Maintenance chemotherapy following disease Dysphagia Smoker Graves' orbitopathy Hypothyroidism Surgical History History of bronchoscopy History of esophagogastroduodenoscopy (EGD) Hx of colonoscopy Lung cancer Hx of cataract surgery Family History Family History Father Diabetes mellitus Mother Alzheimer disease Social History Social History Household Members: None Housing: Apartment Are you a primary nonfarm animal caretaker to a significant other at home: No Do you presently have visiting nurse or other home services: No Alcohol intake: current Alcohol intake frequency: does not drink Patient Tobacco Use Status: Former Tobacco user Quit Date: quit 1 month ago Tobacco use type: Cigarette Smoked in Last 30 Days: No Use of substances other than those prescribed or required for medical reasons: No 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 He is awake and alert. No obvious increased work of breathing. At rest his oxygen saturations were 95% on room air. HENMT Other: Face is symmetrical. Tongue is midline. Mucous membranes moist. Eyes Other: Pupils are round equal, conjunctivae clear, extraocular movements intact Neck Other: No JVD Resp Other: No increased work of breathing. Diminished breath sounds at the right base. Slight crackles. Cardio Rate: regular rate Rhythm: regular rhythm Heart sounds: S1 normal heart sound present and S2 normal heart sound present Skin Other: The lower legs show very chronically dry skin. Skin is otherwise unremarkable. Neuro Other: The patient is awake and alert. He seems quite frail. No obvious cranial nerve deficits. Moves extremities symmetrically. No focal neurological deficit. Extrem Other: The patient has chronic peripheral edema with very dry skin. No asymmetry. No tenderness. Course Course Course Narrative: RME- 68-year-old male past medical history significant for lung cancer presents for evaluation of shortness of breath. He is followed by Dr. Lewis. His symptoms started yesterday. He is reportedly been hypoxic to 88% at home. He is 94% on room air in triage. Medications Administered Discontinued Medications Generic Name Dose Route Start Last Admin Trade Name Freq PRN Reason Stop Dose Admin Acetaminophen 975 mg 12/15/23 17:12 12/15/23 18:14 Acetaminophen 325 Mg Tablet PO 12/15/23 17:13 975 mg ONCE ONE Administration Albuterol Sulfate 2 puff 12/15/23 19:55 12/15/23 20:07 Albuterol Sulfate 90 Mcg 8 Gm Inhaler INHALE 12/15/23 19:56 2 puff ONCE ONE Administration Albuterol/Ipratropium 3 ml 12/15/23 19:37 12/15/23 19:46 Albuterol/Iprat 2.5/0.5mg 3 Ml Ampul.Neb INHALE 12/15/23 19:38 3 ml ONCE ONE Administration Heparin Sodium (Porcine) 500 0 unit 12/15/23 20:37 12/15/23 20:41 unit/ Sodium Chloride 5 ml IVFLUSH 12/15/23 20:38 500 unit ONCE ONE Administration Furosemide 40 mg 12/15/23 17:12 12/15/23 18:14 Furosemide 40 Mg/4 Ml Vial IVPUSH 12/15/23 17:13 40 mg ONCE ONE Administration Protocol Tramadol HCl 50 mg 12/15/23 17:12 12/15/23 18:14 Tramadol Hcl 50 Mg Tablet PO 12/15/23 17:13 50 mg ONCE ONE Administration Medical Decision Making Medical Decision Making [facility] Narrative: The patient is a 68-year-old male currently receiving lung cancer treatment. He had a PET scan 1 month ago at the end of October that showed disease progression in his right paratracheal lymph node in the right adrenal gland as well as development of right-sided pleural effusion. According to the family they were told that the head scan findings indicated the patient would need a change in treatment but this has not yet been established. The patient has developed worsening dyspnea on exertion for the last 4 5 days. There has been a mild occasional cough. No fever, sweats, chills. The patient also gets fairly frequent headaches and he was having more headaches over the last few days. The family called the oncology office regarding these symptoms and the patient was advised to come to the emergency room. Here the patient looks quite chronically ill but not toxic. His oxygen saturation on room air is 95%. His temperature at triage was 99.0. I took his temperature at the bedside it was 98.7. His heart rate is in the 60s. He is on propranolol. Chest x-ray shows a right-sided pleural effusion. There is also new increased interstitial markings in the left lung field described as ?interval development of extensive hazy alveolar infiltrates with air bronchograms seen filling most of the left lung sparing peripheral and basal left lung field compatible with pneumonia or asymmetric left-sided pulmonary edema. The right-sided pleural effusion is likely fairly chronic as the PET scan on November 07 showed a significant right-sided pleural effusion. The new findings in the left lung may be the primary cause of his worsening dyspnea on exertion although the pleural effusion may certainly contribute as well. Clinically I do not have a significantly high suspicion for any infectious process. He denies having any fevers at home and he has not febrile here. He describes only a mild cough. No sweats or chills. Given the findings of some interstitial edema on the left lung the patient was given 40 mg of IV furosemide (he typically takes 20 mg daily). He had a good diuretic response. Was also given a DuoNeb updraft and instructed in the use of an albuterol inhaler. With regard to the patient's right pleural effusion Interventional Radiology was not available for thoracentesis and there will be no available Interventional Radiology over the weekend. The pleural effusion was present on his PET scan at over a month ago. I am therefore not convinced the pleural effusion is the cause of his dyspnea. I think that his symptoms can probably be managed with an increase of his diuretics and the introduction of an albuterol inhaler (he has a significant smoking history but has never been prescribed albuterol in the past). The patient is not eager to have a thoracentesis. The patient will therefore be discharged with the son with an increase of his furosemide to 40 mg daily and the albuterol inhaler. My hope is that this will improve his respiratory status well enough so that he can contact his oncologist Dr. Lewis on Monday for further management. An outpatient thoracentesis may be appropriate. He should return to the emergency room if worse. Lab Data 12/15/23 13:44 12/15/23 13:44 Labs: Lab Results 12/15/23 12/15/23 Range/Units 13:44 17:32 WBC 7.3 (4.8-10.8) X10*3/uL RBC 4.31 L (4.60-5.80) X10*6/uL Hgb 11.1 L (14.0-18.0) g/dl Hct 35.9 L (42.0-52.0) % MCV 83.3 (80.0-98.0) fL MCH 25.8 L (27.0-33.0) pg MCHC 30.9 L (31.0-36.0) g/dl RDW 20.0 H (11.0-16.0) % Plt Count 366 D (160-400) X10*3/uL MPV 8.7 L (9.4-12.4) fL Immature Gran % (Auto) 1.5 H (0.0-0.4) % Neut % (Auto) 61.0 (45-73) % Lymph % (Auto) 19.5 L (20-40) % [place] % (Auto) 12.6 H (2-11) % Eos % (Auto) 4.9 H (0-4) % Baso % (Auto) 0.5 (0-2) % Lymph # (Auto) 1.4 (1.2-4.9) X10*3/uL [place] # (Auto) 0.9 (0.1-1.2) X10*3/uL Eos # (Auto) 0.4 (0.0-0.4) X10*3/uL Baso # (Auto) 0.0 (0.0-0.2) X10*3/uL Abs Immat Gran (auto) 0.11 H (0.00-0.03) X10*3/uL Absolute Neuts (auto) 4.5 (2.0-8.3) x10*3/uL Absolute Nucleated RBC 0.000 (0.0-0.012) X10*3/uL Nucleated RBC % (auto) 0.0 (0.0-0.2) /100WBC PT 13.6 H (11.1-13.3) SEC INR 1.1 (0.9-1.1) Sodium 141 (135-145) mmol/L Potassium 4.2 (3.3-5.1) mmol/L Chloride 100 (96-108) mmol/L Carbon Dioxide 32 H (22-29) mmol/L Anion Gap 13 (12-20) BUN 21 H (9-16) mg/dL Creatinine 0.82 (0.5-1.4) mg/dL Estim Creat Clear Calc 68.4 Estimated GFR > 60 Random Glucose 123 H (60-115) mg/dL Lactic Acid 1.4 (0.5-2.0) mmol/L Calcium 9.6 D (8.4-10.2) mg/dL Total Bilirubin 0.2 (0.0-1.0) mg/dL AST 29 (5-37) U/L ALT 42 H (0-40) U/L Alkaline Phosphatase 112 (39-117) U/L C-Reactive Protein 23.29 H (< or = 0.50) mg/dL B-Natriuretic Peptide 91 (<100) pg/mL Total Protein 7.5 (6.5-8.0) g/dL Albumin 3.5 (3.5-5.0) g/dL Lipase 13 (8-78) U/L Procalcitonin 0.06 ng/mL Influenza Type A (PCR) NEGATIVE (Negative) Influenza Type B (PCR) NEGATIVE (Negative) RSV RNA Qual (PCR) NEGATIVE (Negative) SARS-CoV-2 RNA (RT-PCR) NEGATIVE (Negative) Independent Interpretation I performed an independent interpretation of an: EKG Interpretation: EKG at 1726 shows normal sinus rhythm at 64 beats per minute. Unremarkable EKG. Discharge Plan Discharge Clinical Impression: Dyspnea on exertion, Lung cancer, Interstitial edema, Pleural effusion, right Patient Disposition: Home, Self-Care Additional Instructions: Your chest x-ray shows some increased fluid in your left lung. It also shows that on the right side of your lung there is some fluid outside the lung. This is called a pleural effusion. You are being prescribed additional furosemide (also known as Lasix) to try to improve the fluid within your left lung. My hope is this will help your sense of shortness of breath when you are moving around. Therefore your dose of furosemide will be increased so that you take 2 tablets in the morning instead of 1 tablet. Additional tablets have been sent to your pharmacy. Please also use the albuterol inhaler 2 puffs every 4 hours as needed for shortness of breath. Use the inhaler with the AeroChamber (spacer) My hope is that this will help your breathing over the weekend and that you can talk to your oncologist on Monday for additional steps. Your oncologist may arrange a procedure to remove the fluid outside your right lung. The ultrasound today showed that the fluid outside of your right lung is clear and free- flowing. The procedure to remove fluid from outside the lung is called a thoracentesis. Please return to the emergency room if significantly worse before then. Prescriptions: New furosemide 20 mg tablet 40 mg PO DAILY 30 Days Qty: 60 0RF albuterol sulfate 90 mcg/actuation HFA aerosol inhaler 2 puff inhalation Q4-6H PRN (Reason: shortness of breath or wheezing) Qty: 8.5 0RF No Action levothyroxine 50 mcg tablet 50 mcg PO DAILY Qty: 30 5RF Rx Instructions: PLEASE TAKE 200MCG WITH 50MCG FOR TOTAL DOSE 250MCG. levothyroxine 200 mcg tablet 200 mcg PO DAILY Qty: 90 4RF ondansetron 8 mg Tablet,Disintegrating 8 mg PO Q8H PRN (Reason: Nausea) Qty: 60 1RF Magic Mouthwash Diphen/Nystat/Antacid 1:1:1 240 mL Suspension 5 ml PO TID Qty: 240 1RF Rx Instructions: nystatin 100,000 unit/mL oral suspension 80 mL; diphenhydramine 12.5 mg/5 mL oral liquid 80 mL; aluminum-mag hydroxide-simethicone 400 mg-400 mg-40 mg/5 mL oral susp 80 mL; Per 240 mL olanzapine 15 mg tablet 1 tab PO BEDTIME tramadol 50 mg Tablet 50 mg PO Q8H PRN (Reason: Pain) Qty: 30 0RF dexamethasone 4 mg Tablet 4 mg PO BID Qty: 30 3RF Rx Instructions: Take night before chemotherapy and for 2 days after chemotherapy sennosides-docusate sodium [Senna-S] 8.6-50 mg Tablet 1 tab-cap PO BEDTIME Qty: 30 2RF hydrocortisone [Anti-Itch (HC)] 1 % Cream 1 appl TOPICAL QID Qty: 400 3RF cephalexin 500 mg Capsule 500 mg PO Q8H Qty: 30 2RF furosemide [Lasix] 20 mg Tablet 20 mg PO DAILY Qty: 30 1RF hydrochlorothiazide 12.5 mg capsule 12.5 mg PO DAILY divalproex 500 mg tablet extended release 24 hr 500 mg PO DAILY primidone 250 mg tablet 250 mg PO BID propranolol 160 mg capsule,extended release 24 hr 160 mg PO DAILY hydroxyzine HCl 25 mg tablet 25 mg PO QID buprenorphine-naloxone 8-2 mg film 20 mg sublingual DAILY simvastatin 20 mg tablet 20 mg PO BEDTIME Referrals: Bre Lewis MD [Physician] - (Dyspnea on exertion, right-sided pleural effusion) Interventions: ED Discharge Assessment Last Done: 12/15/23 20:51 Discharge Date/Time: 12/15/23 20:51
[2023-12-15 13:54] LABS: MANUAL DIFF FLAG NO
[2023-12-15 13:55] LABS: Basophils Percent Auto 0.5 % (0-2); Eosinophils Absolute Auto 0.4 X10*3/uL (0.0-0.4); Eosinophils Percent Auto 4.9 % (0-4); Hematocrit 35.9 % (42.0-52.0); Hemoglobin 11.1 g/dl (14.0-18.0); Imm Gran Abs Auto 0.11 X10*3/uL (0.00-0.03); Imm Gran Pct Auto 1.5 % (0.0-0.4); Lymphocytes Absolute Auto 1.4 X10*3/uL (1.2-4.9); Lymphocytes Percent Auto 19.5 % (20-40); Mean Corpuscular HGB Conc 30.9 g/dl (31.0-36.0); Mean Corpuscular Hemoglobin 25.8 pg (27.0-33.0); Mean Corpuscular Volume 83.3 fL (80.0-98.0); Mean Platelet Volume 8.7 fL (9.4-12.4); Monocytes Absolute Auto 0.9 X10*3/uL (0.1-1.2); Monocytes Percent Auto 12.6 % (2-11); Neutrophils Absolute Auto 4.5 x10*3/uL (2.0-8.3); Platelet Count 366 X10*3/uL (160-400); Red Blood Count 4.31 X10*6/uL (4.60-5.80); White Blood Count 7.3 X10*3/uL (4.8-10.8)
[2023-12-15 14:01] LABS: INTERNATIONAL NORM RATIO 1.1 (0.9-1.1); Prothrombin Time 13.6 SEC (11.1-13.3)
[2023-12-15 14:06] LABS: Lactic Acid 1.4 mmol/L (0.5-2.0)
[2023-12-15 14:11] LABS: Alanine Aminotransferase 42 U/L (0-40); Albumin Level 3.5 g/dL (3.5-5.0); Alkaline Phosphatase 112 U/L (39-117); Anion Gap 13 (12-20); Aspartate Amino Transferase 29 U/L (5-37); Bilirubin Total 0.2 mg/dL (0.0-1.0); Blood Urea Nitrogen 21 mg/dL (9-16); Calcium 9.6 mg/dL (8.4-10.2); Carbon Dioxide 32 mmol/L (22-29); Chloride 100 mmol/L (96-108); Creatinine Clr Calc Pharmacy 68.4; Estimated Glomerular Filt Rate > 60; Glucose Random 123 mg/dL (60-115); Lipase 13 U/L (8-78); Potassium 4.2 mmol/L (3.3-5.1); Sodium 141 mmol/L (135-145); Total Protein 7.5 g/dL (6.5-8.0)
[2023-12-15 14:16] LABS: B Type Natriuretic Peptide 91 pg/mL (<100)
[2023-12-15 16:08] VITALS: BP 160/74; PULSE 63; RESP 22; O2SAT 96
--- NOTE | 2023-12-15 17:18 | ECG_ITS ---
Test Reason : WEAKNESS Blood Pressure : / mmHG Vent. Rate : 064 BPM Atrial Rate : 064 BPM P-R Int : 152 ms QRS Dur : 088 ms QT Int : 390 ms P-R-T Axes : 044 -14 041 degrees QTc Int : 402 ms Normal sinus rhythm Normal ECG When compared with ECG of 09-AUG-2023 09:31, No significant change was found Referred By: Wong Lala Electronically Signed By:KENNY ZEPEDA
[2023-12-15 17:22] LABS: C Reactive Protein 23.29 mg/dL (< or = 0.50)
[2023-12-15] MEDS: Furosemide 40 MG/4 ML VIAL IVPUSH (18:14)
[2023-12-15] MEDS: Acetaminophen 325 MG TABLET 975 MG PO (18:14)
[2023-12-15] MEDS: traMADoL HCL 50 MG TABLET PO (18:14)
[2023-12-15 18:15] LABS: Procalcitonin 0.06 ng/mL
[2023-12-15 18:27] LABS: Influenza A PCR NEGATIVE (Negative); Influenza B PCR NEGATIVE (Negative); Resp Syncy Virus RNA Qual PCR NEGATIVE (Negative); SARS COV2 PCR INHOUSE NEGATIVE (Negative)
[2023-12-15 19:37] VITALS: BP 133/59; PULSE 60; RESP 12; TEMP 37.1; O2SAT 92
--- NOTE | 2023-12-15 19:45 | PC.NURSE ---
this rn assumed care of pt. pt resting in stretcher, no acute distress noted. pt noted to have bilateral wheezing. respiratory at bedside for treatment.
[2023-12-15] MEDS: Albuterol/Iprat 2.5/0.5MG 3 ML AMPUL.NEB INHALE (19:46)
[2023-12-15 19:49] VITALS: PULSE 62; RESP 16; O2SAT 92
[2023-12-15] MEDS: Albuterol Sulfate 90 MCG 8 GM INHALER 2 PUFF INHALE (20:07)
== END 2023-12-15 20:51 | disposition home or self-care (01) ==
PROVIDERS: Physician Assistant; Emergency Provider Emergency Medicine
DX: J90 Pleural effusion, not elsewhere classified (principal); J84.9 Interstitial pulmonary disease, unspecified; R06.00 Dyspnea, unspecified; C34.90 Malignant neoplasm of unspecified part of unspecified bronchus or lung; Z11.52 Encounter for screening for COVID-19; Z20.828 Contact with and (suspected) exposure to other viral communicable diseases
CPT/HCPCS: 0241U; 36415; 71046; 76604; 80053; 83605; 83690; 83880; 84145; 85025; 85610; 86140; 87040; 93005; 94640; 96374; 99284; 99285; J1642; J1940

== ENCOUNTER → 2023-12-15 17:18 | Outpatient (BNV) | payer OTHER, SELFPAY | PROVIDERS: Emergency Provider Emergency Medicine; Visit Provider Internal Medicine | DX: R06.02 Shortness of breath (principal); R53.1 Weakness | CPT/HCPCS: 93010 ==

== ENCOUNTER 2023-12-20 11:14 | Inpatient (IN) | payer OTHER, SELFPAY ==
--- NOTE | ~2023-12-20 | XR_ITS ---
EXAMINATION: XR CHEST CLINICAL INFORMATION: Status post right thoracentesis COMPARISON: 12/15/2023 TECHNIQUE: Frontal view of the chest was obtained. FINDINGS: Tunneled left internal jugular chest port with internal tip in superior vena cava. Heart partially obscured by increasing left increased markings. Patient has undergone right thoracentesis with decreasing right pleural effusion. No postprocedural pneumothorax identified. Degenerative changes present. XR/XR chest 1V IMPRESSION: Decreasing right pleural effusion status post thoracentesis. No postprocedural pneumothorax. Increasing left hemithorax markings, possibly pulmonary edema versus worsening pneumonia.
--- NOTE | ~2023-12-20 | XR_ITS ---
EXAMINATION: XR CHEST CLINICAL INFORMATION: Shortness of breath COMPARISON: 12/20/2023 TECHNIQUE: Frontal view of the chest was obtained. FINDINGS: There is a left chest wall medication port with tip of IJ catheter in region of junction of the SVC and right atrium. EKG wires overlie the chest. Lungs remain hypoinflated. Again noted is hazy, reticular opacity in the left lung. This remains similar in appearance compared to 12/20/2023. The right lateral costophrenic sulcus is blunted from a small pleural effusion. No pneumothorax. Cardiac silhouette is normal in size. No acute osseous abnormality. XR/XR chest 1V IMPRESSION: * The hazy, reticular opacity in the left lung requires clinical correlation, and this is not significantly changed compared to 12/20/2023. This could represent pneumonia if in the right clinical context. * Small right pleural effusion is present. This has increased compared to 12/20/2023 (but remains smaller compared to 12/15/2023).
--- NOTE | ~2023-12-20 | US_ITS ---
PROCEDURE: Ultrasound-guided right thoracentesis History: Right pleural effusion. Metastatic lung cancer Specimen: None Access: 5 Urdu Yueh catheter Medications: 10 mL 1% lidocaine TECHNIQUE/FINDINGS Appropriate preprocedural clinical history and imaging studies were reviewed. The patient was brought to the department and placed in the seated position. Ultrasound images of the right thorax were obtained to localize a moderate pleural effusion. Permanent ultrasound images were saved. Risks and benefits and possible complications were discussed with the patient and consent form was signed. An area of the patient's right back was prepped and draped in usual sterile fashion. 10 mL of 1% lidocaine was used to obtain local anesthesia of the skin and deeper tissues. A standard small bore needle was introduced to sample pleural fluid and demonstrate a safe access route. A 5 Urdu Yueh catheter was then used to access the pleural cavity. 450 ml of yellow fluid was removed passively. The catheter was then removed. A dressing was applied. A postprocedure chest x-ray will be performed and will be dictated separately. There were no immediate complications. The procedure was performed by Theo Barker PA-C and supervised by Dr. Paulson US/US thoracentesis Impression: Ultrasound-guided right thoracentesis
[2023-12-20 11:25] VITALS: BP 131/68; PULSE 61; RESP 14; TEMP 36.6; O2SAT 94; BMI 22.3
[2023-12-20 11:56] LABS: MANUAL DIFF FLAG NO
[2023-12-20 11:59] LABS: Basophils Percent Auto 0.4 % (0-2); Eosinophils Absolute Auto 0.2 X10*3/uL (0.0-0.4); Eosinophils Percent Auto 2.9 % (0-4); Hematocrit 31.2 % (42.0-52.0); Hemoglobin 9.7 g/dl (14.0-18.0); Imm Gran Abs Auto 0.14 X10*3/uL (0.00-0.03); Lymphocytes Absolute Auto 1.2 X10*3/uL (1.2-4.9); Lymphocytes Percent Auto 17.5 % (20-40); Mean Corpuscular HGB Conc 31.1 g/dl (31.0-36.0); Mean Corpuscular Hemoglobin 25.4 pg (27.0-33.0); Mean Corpuscular Volume 81.7 fL (80.0-98.0); Mean Platelet Volume 8.7 fL (9.4-12.4); Monocytes Absolute Auto 1.1 X10*3/uL (0.1-1.2); Monocytes Percent Auto 15.1 % (2-11); Neutrophils Absolute Auto 4.4 x10*3/uL (2.0-8.3); Neutrophils Percent Auto 62.1 % (45-73); Platelet Count 508 X10*3/uL (160-400); Red Blood Count 3.82 X10*6/uL (4.60-5.80); Red Cell Distribution Width 19.8 % (11.0-16.0)
[2023-12-20 12:09] LABS: INTERNATIONAL NORM RATIO 1.2 (0.9-1.1); Prothrombin Time 14.6 SEC (11.1-13.3)
[2023-12-20 12:12] LABS: Partial Thromboplastin Time 35.7 SEC (26.0-36.8)
[2023-12-20 12:14] LABS: Anion Gap 11 (12-20); Blood Urea Nitrogen 29 mg/dL (9-16); Calcium 9.1 mg/dL (8.4-10.2); Carbon Dioxide 29 mmol/L (22-29); Chloride 99 mmol/L (96-108); Creatinine Clr Calc Pharmacy 70.4; Estimated Glomerular Filt Rate > 60; Glucose Random 134 mg/dL (60-115); Potassium 3.6 mmol/L (3.3-5.1); Sodium 135 mmol/L (135-145)
--- NOTE | 2023-12-20 12:22 | ED.GENADULT ---
HPI - General Adult General Chief complaint: General Medical Stated complaint: Low oxygen Time Seen by Provider: 12/20/23 11:27 Source: patient Mode of arrival: ambulatory Limitations: no limitations History of Present Illness HPI narrative: Dr. Damon called to say that the patient needs to have his left chest dr Related Data Home Medications Medication Instructions Recorded Confirmed buprenorphine 8 mg-naloxone 2 mg 20 mg sublingual DAILY 01/08/21 09/28/23 sublingual film divalproex 500 mg tablet,extended 500 mg PO DAILY 01/08/21 09/28/23 release 24 hr hydrochlorothiazide 12.5 mg capsule 12.5 mg PO DAILY 01/08/21 09/28/23 hydroxyzine HCl 25 mg tablet 25 mg PO QID 01/08/21 09/04/23 primidone 250 mg tablet 250 mg PO BID 01/08/21 09/28/23 propranolol 160 mg capsule,24 160 mg PO DAILY 01/08/21 09/28/23 hr,extended release olanzapine 15 mg tablet 1 tab PO BEDTIME 04/04/22 09/28/23 simvastatin 20 mg tablet 20 mg PO BEDTIME 06/05/23 09/28/23 Previous Rx's Medication Instructions Recorded tramadol 50 mg tablet 50 mg PO Q8H PRN Pain #30 tabs 05/19/22 levothyroxine 50 mcg tablet 50 mcg PO DAILY #30 tabs 07/07/22 levothyroxine 200 mcg tablet 200 mcg PO DAILY #90 tabs 08/15/22 dexamethasone 4 mg tablet 4 mg PO BID #30 tabs 01/11/23 ondansetron 8 mg disintegrating 8 mg PO Q8H PRN Nausea #60 tabs 03/17/23 tablet sennosides 8.6 mg-docusate sodium 1 tab-cap PO BEDTIME #30 tabs 05/19/23 50 mg tablet (Senna-S) Magic Mouthwash 5 ml PO TID #240 mL 11/01/23 Diphen/Nystat/Antacid 1:1:1 240 mL suspension hydrocortisone 1 % topical cream 1 appl topical QID #400 grams 11/07/23 (Anti-Itch (hydrocortisone)) cephalexin 500 mg capsule 500 mg PO Q8H #30 caps 11/09/23 furosemide 20 mg tablet (Lasix) 20 mg PO DAILY #30 tabs 11/30/23 albuterol sulfate 90 mcg/actuation 2 puff inhalation Q4-6H PRN 12/15/23 aerosol inhaler shortness of breath or wheezing #8.5 grams furosemide 20 mg tablet 40 mg (2 x 20 mg) PO DAILY 30 days 12/15/23 #60 tabs Allergies Allergy/AdvReac Type Severity Reaction Status Date / Time No Known Allergies Allergy Verified 09/12/23 11:58 [No Known Allergies*] Review of Systems Review of Systems: Yes all other systems are reviewed and are negative Neurologic: Denies Sensory deficit (Neuro) [facility] Past Medical History Medical History Wound dehiscence, surgical Maintenance chemotherapy following disease Dysphagia Smoker Graves' orbitopathy Hypothyroidism Surgical History History of bronchoscopy History of esophagogastroduodenoscopy (EGD) Hx of colonoscopy Lung cancer Hx of cataract surgery Family History Family History Father Diabetes mellitus Mother Alzheimer disease Social History Social History Household Members: None Housing: Apartment Are you a primary manager critical care to a significant other at home: No Do you presently have visiting nurse or other home services: No Alcohol intake: current Alcohol intake frequency: does not drink Patient Tobacco Use Status: Former Tobacco user Quit Date: quit 1 month ago Tobacco use type: Cigarette Substance Use 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 Advance Directives: No Advance Directives Information Provided: Yes service: No Current occupational status: disabled Physical Exam ED Vital Signs: Vital Signs - 24 hr 12/20/23 11:25 12/20/23 14:29 Temperature 97.8 F 98.0 F Pulse Rate 61 57 Respiratory Rate 14 16 Blood Pressure 131/68 125/60 Pulse Oximetry 94 93 Oxygen Delivery Method Nasal Cannula Nasal Cannula Oxygen Flow Rate 3 BMI result Body Mass Index 22.3 Const Other: thin frail male Orientation/consciousness: oriented to person and patient oriented x3 Limitations: no limitations HENMT Head: Yes normal to inspection Ears: external ears normal General nose exam: Normal external nose present Mouth: Normal oral and palatal mucosa present and oropharynx normal Throat: Yes posterior oropharynx normal Eyes General: appearance normal, both eyes and all related structures Neck Neck: Yes normal visual inspection Chest Chest palpation & inspection: normal inspection of the chest Resp Other: decreased BS on right with dullness to percussion on right Cardio Jugular venous distension: no JVD Rate: regular rate Rhythm: regular rhythm Heart sounds: S1 normal heart sound present and S2 normal heart sound present GI Inspection: Yes normal to inspection Palpation (GI): Soft to palpation, nontender and No hepatosplenomegaly present Auscultation: normal bowel sounds General: Yes no CVA tenderness Back/Spine/Pelvis Back: no CVA tenderness Skin General skin exam: no rashes or lesions noted Neuro General: oriented to person and patient oriented x3 Cranial nerves: Yes CN's II-XII intact bilaterally Motor exam (neuro): 5/5 motor strength present throughout Sensory Exam: No Sensory deficit (Neuro) Extrem General: Yes normal to inspection Psych Appearance: grossly normal Course Reevaluation(s) Reevaluation #1: discussed with Dr. Damon, if patient has normal oxygen after drainage and no pneumonia patient can be discharged home Time: 13:46 Reevaluation #2: patient still hypoxic after drainage, left lung now looks like worsening infiltrate will culture and start abx Time: 15:17 Reevaluation #3: I spent 40 minutes of critical care, with interventions, assessments, speaking to patient, consultants, and family. Time: 15:17 Medications Administered Discontinued Medications Generic Name Dose Route Start Last Admin Trade Name Freq PRN Reason Stop Dose Admin Lidocaine HCl 5 ml 12/20/23 14:04 12/20/23 14:05 Lidocaine Hcl 1 % Mpf 5 Ml Vial SUBCUT 12/20/23 14:05 5 ml ONCE ONE Administration Medical Decision Making Differential Diagnosis Differential Diagnoses: The differential diagnosis associated with the presentation includes (lung cancer, malignant effusion, pneumonia were all considered) Admission/Observation Consideration of admission/observation: Escalation of care including admission/observation considered (upon arrival patient considered for admission) Consult Healthcare Provider Management of the patient was discussed with: Hospice Volunteer (Oncology: Dr. Damon) Lab Data 12/20/23 11:50 12/20/23 11:50 Labs: Lab Results 12/20/23 Range/Units 11:50 WBC 7.0 (4.8-10.8) X10*3/uL RBC 3.82 L (4.60-5.80) X10*6/uL Hgb 9.7 L (14.0-18.0) g/dl Hct 31.2 L (42.0-52.0) % MCV 81.7 (80.0-98.0) fL MCH 25.4 L (27.0-33.0) pg MCHC 31.1 (31.0-36.0) g/dl RDW 19.8 H (11.0-16.0) % Plt Count 508 H (160-400) X10*3/uL MPV 8.7 L (9.4-12.4) fL Immature Gran % (Auto) 2.0 H (0.0-0.4) % Neut % (Auto) 62.1 (45-73) % Lymph % (Auto) 17.5 L (20-40) % [place] % (Auto) 15.1 H (2-11) % Eos % (Auto) 2.9 (0-4) % Baso % (Auto) 0.4 (0-2) % Lymph # (Auto) 1.2 (1.2-4.9) X10*3/uL [place] # (Auto) 1.1 (0.1-1.2) X10*3/uL Eos # (Auto) 0.2 (0.0-0.4) X10*3/uL Baso # (Auto) 0.0 (0.0-0.2) X10*3/uL Abs Immat Gran (auto) 0.14 H (0.00-0.03) X10*3/uL Absolute Neuts (auto) 4.4 (2.0-8.3) x10*3/uL Absolute Nucleated RBC 0.000 (0.0-0.012) X10*3/uL Nucleated RBC % (auto) 0.0 (0.0-0.2) /100WBC PT 14.6 H (11.1-13.3) SEC INR 1.2 H (0.9-1.1) APTT 35.7 (26.0-36.8) SEC Hold Blue Top SEE NOTE Sodium 135 (135-145) mmol/L Potassium 3.6 (3.3-5.1) mmol/L Chloride 99 (96-108) mmol/L Carbon Dioxide 29 (22-29) mmol/L Anion Gap 11 L (12-20) BUN 29 H (9-16) mg/dL Creatinine 0.83 (0.5-1.4) mg/dL Estim Creat Clear Calc 70.4 Estimated GFR > 60 Random Glucose 134 H (60-115) mg/dL Calcium 9.1 (8.4-10.2) mg/dL Independent Interpretation I performed an independent interpretation of an: Plain X-Ray (improved right pleural effusion after drainage, worsening infiltrate on left) Radiology Impression Discussion of test interpretation with radiology: I have reviewed the radiologist's reading. External Record Review External record reviewed: Prior outpatient labs and Prior outpatient radiology Chronic Conditions Patient?s care impacted by: Cancer Discharge Plan Discharge Clinical Impression: Adenocarcinoma of lung, Pleural effusion, Pneumonia Patient Disposition: Admitted As Inpatient Prescriptions: No Action levothyroxine 50 mcg tablet 50 mcg PO DAILY Qty: 30 5RF Rx Instructions: PLEASE TAKE 200MCG WITH 50MCG FOR TOTAL DOSE 250MCG. levothyroxine 200 mcg tablet 200 mcg PO DAILY Qty: 90 4RF ondansetron 8 mg Tablet,Disintegrating 8 mg PO Q8H PRN (Reason: Nausea) Qty: 60 1RF Magic Mouthwash Diphen/Nystat/Antacid 1:1:1 240 mL Suspension 5 ml PO TID Qty: 240 1RF Rx Instructions: nystatin 100,000 unit/mL oral suspension 80 mL; diphenhydramine 12.5 mg/5 mL oral liquid 80 mL; aluminum-mag hydroxide-simethicone 400 mg-400 mg-40 mg/5 mL oral susp 80 mL; Per 240 mL olanzapine 15 mg tablet 1 tab PO BEDTIME tramadol 50 mg Tablet 50 mg PO Q8H PRN (Reason: Pain) Qty: 30 0RF dexamethasone 4 mg Tablet 4 mg PO BID Qty: 30 3RF Rx Instructions: Take night before chemotherapy and for 2 days after chemotherapy sennosides-docusate sodium [Senna-S] 8.6-50 mg Tablet 1 tab-cap PO BEDTIME Qty: 30 2RF hydrocortisone [Anti-Itch (HC)] 1 % Cream 1 appl TOPICAL QID Qty: 400 3RF cephalexin 500 mg Capsule 500 mg PO Q8H Qty: 30 2RF furosemide [Lasix] 20 mg Tablet 20 mg PO DAILY Qty: 30 1RF furosemide 20 mg tablet 40 mg PO DAILY 30 Days Qty: 60 0RF albuterol sulfate 90 mcg/actuation HFA aerosol inhaler 2 puff inhalation Q4-6H PRN (Reason: shortness of breath or wheezing) Qty: 8.5 0RF hydrochlorothiazide 12.5 mg capsule 12.5 mg PO DAILY divalproex 500 mg tablet extended release 24 hr 500 mg PO DAILY primidone 250 mg tablet 250 mg PO BID propranolol 160 mg capsule,extended release 24 hr 160 mg PO DAILY hydroxyzine HCl 25 mg tablet 25 mg PO QID buprenorphine-naloxone 8-2 mg film 20 mg sublingual DAILY simvastatin 20 mg tablet 20 mg PO BEDTIME
[2023-12-20] MEDS: Lidocaine HCl 1 % MPF 5 ML VIAL SUBCUT (14:05)
--- NOTE | 2023-12-20 14:27 | PC.NURSE ---
patient returned from IR 450ml removed from the right side, patient dressing is dry and intact.
[2023-12-20 14:29] VITALS: BP 125/60; PULSE 57; RESP 16; TEMP 36.7; O2SAT 93
--- NOTE | 2023-12-20 15:45 | PC.NURSE ---
patient removed from oxygen for trial, patient desat down to 88% not on oxygen at baseline, placed back on 2l NC
--- NOTE | 2023-12-20 16:06 | P.HPHOSP_ITS ---
History of Present Illness Date of Service: 12/20/23 Chief Complaint: Shortness of breath 68-year-old man with history of right lung adenocarcinoma seen by his oncologist today and sent to the ER due to shortness of breath. Patient and his son reported that he has been having shortness of breath over the last week, progressive and feeling of fatigue. He denied chest pain, nausea, vomiting, diarrhea, fever, chills, recent travel, recent illness. Patient underwent thoracentesis in the ER with 450 mL of yellow fluid removed, post pneumothorax x-ray showing possible pulmonary edema versus worsening pneumonia. Patient requiring 2 L of oxygen, labs within acceptable limits, noted transaminitis. He received a dose of Rocephin in the ER. He will be admitted for further management and treatment of acute hypoxic respiratory failure secondary to pleural effusion and postobstructive pneumonia. Review of Systems 2 Review of Systems: Denies any recent fever chills or decrease in appetite respiratory denies any shortness of breath or cough cardiovascular denies chest pain gastrointestinal denies any dysphagia abdominal pain nausea vomiting or diarrhea genitourinary denies any dysuria frequency or hematuria musculoskeletal denies any joint pain or swelling neuropsych denies any weakness or seizures all other systems reviewed are negative [facility] Medical History Wound dehiscence, surgical Maintenance chemotherapy following disease Dysphagia Smoker Graves' orbitopathy Hypothyroidism Family History Father Diabetes mellitus Mother Alzheimer disease Surgical History History of bronchoscopy History of esophagogastroduodenoscopy (EGD) Hx of colonoscopy Lung cancer Hx of cataract surgery Social History Household Members: None Housing: Apartment Are you a primary rn home care to a significant other at home: No Do you presently have visiting nurse or other home services: No Alcohol intake: current Alcohol intake frequency: does not drink Patient Tobacco Use Status: Former Tobacco user Quit Date: quit 1 month ago Tobacco use type: Cigarette 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 Advance Directives: No Advance Directives Information Provided: Yes service: No Current occupational status: disabled Meds Allergies Allergy/AdvReac Type Severity Reaction Status Date / Time No Known Allergies Allergy Verified 09/12/23 11:58 [No Known Allergies*] Active Medications: Current Medications Azithromycin 500 mg/ Sodium (Chloride) 250 mls @ 125 mls/hr IV ONCE ONE Stop: 12/20/23 17:13 Home Medications Medication Instructions Recorded Confirmed Last Taken Type buprenorphine 8 mg-naloxone 2 mg 3 film sublingual DAILY 01/08/21 09/28/23 07/18/23 History sublingual film divalproex 500 mg tablet,extended 1,000 mg PO BID 01/08/21 09/28/23 12/22/22 History release 24 hr hydrochlorothiazide 12.5 mg capsule 12.5 mg PO DAILY 01/08/21 09/28/23 06/09/23 History hydroxyzine HCl 25 mg tablet 25 - 50 mg PO BID PRN Anxiety 01/08/21 09/04/23 06/09/23 History primidone 250 mg tablet 250 mg PO BID 01/08/21 09/28/23 12/22/22 History propranolol 160 mg capsule,24 160 mg PO BID 01/08/21 09/28/23 07/18/23 History hr,extended release olanzapine 15 mg tablet 1 tab PO BEDTIME 04/04/22 09/28/23 Unknown History simvastatin 20 mg tablet 20 mg PO BEDTIME 06/05/23 09/28/23 Unknown History hydrocortisone 1 % topical cream 1 appl topical BID 12/20/23 Unknown History (Anti-Itch (hydrocortisone)) tramadol 50 mg tablet 50 mg PO BID Pain 12/20/23 Unknown History Physical Exam 2 Vital Signs and Narrative: Vital Signs: Last Vital Signs Temp 98.0 F 12/20/23 14:29 Pulse 57 12/20/23 14:29 Resp 16 12/20/23 14:29 BP 125/60 12/20/23 14:29 Pulse Ox 93 12/20/23 14:29 O2 Del Method Nasal Cannula 12/20/23 14:29 O2 Flow Rate 3 12/20/23 14:29 Oxygen Flow Rate 3 12/20/23 11:25 BMI result Body Mass Index 22.3 Appearing in no acute distress head is normocephalic atraumatic eyes pupils are PERRLA sclera is anicteric mouth throat mucous membranes are intact and moist neck is supple no lymphadenopathy, no JVD noted lung sounds are clear to auscultation heart regular rate rhythm, clear S1, S2 positive bowel sounds, abdomen is soft, nontender neuro patient is alert x3, no focal deficits Port-A-Cath left chest Results Labs 12/20/23 11:50 12/20/23 11:50 Labs: Laboratory Results - last 24 hr 12/20/23 11:50 MCV 81.7 MCH 25.4 L MCHC 31.1 RDW 19.8 H Plt Count 508 H MPV 8.7 L Immature Gran % (Auto) 2.0 H Neut % (Auto) 62.1 Lymph % (Auto) 17.5 L [place]abella % (Auto) 15.1 H Eos % (Auto) 2.9 Baso % (Auto) 0.4 Lymph # (Auto) 1.2 Isabella # (Auto) 1.1 Eos # (Auto) 0.2 Baso # (Auto) 0.0 Abs Immat Gran (auto) 0.14 H Absolute Neuts (auto) 4.4 Absolute Nucleated RBC 0.000 Nucleated RBC % (auto) 0.0 PT 14.6 H INR 1.2 H APTT 35.7 Hold Blue Top SEE NOTE Anion Gap 11 L Estim Creat Clear Calc 70.4 Estimated GFR > 60 Random Glucose 134 H Calcium 9.1 Imaging Radiologist's Impressions: Impressions Thoracentesis Ultrasound 12/20/23 14:00 Impression: Ultrasound-guided right thoracentesis Chest X-Ray 12/20/23 14:02 IMPRESSION: Decreasing right pleural effusion status post thoracentesis. No postprocedural pneumothorax. Increasing left hemithorax markings, possibly pulmonary edema versus worsening pneumonia. Assessment and Plan (1) Pneumonia: Status: Acute Plan 68 year old man admitted with sob and pleural effusion with hx of right lung adenocarcinoma under the care of [facility] Oncology Acute hypoxic respiratory failure secondary to Pleural effusion and secondary post obstructive pneumonia Status post thoracentesis today with removal of 450 mL of yellow fluid Will treat with Rocephin and azithromycin Supplemental oxygen as needed Cough suppressant as needed blood cx pending Transaminitis possibly related to chemotherapy tx trend Adenocarcinoma diagnosed 2021 Currently under going treatment with Dr. Lewis Hypothyroidism Continue levothyroxine Hyperlipidemia Continue statin Protein calorie malnutrition. BMI 22.3 Add ensure to diet DVT prophylaxis with Lovenox Full code Patient required least 48 hours of treatment for hypoxic respiratory failure secondary to pleural effusion and pneumonia requiring IV antibiotics and close monitoring of oxygenation, due to patient's history of adenocarcinoma this should not be done at a lesser acute setting due to risk for decompensation Quality Stroke Does the patient have a stroke diagnosis?: No VTE Prior VTE?: No VTE Risk Level:: Medical - moderate - high VTE Device Contraindication: Treatment Not Indicated VTE Drug Contraindication: N/A - Med Ordered
[2023-12-20] MEDS: cefTRIAXone sodium 1 GM in 0.9 % Sodium Chloride 50 ML IV (16:14)
[2023-12-20 16:15] VITALS: BP 136/69; PULSE 66; RESP 16; TEMP 36.3; O2SAT 96
[2023-12-20] MEDS: Azithromycin 500 MG in 0.9 % Sodium Chloride 250 ML 125 MG IV (16:44)
--- NOTE | 2023-12-20 17:08 | PHA.MEDREC ---
Pharmacy Consult ? Medication Reconciliation Pharmacy has completed the medication reconciliation. Patient and family confirm medications. Reports depakote 2 tablet at night only. Patient takes suboxone throughout the day instead of 3 films together Soheila Henriquez, PharmD
--- NOTE | 2023-12-20 19:27 | PC.NURSE ---
this rn assumed care of pt. pt sitting up in stretcher eating dinner at this time, no acute distress noted. pt on 2L nasal cannula sating 93-98%.
[2023-12-20 20:35] VITALS: BP 110/57; PULSE 61; RESP 16; TEMP 36.7; O2SAT 98
--- NOTE | 2023-12-20 20:55 | PC.NURSE ---
Addendum entered by Brenda Abernathy 12/20/23 21:42: pt not on cardiac bedside monitor at this time, leads placed, pt sinus breana 56-58. Original Note: pt assisted in repositioning in bed at this time, pt denies pain at this time.
[2023-12-20 20:57] LABS: Glucose, Whole Blood 125 mg/dL (60-115)
[2023-12-21] VITALS (9 sets, daily range): BP systolic 110–160; BP diastolic 47–101; PULSE 50–96; RESP 16–21; TEMP 36.1–37; O2SAT 91–97; BMI 22.1
[2023-12-21] MEDS: 0.9 % Sodium Chloride Flush 3 ML SYRINGE IVFLUSH ×3 (01:21→15:41)
--- NOTE | 2023-12-21 05:05 | PC.NURSE ---
Dr. Kim aware of pt BP, no new orders at this time.
[2023-12-21 05:22] LABS: MANUAL DIFF FLAG NO
[2023-12-21 05:25] LABS: Basophils Percent Auto 0.6 % (0-2); Eosinophils Absolute Auto 0.3 X10*3/uL (0.0-0.4); Eosinophils Percent Auto 3.8 % (0-4); Hematocrit 29.5 % (42.0-52.0); Hemoglobin 9.3 g/dl (14.0-18.0); Imm Gran Abs Auto 0.14 X10*3/uL (0.00-0.03); Lymphocytes Absolute Auto 1.6 X10*3/uL (1.2-4.9); Lymphocytes Percent Auto 22.3 % (20-40); Mean Corpuscular HGB Conc 31.5 g/dl (31.0-36.0); Mean Corpuscular Hemoglobin 25.5 pg (27.0-33.0); Mean Corpuscular Volume 80.8 fL (80.0-98.0); Mean Platelet Volume 8.6 fL (9.4-12.4); Monocytes Absolute Auto 1.1 X10*3/uL (0.1-1.2); Monocytes Percent Auto 15.8 % (2-11); Neutrophils Absolute Auto 3.9 x10*3/uL (2.0-8.3); Neutrophils Percent Auto 55.5 % (45-73); Platelet Count 501 X10*3/uL (160-400); Red Blood Count 3.65 X10*6/uL (4.60-5.80); Red Cell Distribution Width 19.5 % (11.0-16.0)
[2023-12-21 05:44] LABS: Alanine Aminotransferase 117 U/L (0-40); Albumin Level 2.9 g/dL (3.5-5.0); Alkaline Phosphatase 165 U/L (39-117); Anion Gap 12 (12-20); Aspartate Amino Transferase 82 U/L (5-37); Bilirubin Total 0.2 mg/dL (0.0-1.0); Blood Urea Nitrogen 21 mg/dL (9-16); Calcium 8.9 mg/dL (8.4-10.2); Carbon Dioxide 27 mmol/L (22-29); Chloride 100 mmol/L (96-108); Creatinine Clr Calc Pharmacy 87.2; Estimated Glomerular Filt Rate > 60; Glucose Random 97 mg/dL (60-115); Magnesium 1.8 mg/dL (1.6-2.6); Potassium 4.1 mmol/L (3.3-5.1); Sodium 135 mmol/L (135-145); Total Protein 6.5 g/dL (6.5-8.0)
--- NOTE | 2023-12-21 06:22 | PC.NURSE ---
pt ambulated to bathroom with steady gait, no acute distress noted.
--- NOTE | 2023-12-21 09:38 | MHC.CM.PN ---
Patient is unavailable; CM spoke with Son/Ketan at [phone] and addressed IMM with him (original will be mailed certified letter to Ketan and a copy will be placed on the chart). Patient lives in a house with his Son/SCREWHEAD POLISHER/Ketan and he uses a cane and a walker to assist with mobility. Home/resume said services is the goal and CM has initiated and will follow for dc planning (Son will transport to home). PCP is Dr. Anastasiya Gimenez.
--- NOTE | 2023-12-21 09:45 | MHC.CM.PN ---
Patient receives his Suboxone trough [facility] and the prescribing MD is Dr. Olson.
--- NOTE | 2023-12-21 10:13 | PM.HEMONCCN ---
Subjective - Subjective Chief complaint: Weakness Patient: known to practice within the last 3 years Consult date: 12/21/23 Primary Care Provider: Anastasiya Gimenez MD Medical Summary: Diagnosis: Right lung adenocarcinoma, moderately to poorly differentiated 03/2022 He presented with more than 30 lb weight loss, cough and shortness of breath to the emergency department. CT chest revealed right paratracheal mass measuring 3.1 x 2.6 x 3.8 cm. He has chronic hypothyroidism and proptosis of right eye. He had bronchoscopy and biopsy of right paratracheal mass on 04/14/2022 which revealed adenocarcinoma, moderate to poorly differentiated. Next generation sequencing showed negativity for EGFR, ALK, ROS1 and RET rearrangements. MET amplification not detected. PTEN gene deletion detected with polysomy 10. MSI stable HER2 2+ (equivocal), PDL1 22C3 TPS1%. Tumor mutational burden high, jimenes-TRK not expressed. PET-CT performed 05/03/2022 showed FDG avid right paratracheal, subcarinal masses with SUV 11.4-9.5. Right adrenal FDG avid 1.5 cm nodule met with SUV 5.3 highly suggestive of metastatic disease. Intense FDG avid 2 cm right-sided mesorectal solid mass with SUV 9.5. Metastatic lymph node versus exophytic primary neoplasm. Brain MRI showed 2 subcentimeter enhancing nodules in the right cerebellar vermis. Patient was having headaches. He was started on dexamethasone 2 mg p.o. b.i.d.. 04/21/2022. He started carboplatin/pemetrexed with pembrolizumab in the palliative setting from 05/10/2022. He completed 6 cycles of induction regimen. PET scan on 08/09/2022 showed partial metabolic response at previously documented FDG avid right paratracheal mass and subcarinal soft tissue mass. Partial response in right adrenal metastatic disease and complete metabolic response in 2 cm right-sided FDG avid mesorectal mass near large bowel. He was now on second-line chemotherapy with docetaxel 75 mg/m2 and ramucirumab 10mg/kg every 3 weeks started on 01/17/2023. Repeat PET-CT in May 2023 has shown excellent response to treatment. HPI - Consult Narrative Reason for consult: Pneumonia, on chemotherapy for lung cancer Narrative: Kyrie Cheek is a 68 year old male who was admitted because of pneumonia, underlying metastatic lung cancer for which he is on chemotherapy. He was referred to the emergency department from Oncology Department because of hypoxemia and a recent diagnosis of large right pleural effusion. Patient had pleural effusion drained in the emergency room and subsequently admitted because of pneumonia it he is receiving antibiotics and feeling a little better. He has some cough but no fever or chills. Blood cultures have been negative so far. Review of Systems - Neurologic Denies sensory deficit PMFSH Medical History: Medical History (Last Reviewed 12/22/23 @ 10:57 by Meenu Fournier PT) Dysphagia Graves' orbitopathy Hypothyroidism Maintenance chemotherapy following disease Smoker Wound dehiscence, surgical Family History: Family History (Last Reviewed 12/20/23 @ 12:57 by Shawn Monreal MD) Father Diabetes mellitus Mother Alzheimer disease Surgical History: Surgical History (Last Reviewed 12/22/23 @ 10:57 by Meenu Fournier, PT) History of bronchoscopy History of esophagogastroduodenoscopy (EGD) Hx of cataract surgery Hx of colonoscopy Lung cancer Social History: Social History (Last Reviewed 12/20/23 @ 12:57 by Shawn Monreal MD) Living Situation History: Household Members: Children Housing: House Are you a primary critical care transport nurse to a significant other at home: No Do you presently have visiting nurse or other home services: No Do you presently have visiting nurse or other home services comment: No VNA but son is [employer] Tobacco History: Patient Tobacco Use Status: Former Tobacco user Tobacco use type: Cigarette Smoke Quit Date: quit 1 month ago e-Cigarette/Vaping Use: Currently Using Second Hand Smoke Exposure: No Substance Use History: Substance Use Type: Marijuana Occupation Assessmet: service: No Current occupational status: disabled Home Medications and Allergies Current Medications: Current Medications Acetaminophen (Acetaminophen 325 Mg Tablet) 650 mg PO Q6H PRN PRN Reason: Pain, Mild (Pain Scale 1-3) Atorvastatin Calcium (Atorvastatin Calcium 10 Mg Tablet) 10 mg PO BEDTIME [facility] Buprenorphine/Naloxone (Buprenorphine/Naloxone 8/2 Mg Film) 1 film SUBLINGUAL TID [facility] Divalproex Sodium (Divalproex Sodium Er 500 Mg Tab.Er.24h) 1,000 mg PO BEDTIME [facility] Enoxaparin Sodium (Enoxaparin Sodium 40 Mg/0.4 Ml Syringe) 40 mg SUBCUT Q24H [facility] Last Admin: 12/20/23 19:02 Dose: Not Given Furosemide (Furosemide 40 Mg Tablet) 40 mg PO DAILY [facility]; Protocol Guaifenesin (Guaifenesin 100 Mg/5 Ml Liquid) 5 ml PO Q4H PRN PRN Reason: Cough Hydrochlorothiazide (Hydrochlorothiazide 12.5 Mg Tablet) 12.5 mg PO DAILY [facility]; Protocol Hydroxyzine HCl (Hydroxyzine Hcl 50 Mg Tablet) 50 mg PO DAILY@1800 [facility] Hydroxyzine HCl (Hydroxyzine Hcl 25 Mg Tablet) 25 mg PO DAILY PRN PRN Reason: Anxiety Ceftriaxone Sodium 1 gm/ (Sodium Chloride) 50 mls @ 100 mls/hr IV Q24H [facility] Azithromycin 500 mg/ Sodium (Chloride) 250 mls @ 125 mls/hr IV Q24H [facility] Levothyroxine Sodium (Levothyroxine Sodium 200 Mcg Tablet) 200 mcg PO DAILY@0600 [facility] Olanzapine (Olanzapine 7.5 Mg Tablet) 15 mg PO BEDTIME [facility] Primidone (Primidone 50 Mg Tablet) 250 mg PO BID [facility] Propranolol HCl (Propranolol Hcl La 80 Mg Cap.Sa.24h) 160 mg PO BID [facility]; Protocol Sodium Chloride (0.9 % Sodium Chloride Flush 3 Ml Syringe) 3 ml IVFLUSH QSHIFT [facility] Last Admin: 12/21/23 01:21 Dose: 3 ml Tramadol HCl (Tramadol Hcl 50 Mg Tablet) 50 mg PO BID [facility] Home Medications Medication Instructions Recorded Confirmed Type buprenorphine 8 mg-naloxone 2 mg 1 film sublingual TID 01/08/21 12/20/23 History sublingual film divalproex 500 mg tablet,extended 1,000 mg PO BEDTIME 01/08/21 12/20/23 History release 24 hr hydrochlorothiazide 12.5 mg capsule 12.5 mg PO DAILY 01/08/21 12/20/23 History hydroxyzine HCl 25 mg tablet 50 mg PO DAILY@1800 Anxiety 01/08/21 12/20/23 History primidone 250 mg tablet 250 mg PO BID 01/08/21 12/20/23 History propranolol 160 mg capsule,24 160 mg PO BID 01/08/21 12/20/23 History hr,extended release olanzapine 15 mg tablet 1 tab PO BEDTIME 04/04/22 12/20/23 History simvastatin 20 mg tablet 20 mg PO BEDTIME 06/05/23 12/20/23 History hydroxyzine HCl 25 mg tablet 25 mg PO DAILY PRN Anxiety 12/20/23 12/20/23 History tramadol 50 mg tablet 50 mg PO BID Pain 12/20/23 12/20/23 History Allergies Allergy/AdvReac Type Severity Reaction Status Date / Time No Known Allergies Allergy Verified 09/12/23 11:58 [No Known Allergies*] Physical Exam Vital signs: Vital Signs Temp 98.2 F 12/21/23 08:36 Pulse 96 12/21/23 08:36 Resp 19 12/21/23 08:36 BP 120/60 12/21/23 08:36 Pulse Ox 95 12/21/23 08:36 O2 Del Method Nasal Cannula 12/21/23 08:36 O2 Flow Rate 2 12/21/23 08:36 Intake & Output 12/20/23 12/21/23 12/21/23 18:59 06:59 18:59 Intake Total 50 / 300 250 / 300 Output Total 200 / 200 Balance 50 / 100 50 / 100 Urine Output (Average ml/kg/hr) 0.29 Intake: Intake, IV Amount 50 / 300 250 / 300 Azithromycin 500 mg In 0.9 % 250 / 250 Sodium Chloride 250 ml @ 125 mls/hr IV ONCE ONE Rx#: [id number] cefTRIAXone sodium 1 gm In 0.9 50 / 50 % Sodium Chloride 50 ml @ 100 mls/hr IV ONCE ONE Rx#: [id number] Output: Output, Urine Amount 200 / 200 Other: Number of Unmeasured Voids 1 Urine Urinal Weight 57 kg Weight 57 kg Hem/Onc Consult Result - Labs CBC & Chem 7: 12/21/23 05:16 12/21/23 05:16 Labs: Short CBC 12/20/23 12/21/23 Range/Units 11:50 05:16 WBC 7.0 7.0 (4.8-10.8) X10*3/uL Hgb 9.7 L 9.3 L (14.0-18.0) g/dl Hct 31.2 L 29.5 L (42.0-52.0) % Plt Count 508 H 501 H (160-400) X10*3/uL BMP 12/20/23 12/21/23 11:50 05:16 Sodium 135 135 Potassium 3.6 4.1 Chloride 99 100 Carbon Dioxide 29 27 BUN 29 H 21 H Creatinine 0.83 0.67 Calcium 9.1 8.9 Liver Function 12/21/23 Range/Units 05:16 Total Bilirubin 0.2 (0.0-1.0) mg/dL AST 82 H (5-37) U/L ALT 117 H (0-40) U/L Alkaline Phosphatase 165 H (39-117) U/L Albumin 2.9 L (3.5-5.0) g/dL Assessment and Plan Patient Active problem list reviewed?: Yes (1) Adenocarcinoma of lung Problem details: Chemo every 3 weeks Status: Acute Assessment and plan: 1. This is a 68-year-old man who has been diagnosed with metastatic lung adenocarcinoma. He had bronchoscopy and biopsy of right paratracheal mass on 04/14/2022 which revealed adenocarcinoma, moderate to poorly differentiated. Next generation sequencing showed negativity for EGFR, ALK, ROS1 and RET rearrangements. MET amplification not detected. PTEN gene deletion detected with polysomy 10. MSI stable HER2 2+ (equivocal), PDL1 22C3 TPS1%. Tumor mutational burden high, jimenes-TRK not expressed. He started carboplatin/pemetrexed with pembrolizumab in the palliative setting from 05/10/2022. He was now on second-line chemotherapy with docetaxel 75 mg/m2 and ramucirumab 10mg/kg every 3 weeks started on 01/17/2023. He developed right pleural effusion for which she underwent thoracentesis on 12/20/2023. He was supposed to start gemcitabine in the 3rd line setting this week but because of hypoxemia and pleural effusion he was referred to emergency department. Chest x-ray shows worsening pneumonia. He is on ceftriaxone. He is feeling better. I concur with current management. Thank you for the consult. - Time Spent With Patient Time Spent with Patient (in minutes): 15
[2023-12-21] MEDS: Primidone 50 MG TABLET 250 MG PO ×2 (10:52→20:22)
[2023-12-21] MEDS: Furosemide 40 MG TABLET PO (10:53)
[2023-12-21] MEDS: Buprenorphine/Naloxone 8/2 mg FILM 1 FILM SUBLINGUAL ×3 (10:53→20:23)
[2023-12-21] MEDS: hydroCHLOROthiazide 12.5 MG TABLET PO (10:53)
[2023-12-21] MEDS: Propranolol HCL LA 80 MG CAP.SA.24H 160 MG PO (10:54)
[2023-12-21] MEDS: traMADoL HCL 50 MG TABLET PO ×2 (10:55→20:21)
--- NOTE | 2023-12-21 12:16 | HO.PM.IMPN ---
Subjective Subjective Date of Service: 12/21/23 Interval History: seen and examined this morning follow up for pneumonia, pleural effusion still with sob, especially with movement Review of Systems Review of Systems: Yes all other systems are reviewed and are negative Constitutional Constitutional: Denies chills and Denies fever(s) Cardiovascular Cardiovascular: Denies chest pain, Denies palpitations and Reports dyspnea on exertion Respiratory Respiratory: Reports cough and Reports dyspnea on exertion Gastrointestinal Gastrointestinal: Denies abdominal pain Endocrine Endocrine: Denies palpitations Physical Exam Vital Signs: Vital Signs: Last Vital Signs Temp 98.4 F 12/21/23 10:55 Pulse 66 12/21/23 10:55 Resp 20 12/21/23 10:55 BP 160/70 H 12/21/23 10:55 Pulse Ox 94 12/21/23 10:55 O2 Del Method Nasal Cannula 12/21/23 10:55 O2 Flow Rate 2 12/21/23 10:55 Oxygen Flow Rate 3 12/20/23 11:25 BMI result Body Mass Index 22.1 Const: Other: thin chronically ill appearing General: cooperative, comfortable, alert and awake Orientation/consciousness: patient oriented x3 Resp: Other: diminished breath sounds right side; left side clear Effort & Inspection: normal respiratory effort, able to speak in complete sentences, no respiratory distress and no use of accessory muscles Cardio: Rate: regular rate GI: Inspection: No distended Palpation (GI): Soft to palpation and nontender Neuro: General: patient oriented x3, moves all extremities and CN's II-XI intact bilaterally Extrem: General: Yes no pedal edema Objective Data Active Medications Acetaminophen (Acetaminophen 325 Mg Tablet) 650 mg PO Q6H PRN PRN Reason: Pain, Mild (Pain Scale 1-3) Atorvastatin Calcium (Atorvastatin Calcium 10 Mg Tablet) 10 mg PO BEDTIME [facility] Buprenorphine/Naloxone (Buprenorphine/Naloxone 8/2 Mg Film) 1 film SUBLINGUAL TID [facility] Last Admin: 12/21/23 10:53 Dose: 1 film Documented By: JAMI Divalproex Sodium (Divalproex Sodium Er 500 Mg Tab.Er.24h) 1,000 mg PO BEDTIME [facility] Enoxaparin Sodium (Enoxaparin Sodium 40 Mg/0.4 Ml Syringe) 40 mg SUBCUT Q24H [facility] Last Admin: 12/20/23 19:02 Dose: Not Given Documented By: JUSTYN Non-Admin Reason: Patient Asleep Furosemide (Furosemide 40 Mg Tablet) 40 mg PO DAILY [facility]; Protocol Last Admin: 12/21/23 10:53 Dose: 40 mg Documented By: JAMI Guaifenesin (Guaifenesin 100 Mg/5 Ml Liquid) 5 ml PO Q4H PRN PRN Reason: Cough Hydrochlorothiazide (Hydrochlorothiazide 12.5 Mg Tablet) 12.5 mg PO DAILY [facility]; Protocol Last Admin: 12/21/23 10:53 Dose: 12.5 mg Documented By: JAMI Hydroxyzine HCl (Hydroxyzine Hcl 50 Mg Tablet) 50 mg PO DAILY@1800 [facility] Hydroxyzine HCl (Hydroxyzine Hcl 25 Mg Tablet) 25 mg PO DAILY PRN PRN Reason: Anxiety Ceftriaxone Sodium 1 gm/ (Sodium Chloride) 50 mls @ 100 mls/hr IV Q24H [facility] Azithromycin 500 mg/ Sodium (Chloride) 250 mls @ 125 mls/hr IV Q24H [facility] Levothyroxine Sodium (Levothyroxine Sodium 200 Mcg Tablet) 200 mcg PO DAILY@0600 [facility] Last Admin: 12/21/23 10:54 Dose: Not Given Documented By: JAMI Non-Admin Reason: Patient Refused Olanzapine (Olanzapine 7.5 Mg Tablet) 15 mg PO BEDTIME [facility] Primidone (Primidone 50 Mg Tablet) 250 mg PO BID [facility] Last Admin: 12/21/23 10:52 Dose: 250 mg Documented By: JAMI Propranolol HCl (Propranolol Hcl La 80 Mg Cap.Sa.24h) 160 mg PO BID [facility]; Protocol Last Admin: 12/21/23 10:54 Dose: 160 mg Documented By: JAMI Sodium Chloride (0.9 % Sodium Chloride Flush 3 Ml Syringe) 3 ml IVFLUSH QSHIFT [facility] Last Admin: 12/21/23 10:59 Dose: 3 ml Documented By: JAMI Tramadol HCl (Tramadol Hcl 50 Mg Tablet) 50 mg PO BID [facility] Last Admin: 12/21/23 10:55 Dose: 50 mg Documented By: JAMI Labs 12/21/23 05:16 12/21/23 05:16 Labs: Laboratory Results - last 24 hr 12/20/23 12/21/23 20:49 05:16 MCV 80.8 MCH 25.5 L MCHC 31.5 RDW 19.5 H Plt Count 501 H MPV 8.6 L Immature Gran % (Auto) 2.0 H Neut % (Auto) 55.5 Lymph % (Auto) 22.3 [place] % (Auto) 15.8 H Eos % (Auto) 3.8 Baso % (Auto) 0.6 Lymph # (Auto) 1.6 [place] # (Auto) 1.1 Eos # (Auto) 0.3 Baso # (Auto) 0.0 Abs Immat Gran (auto) 0.14 H Absolute Neuts (auto) 3.9 Absolute Nucleated RBC 0.000 Nucleated RBC % (auto) 0.0 Anion Gap 12 Estim Creat Clear Calc 87.2 Estimated GFR > 60 POC Glucose 125 H Random Glucose 97 Calcium 8.9 Magnesium 1.8 Total Bilirubin 0.2 AST 82 H ALT 117 H Alkaline Phosphatase 165 H Total Protein 6.5 Albumin 2.9 L Assessment and Plan (1) Pneumonia: Status: Acute (2) Pleural effusion: Status: Acute Plan This is a 68 year old man with hx of right lung adenocarcinoma under the care of [facility] who was sent from the office with sob found to have pneumonia and right pleural effusion s/p thoracentesis Acute hypoxic respiratory failure secondary to Pleural effusion and post obstructive pneumonia No sepsis Status post therapeutic thoracentesis / with removal of 450 mL of yellow fluid continue IV Rocephin and azithromycin, started 3/6 wean Supplemental oxygen as tolerated Cough suppressant as needed blood cx pending Transaminitis possibly related to chemotherapy tx trending down somewhat Metastatic lung Adenocarcinoma diagnosed 2021 Currently under going treatment with Dr. Lewis, last chemo 11/29 Hypothyroidism Continue levothyroxine Hyperlipidemia Continue statin HTN resume HCTZ, propranolol, Protein calorie malnutrition. BMI 22.3 Add ensure to diet mood continue home meds DVT prophylaxis with Lovenox Full code Patient required least 48 hours of treatment for hypoxic respiratory failure secondary to pleural effusion and pneumonia requiring IV antibiotics and close monitoring of oxygenation, due to patient's history of adenocarcinoma this should not be done at a lesser acute setting due to risk for decompensation Quality Stroke Does the patient have a stroke diagnosis?: No VTE Prior VTE?: No VTE Risk Level:: Medical - moderate - high VTE Device Contraindication: Treatment Not Indicated VTE Drug Contraindication: N/A - Med Ordered
--- NOTE | 2023-12-21 12:51 | MHC.CM.PN ---
CM assisted Patient with the completion of a HCP; he named his Son/Ketan as his Agent.
[2023-12-21 13:07] LABS: Procalcitonin 0.08 ng/mL
--- NOTE | 2023-12-21 14:16 | P.CDIM_ITS ---
PROVIDER RESPONSE TEXT: To clarify, the appropriate diagnosis supported by the clinical indicators: Mild QUERY TEXT: PHYSICIAN'S DOCUMENTATION REQUEST Date of Query: 12/21/2023 01:11 PM EST Patient Name: Kyrie Cheek Admit Date: 12/20/2023 Dear Tiesha Ceron, A review of the medical record indicates additional documentation may be needed. Please review below and update the documentation accordingly. Documentation in the Hospitalist Progress Note 12/21/23 includes the diagnosis of Protein calorie malnu trition. Add Ensure to diet Additional clinical indicators from the record include: HT 5'3 WT 56.7 kg BMI 22.1 If possible, please provide additional specificity regarding the severity of the malnutrition using t he above information: Mild Moderate Severe Other (explain) Clinically unable to determine (explain) Thank you, Layla Curry RN Use of terms such as suspected, likely, concern for, or probable (associated with a specific diagnosi s that is being evaluated, monitored, or treated as if it exists) are acceptable and can be coded in the inpatient se tting, when documented at the time of discharge. Please use your independent medical judgment in providing your response. THIS QUERY IS PART OF THE PERMANENT MEDICAL RECORD
[2023-12-21] MEDS: Acetaminophen 325 MG TABLET 650 MG PO (15:34)
[2023-12-21] MEDS: cefTRIAXone sodium 1 GM in 0.9 % Sodium Chloride 50 ML IV (15:40)
[2023-12-21] MEDS: hydrOXYzine HCL 50 MG TABLET PO (17:12)
[2023-12-21] MEDS: Azithromycin 500 MG in 0.9 % Sodium Chloride 250 ML 125 MG IV (17:16)
[2023-12-21] MEDS: OLANZapine 7.5 MG TABLET 15 MG PO (20:22)
[2023-12-21] MEDS: Divalproex Sodium ER 500 MG TAB.ER.24H 1000 MG PO (20:22)
[2023-12-21] MEDS: Atorvastatin Calcium 10 MG TABLET PO (20:22)
[2023-12-22] VITALS (7 sets, daily range): BP systolic 122–167; BP diastolic 59–78; PULSE 53–69; RESP 18; TEMP 36.5–36.8; O2SAT 88–95
[2023-12-22] MEDS: 0.9 % Sodium Chloride Flush 3 ML SYRINGE IVFLUSH ×3 (01:10→15:04)
[2023-12-22] MEDS: Levothyroxine Sodium 200 MCG TABLET PO (05:44)
[2023-12-22] MEDS: hydroCHLOROthiazide 12.5 MG TABLET PO (09:36)
[2023-12-22] MEDS: Buprenorphine/Naloxone 8/2 mg FILM 1 FILM SUBLINGUAL ×3 (09:36→19:59)
[2023-12-22] MEDS: traMADoL HCL 50 MG TABLET PO ×2 (09:36→19:59)
[2023-12-22] MEDS: Primidone 50 MG TABLET 250 MG PO ×2 (09:36→20:00)
[2023-12-22] MEDS: Furosemide 40 MG TABLET PO (09:36)
--- NOTE | 2023-12-22 10:16 | MHC.CM.PN ---
Per ROUNDS discussion, Patient is not yet medically cleared for dc (still weaning O2 and needs PT eval to assist with disposition). CM will follow.
--- NOTE | 2023-12-22 11:05 | MHC.CM.PN ---
PT is recommending home with services; a referral has been made to [facility]. CM will follow.
--- NOTE | 2023-12-22 14:42 | HO.PM.IMPN ---
Subjective Subjective Date of Service: 12/22/23 Interval History: seen and examined this morning follow up for pneumonia required straight cath x1 overnight - reports h/o difficulty urinating but has never seen urologist still with sob with ambuation but improving Review of Systems Review of Systems: Yes all other systems are reviewed and are negative Constitutional Constitutional: Denies chills and Denies fever(s) Cardiovascular Cardiovascular: Denies chest pain, Denies palpitations and Reports dyspnea on exertion Respiratory Respiratory: Reports cough and Reports dyspnea on exertion Endocrine Endocrine: Denies palpitations Physical Exam Vital Signs: Vital Signs: Last Vital Signs Temp 97.7 F 12/22/23 11:26 Pulse 58 12/22/23 11:26 Resp 18 12/22/23 11:26 BP 122/59 L 12/22/23 11:26 Pulse Ox 95 12/22/23 11:26 O2 Del Method Nasal Cannula 12/22/23 11:26 O2 Flow Rate 2 12/22/23 11:26 Oxygen Flow Rate 3 12/20/23 11:25 BMI result Body Mass Index 22.1 Const: Other: thin chronically ill appearing General: cooperative, comfortable, alert and awake Orientation/consciousness: patient oriented x3 Chest: Other: port in place Resp: Effort & Inspection: normal respiratory effort, able to speak in complete sentences, no respiratory distress and no use of accessory muscles Cardio: Rate: regular rate GI: Inspection: No distended Palpation (GI): Soft to palpation and nontender Neuro: General: patient oriented x3, moves all extremities and CN's II-XI intact bilaterally Extrem: General: Yes no pedal edema Objective Data Active Medications Acetaminophen (Acetaminophen 325 Mg Tablet) 650 mg PO Q6H PRN PRN Reason: Pain, Mild (Pain Scale 1-3) Last Admin: 12/21/23 15:34 Dose: 650 mg Documented By: JAMI Atorvastatin Calcium (Atorvastatin Calcium 10 Mg Tablet) 10 mg PO BEDTIME [facility] Last Admin: 12/21/23 20:22 Dose: 10 mg Documented By: ZEINA Buprenorphine/Naloxone (Buprenorphine/Naloxone 8/2 Mg Film) 1 film SUBLINGUAL TID [facility] Last Admin: 12/22/23 14:03 Dose: 1 film Documented By: SANTHOSH Divalproex Sodium (Divalproex Sodium Er 500 Mg Tab.Er.24h) 1,000 mg PO BEDTIME [facility] Last Admin: 12/21/23 20:22 Dose: 1,000 mg Documented By: ZEINA Enoxaparin Sodium (Enoxaparin Sodium 40 Mg/0.4 Ml Syringe) 40 mg SUBCUT Q24H [facility] Last Admin: 12/21/23 17:12 Dose: Not Given Documented By: JAMI Non-Admin Reason: Patient Refused Furosemide (Furosemide 40 Mg Tablet) 40 mg PO DAILY [facility]; Protocol Last Admin: 12/22/23 09:36 Dose: 40 mg Documented By: SANTHOSH Guaifenesin (Guaifenesin 100 Mg/5 Ml Liquid) 5 ml PO Q4H PRN PRN Reason: Cough Hydrochlorothiazide (Hydrochlorothiazide 12.5 Mg Tablet) 12.5 mg PO DAILY [facility]; Protocol Last Admin: 12/22/23 09:36 Dose: 12.5 mg Documented By: SANTHOSH Hydroxyzine HCl (Hydroxyzine Hcl 50 Mg Tablet) 50 mg PO DAILY@1800 [facility] Last Admin: 12/21/23 17:12 Dose: 50 mg Documented By: JAMI Hydroxyzine HCl (Hydroxyzine Hcl 25 Mg Tablet) 25 mg PO DAILY PRN PRN Reason: Anxiety Ceftriaxone Sodium 1 gm/ (Sodium Chloride) 50 mls @ 100 mls/hr IV Q24H [facility] Last Infusion: 12/21/23 16:29 Dose: Infused Documented By: JAMI Azithromycin 500 mg/ Sodium (Chloride) 250 mls @ 125 mls/hr IV Q24H [facility] Last Infusion: 12/21/23 19:47 Dose: Infused Documented By: ZEINA Levothyroxine Sodium (Levothyroxine Sodium 200 Mcg Tablet) 200 mcg PO DAILY@0600 [facility] Last Admin: 12/22/23 05:44 Dose: 200 mcg Documented By: ZEINA Olanzapine (Olanzapine 7.5 Mg Tablet) 15 mg PO BEDTIME [facility] Last Admin: 12/21/23 20:22 Dose: 15 mg Documented By: ZEINA Primidone (Primidone 50 Mg Tablet) 250 mg PO BID [facility] Last Admin: 12/22/23 09:36 Dose: 250 mg Documented By: SANTHOSH Propranolol HCl (Propranolol Hcl La 80 Mg Cap.Sa.24h) 80 mg PO DAILY [facility]; Protocol Sodium Chloride (0.9 % Sodium Chloride Flush 3 Ml Syringe) 3 ml IVFLUSH QSHIFT [facility] Last Admin: 12/22/23 07:46 Dose: 3 ml Documented By: SANTHOSH Sodium Chloride (Sodium Chloride 0.65 % Nasal 44 Ml Sprbtl) 1 spray NOSTRIL-B Q1H PRN PRN Reason: Dry Nasal Passages Tramadol HCl (Tramadol Hcl 50 Mg Tablet) 50 mg PO BID [facility] Last Admin: 12/22/23 09:36 Dose: 50 mg Documented By: SANTHOSH Labs 12/21/23 05:16 12/21/23 05:16 Microbiology Microbiology Results: Microbiology 12/20/23 15:57 Blood Culture - Preliminary Blood - Venous No growth after 24 hours. 12/20/23 15:57 Blood Culture - Preliminary Blood - Venous No growth after 24 hours. Assessment and Plan (1) Pneumonia: Status: Acute (2) Pleural effusion: Status: Acute Plan This is a 68 year old man with hx of right lung adenocarcinoma under the care of [facility] who was sent from the office with sob found to have pneumonia and right pleural effusion s/p thoracentesis Acute hypoxic respiratory failure secondary to Pleural effusion and post obstructive pneumonia No sepsis Status post therapeutic thoracentesis 12/19 with removal of 450 mL of yellow fluid continue IV Rocephin and azithromycin, started 12/19 wean Supplemental oxygen as tolerated, still on 2L [place] Cough suppressant as needed blood cx negative to date urinary retention not new but pt never seen by urologist will start flomox outpatient follow up recommended Transaminitis possibly related to chemotherapy tx trending down somewhat will repeat in AM Metastatic lung Adenocarcinoma diagnosed 2021 Currently under going treatment with Dr. Lewis, last chemo 11/29 Hypothyroidism Continue levothyroxine Hyperlipidemia Continue statin HTN resume HCTZ, propranolol, lasix pt on high dose long acting propranolol confirmed prescription. pt bradycardia, will decrease dose and follow HR mild Protein calorie malnutrition. BMI 22.3 Add ensure to diet mood continue home meds remote h/o OUD continue suboxone DVT prophylaxis with Lovenox Full code Requires ongoing inpatient stay for hypoxic respiratory failure secondary to pleural effusion and pneumonia requiring IV antibiotics and close monitoring of oxygenation, due to patient's history of adenocarcinoma this should not be done at a lesser acute setting due to risk for decompensation Quality Stroke Does the patient have a stroke diagnosis?: No VTE Prior VTE?: No VTE Risk Level:: Medical - moderate - high VTE Device Contraindication: Treatment Not Indicated VTE Drug Contraindication: N/A - Med Ordered
[2023-12-22] MEDS: cefTRIAXone sodium 1 GM in 0.9 % Sodium Chloride 50 ML IV (15:04)
[2023-12-22] MEDS: hydrOXYzine HCL 50 MG TABLET PO (17:13)
[2023-12-22] MEDS: Azithromycin 500 MG in 0.9 % Sodium Chloride 250 ML 125 MG IV (17:14)
[2023-12-22] MEDS: Divalproex Sodium ER 500 MG TAB.ER.24H 1000 MG PO (19:59)
[2023-12-22] MEDS: Atorvastatin Calcium 10 MG TABLET PO (20:00)
[2023-12-22] MEDS: OLANZapine 7.5 MG TABLET 15 MG PO (20:00)
[2023-12-22] MEDS: Tamsulosin HCL 0.4 MG CAPSULE PO (20:00)
[2023-12-23] MEDS: 0.9 % Sodium Chloride Flush 3 ML SYRINGE IVFLUSH ×4 (00:12→20:58)
[2023-12-23 03:10] VITALS: BP 122/62; PULSE 73; RESP 18; TEMP 36.9; O2SAT 96
[2023-12-23] MEDS: Levothyroxine Sodium 200 MCG TABLET PO (05:49)
[2023-12-23 06:45] LABS: Alanine Aminotransferase 112 U/L (0-40); Albumin Level 2.8 g/dL (3.5-5.0); Alkaline Phosphatase 155 U/L (39-117); Aspartate Amino Transferase 77 U/L (5-37); Bilirubin Direct < 0.2 mg/dL (0.0-0.5); Bilirubin Total 0.2 mg/dL (0.0-1.0); Total Protein 6.3 g/dL (6.5-8.0)
[2023-12-23 06:58] VITALS: BP 144/71; PULSE 66; RESP 22; TEMP 36.5; O2SAT 96
[2023-12-23] MEDS: Propranolol HCL LA 80 MG CAP.SA.24H PO (08:10)
[2023-12-23] MEDS: hydroCHLOROthiazide 12.5 MG TABLET PO (08:10)
[2023-12-23] MEDS: Buprenorphine/Naloxone 8/2 mg FILM 1 FILM SUBLINGUAL ×3 (08:10→20:54)
[2023-12-23] MEDS: traMADoL HCL 50 MG TABLET PO ×2 (08:10→20:54)
[2023-12-23] MEDS: Primidone 50 MG TABLET 250 MG PO ×2 (08:10→20:54)
[2023-12-23] MEDS: Furosemide 40 MG TABLET PO (08:10)
--- NOTE | 2023-12-23 09:27 | P.PNIM_ITS ---
Subjective Subjective Date of Service: 12/23/23 Interval History: seen and examined this morning Patient on 2 L supplemental oxygen. No acute nursing events overnight and patient without new complaints. Review of Systems Denies any recent fever chills or decrease in appetite respiratory denies any shortness of breath or cough cardiovascular denies chest pain gastrointestinal denies any dysphagia abdominal pain nausea vomiting or diarrhea genitourinary denies any dysuria frequency or hematuria musculoskeletal denies any joint pain or swelling neuropsych denies any weakness or seizures all other systems reviewed are negative Constitutional Constitutional: Denies chills and Denies fever(s) Cardiovascular Cardiovascular: Denies chest pain, Denies palpitations and Reports dyspnea on exertion Respiratory Respiratory: Reports cough and Reports dyspnea on exertion Gastrointestinal Gastrointestinal: Denies abdominal pain Endocrine Endocrine: Denies palpitations Physical Exam 2 Vital Signs: Vital Signs: Last Vital Signs Temp 97.7 F 12/23/23 06:58 Pulse 66 12/23/23 06:58 Resp 22 H 12/23/23 06:58 BP 144/71 H 12/23/23 06:58 Pulse Ox 96 12/23/23 06:58 O2 Del Method Nasal Cannula 12/23/23 06:58 O2 Flow Rate 2 12/23/23 06:58 Oxygen Flow Rate 3 12/20/23 11:25 BMI result Body Mass Index 22.1 Const: Other: thin chronically ill appearing General: cooperative, comfortable, alert and awake O rientation/consciousness: patient oriented x3 Chest: Other: port in place Resp: Other: diminished breath sounds right side; left side clear Effort & Inspection: normal respiratory effort, able to speak in complete sentences, no respiratory distress and no use of accessory muscles Cardio: Rate: regular rate GI: Inspection: No distended Palpation (GI): Soft to palpation and nontender Neuro: General: patient oriented x3, moves all extremities and CN's II-XI intact bilaterally Extrem: General: Yes no pedal edema Objective Data Active Medications Acetaminophen (Acetaminophen 325 Mg Tablet) 650 mg PO Q6H PRN PRN Reason: Pain, Mild (Pain Scale 1-3) Last Admin: 12/21/23 15:34 Dose: 650 mg Documented By: JAMI Atorvastatin Calcium (Atorvastatin Calcium 10 Mg Tablet) 10 mg PO BEDTIME [facility] Last Admin: 12/22/23 20:00 Dose: 10 mg Documented By: TITUS Buprenorphine/Naloxone (Buprenorphine/Naloxone 8/2 Mg Film) 1 film SUBLINGUAL TID [facility] Last Admin: 12/23/23 08:10 Dose: 1 film Documented By: KATERYNA Divalproex Sodium (Divalproex Sodium Er 500 Mg Tab.Er.24h) 1,000 mg PO BEDTIME [facility] Last Admin: 12/22/23 19:59 Dose: 1,000 mg Documented By: TITUS Enoxaparin Sodium (Enoxaparin Sodium 40 Mg/0.4 Ml Syringe) 40 mg SUBCUT Q24H [facility] Last Admin: 12/22/23 17:14 Dose: Not Given Documented By: DILIP Non-Admin Reason: Patient Refused Furosemide (Furosemide 40 Mg Tablet) 40 mg PO DAILY [facility]; Protocol Last Admin: 12/23/23 08:10 Dose: 40 mg Documented By: KATERYNA Guaifenesin (Guaifenesin 100 Mg/5 Ml Liquid) 5 ml PO Q4H PRN PRN Reason: Cough Hydrochlorothiazide (Hydrochlorothiazide 12.5 Mg Tablet) 12.5 mg PO DAILY [facility]; Protocol Last Admin: 12/23/23 08:10 Dose: 12.5 mg Documented By: KATERYNA Hydroxyzine HCl (Hydroxyzine Hcl 50 Mg Tablet) 50 mg PO DAILY@1800 [facility] Last Admin: 12/22/23 17:13 Dose: 50 mg Documented By: DILIP Hydroxyzine HCl (Hydroxyzine Hcl 25 Mg Tablet) 25 mg PO DAILY PRN PRN Reason: Anxiety Ceftriaxone Sodium 1 gm/ (Sodium Chloride) 50 mls @ 100 mls/hr IV Q24H [facility] Last Infusion: 12/22/23 15:40 Dose: Infused Documented By: SANTHOSH Azithromycin 500 mg/ Sodium (Chloride) 250 mls @ 125 mls/hr IV Q24H [facility] Last Infusion: 12/22/23 19:20 Dose: Infused Documented By: DILIP Levothyroxine Sodium (Levothyroxine Sodium 200 Mcg Tablet) 200 mcg PO DAILY@0600 [facility] Last Admin: 12/23/23 05:49 Dose: 200 mcg Documented By: TITUS Olanzapine (Olanzapine 7.5 Mg Tablet) 15 mg PO BEDTIME [facility] Last Admin: 12/22/23 20:00 Dose: 15 mg Documented By: TITUS Primidone (Primidone 50 Mg Tablet) 250 mg PO BID [facility] Last Admin: 12/23/23 08:10 Dose: 250 mg Documented By: KATERYNA Propranolol HCl (Propranolol Hcl La 80 Mg Cap.Sa.24h) 80 mg PO DAILY [facility]; Protocol Last Admin: 12/23/23 08:10 Dose: 80 mg Documented By: KATERYNA Sodium Chloride (0.9 % Sodium Chloride Flush 3 Ml Syringe) 3 ml IVFLUSH QSHIFT [facility] Last Admin: 12/23/23 08:11 Dose: 3 ml Documented By: KATERYNA Sodium Chloride (Sodium Chloride 0.65 % Nasal 44 Ml Sprbtl) 1 spray NOSTRIL-B Q1H PRN PRN Reason: Dry Nasal Passages Tamsulosin HCl (Tamsulosin Hcl 0.4 Mg Capsule) 0.4 mg PO BEDTIME [facility] Last Admin: 12/22/23 20:00 Dose: 0.4 mg Documented By: TITUS Tramadol HCl (Tramadol Hcl 50 Mg Tablet) 50 mg PO BID [facility] Last Admin: 12/23/23 08:10 Dose: 50 mg Documented By: KATERYNA Labs 12/21/23 05:16 12/21/23 05:16 Labs: Laboratory Results - last 24 hr 12/23/23 05:43 Hold Purple Top SEE NOTE Total Bilirubin 0.2 Direct Bilirubin < 0.2 AST 77 H ALT 112 H Alkaline Phosphatase 155 H Total Protein 6.3 L Albumin 2.8 L Microbiology Microbiology Results: Microbiology 12/20/23 15:57 Blood Culture - Preliminary Blood - Venous No growth after 48 hours. 12/20/23 15:57 Blood Culture - Preliminary Blood - Venous No growth after 48 hours. Assessment and Plan (1) Pneumonia: Status: Acute Plan This is a 68 year old man with hx of right lung adenocarcinoma under the care of [facility] who was sent from the office with sob found to have pneumonia and right pleural effusion s/p thoracentesis Acute hypoxic respiratory failure secondary to Pleural effusion and post obstructive pneumonia Status post therapeutic thoracentesis 12/19 with removal of 450 mL of yellow fluid continue IV Rocephin and azithromycin, started 12/19 wean Supplemental oxygen as tolerated, still on 2L [place] Cough suppressant as needed blood cx negative to date urinary retention not new but pt never seen by urologist will start flomox outpatient follow up recommended Transaminitis possibly related to chemotherapy tx trending down somewhat Metastatic lung Adenocarcinoma diagnosed 2021 Currently under going treatment with Dr. Lewis, last chemo 11/29 Hypothyroidism Continue levothyroxine Hyperlipidemia Continue statin HTN resume HCTZ, propranolol, lasix pt on high dose long acting propranolol confirmed prescription. pt bradycardia, will decrease dose and follow HR mild Protein calorie malnutrition. BMI 22.3 Add ensure to diet mood continue home meds remote h/o OUD continue suboxone DVT prophylaxis with Lovenox Full code Requires ongoing inpatient stay for hypoxic respiratory failure secondary to pleural effusion and pneumonia requiring IV antibiotics and close monitoring of oxygenation, due to patient's history of adenocarcinoma this should not be done at a lesser acute setting due to risk for decompensation Quality Stroke Does the patient have a stroke diagnosis?: No VTE Prior VTE?: No VTE Risk Level:: Medical - moderate - high VTE Device Contraindication: Treatment Not Indicated VTE Drug Contraindication: N/A - Med Ordered
[2023-12-23 10:57] VITALS: BP 121/62; PULSE 61; RESP 22; TEMP 36; O2SAT 94
[2023-12-23 15:04] VITALS: BP 127/60; PULSE 59; RESP 22; TEMP 36.2; O2SAT 97
[2023-12-23] MEDS: cefTRIAXone sodium 1 GM in 0.9 % Sodium Chloride 50 ML IV (16:02)
[2023-12-23] MEDS: Enoxaparin Sodium 40 MG/0.4 ML SYRINGE SUBCUT (16:02)
[2023-12-23] MEDS: Azithromycin 500 MG in 0.9 % Sodium Chloride 250 ML 125 MG IV (16:03)
[2023-12-23] MEDS: hydrOXYzine HCL 50 MG TABLET PO (17:28)
[2023-12-23 19:57] VITALS: BP 137/67; PULSE 63; RESP 14; TEMP 36.1; O2SAT 94
[2023-12-23] MEDS: Divalproex Sodium ER 500 MG TAB.ER.24H 1000 MG PO (20:53)
[2023-12-23] MEDS: Tamsulosin HCL 0.4 MG CAPSULE PO (20:53)
[2023-12-23] MEDS: Atorvastatin Calcium 10 MG TABLET PO (20:54)
[2023-12-23] MEDS: OLANZapine 7.5 MG TABLET 15 MG PO (20:54)
[2023-12-24] VITALS (8 sets, daily range): BP systolic 99–141; BP diastolic 58–72; PULSE 55–74; RESP 16–22; TEMP 35.8–37.6; O2SAT 92–96
[2023-12-24] MEDS: Levothyroxine Sodium 200 MCG TABLET PO (05:26)
[2023-12-24] MEDS: Buprenorphine/Naloxone 8/2 mg FILM 1 FILM SUBLINGUAL ×3 (08:28→20:45)
[2023-12-24] MEDS: Primidone 50 MG TABLET 250 MG PO ×2 (08:28→20:45)
[2023-12-24] MEDS: 0.9 % Sodium Chloride Flush 3 ML SYRINGE IVFLUSH ×3 (08:28→20:46)
[2023-12-24] MEDS: hydroCHLOROthiazide 12.5 MG TABLET PO (08:28)
[2023-12-24] MEDS: Propranolol HCL LA 80 MG CAP.SA.24H PO (08:29)
[2023-12-24] MEDS: Furosemide 40 MG TABLET PO (08:29)
[2023-12-24] MEDS: traMADoL HCL 50 MG TABLET PO ×2 (08:29→20:45)
--- NOTE | 2023-12-24 10:27 | P.PNIM_ITS ---
Subjective Subjective Date of Service: 12/24/23 Interval History: seen and examined this morning Patient on 2 L supplemental oxygen. No acute nursing events overnight. Patient dropped to saturation in the 80s on room air Review of Systems Denies any recent fever chills or decrease in appetite respiratory denies any shortness of breath or cough cardiovascular denies chest pain gastrointestinal denies any dysphagia abdominal pain nausea vomiting or diarrhea genitourinary denies any dysuria frequency or hematuria musculoskeletal denies any joint pain or swelling neuropsych denies any weakness or seizures all other systems reviewed are negative Constitutional Constitutional: Denies chills and Denies fever(s) Cardiovascular Cardiovascular: Denies chest pain, Denies palpitations and Reports dyspnea on exertion Respiratory Respiratory: Reports cough and Reports dyspnea on exertion Gastrointestinal Gastrointestinal: Denies abdominal pain Endocrine Endocrine: Denies palpitations Physical Exam 2 Vital Signs: Vital Signs: Last Vital Signs Temp 96.7 F L 12/24/23 07:56 Pulse 72 12/24/23 07:56 Resp 22 H 12/24/23 07:56 BP 132/72 12/24/23 07:56 Pulse Ox 94 12/24/23 07:56 O2 Del Method Nasal Cannula 12/24/23 07:56 O2 Flow Rate 2 12/24/23 07:56 Oxygen Flow Rate 3 12/20/23 11:25 BMI result Body Mass Index 22.1 Const: Other: thin chronically ill appearing General: cooperative, comfortable, alert and awake O rientation/consciousness: patient oriented x3 Chest: Other: port in place Resp: Other: diminished breath sounds right side; left side clear Effort & Inspection: normal respiratory effort, able to speak in complete sentences, no respiratory distress and no use of accessory muscles Cardio: Rate: regular rate GI: Inspection: No distended Palpation (GI): Soft to palpation and nontender Neuro: General: patient oriented x3, moves all extremities and CN's II-XI intact bilaterally Extrem: General: Yes no pedal edema Objective Data Active Medications Acetaminophen (Acetaminophen 325 Mg Tablet) 650 mg PO Q6H PRN PRN Reason: Pain, Mild (Pain Scale 1-3) Last Admin: 12/21/23 15:34 Dose: 650 mg Documented By: JAMI Atorvastatin Calcium (Atorvastatin Calcium 10 Mg Tablet) 10 mg PO BEDTIME [facility] Last Admin: 12/23/23 20:54 Dose: 10 mg Documented By: MORENITA Buprenorphine/Naloxone (Buprenorphine/Naloxone 8/2 Mg Film) 1 film SUBLINGUAL TID [facility] Last Admin: 12/24/23 08:28 Dose: 1 film Documented By: KATERYNA Divalproex Sodium (Divalproex Sodium Er 500 Mg Tab.Er.24h) 1,000 mg PO BEDTIME [facility] Last Admin: 12/23/23 20:53 Dose: 1,000 mg Documented By: MORENITA Enoxaparin Sodium (Enoxaparin Sodium 40 Mg/0.4 Ml Syringe) 40 mg SUBCUT Q24H [facility] Last Admin: 12/23/23 16:02 Dose: 40 mg Documented By: KATERYNA Furosemide (Furosemide 40 Mg Tablet) 40 mg PO DAILY [facility]; Protocol Last Admin: 12/24/23 08:29 Dose: 40 mg Documented By: KATERYNA Guaifenesin (Guaifenesin 100 Mg/5 Ml Liquid) 5 ml PO Q4H PRN PRN Reason: Cough Hydrochlorothiazide (Hydrochlorothiazide 12.5 Mg Tablet) 12.5 mg PO DAILY [facility]; Protocol Last Admin: 12/24/23 08:28 Dose: 12.5 mg Documented By: KATERYNA Hydroxyzine HCl (Hydroxyzine Hcl 50 Mg Tablet) 50 mg PO DAILY@1800 [facility] Last Admin: 12/23/23 17:28 Dose: 50 mg Documented By: KATERYNA Hydroxyzine HCl (Hydroxyzine Hcl 25 Mg Tablet) 25 mg PO DAILY PRN PRN Reason: Anxiety Ceftriaxone Sodium 1 gm/ (Sodium Chloride) 50 mls @ 100 mls/hr IV Q24H [facility] Last Infusion: 12/23/23 17:29 Dose: Infused Documented By: KATERYNA Azithromycin 500 mg/ Sodium (Chloride) 250 mls @ 125 mls/hr IV Q24H [facility] Last Infusion: 12/23/23 19:02 Dose: Infused Documented By: KATERYNA Levothyroxine Sodium (Levothyroxine Sodium 200 Mcg Tablet) 200 mcg PO DAILY@0600 [facility] Last Admin: 12/24/23 05:26 Dose: 200 mcg Documented By: ANTOIC Olanzapine (Olanzapine 7.5 Mg Tablet) 15 mg PO BEDTIME [facility] Last Admin: 12/23/23 20:54 Dose: 15 mg Documented By: MORENITA Primidone (Primidone 50 Mg Tablet) 250 mg PO BID [facility] Last Admin: 12/24/23 08:28 Dose: 250 mg Documented By: KATERYNA Propranolol HCl (Propranolol Hcl La 80 Mg Cap.Sa.24h) 80 mg PO DAILY [facility]; Protocol Last Admin: 12/24/23 08:29 Dose: 80 mg Documented By: KATERYNA Sodium Chloride (0.9 % Sodium Chloride Flush 3 Ml Syringe) 3 ml IVFLUSH QSHIFT [facility] Last Admin: 12/24/23 08:28 Dose: 3 ml Documented By: KATERYNA Sodium Chloride (Sodium Chloride 0.65 % Nasal 44 Ml Sprbtl) 1 spray NOSTRIL-B Q1H PRN PRN Reason: Dry Nasal Passages Tamsulosin HCl (Tamsulosin Hcl 0.4 Mg Capsule) 0.4 mg PO BEDTIME [facility] Last Admin: 12/23/23 20:53 Dose: 0.4 mg Documented By: MORENITA Tramadol HCl (Tramadol Hcl 50 Mg Tablet) 50 mg PO BID [facility] Last Admin: 12/24/23 08:29 Dose: 50 mg Documented By: KATERYNA Labs 12/21/23 05:16 12/21/23 05:16 Assessment and Plan (1) Acute hypoxic respiratory failure: Status: Acute Plan This is a 68 year old man with hx of right lung adenocarcinoma under the care of [facility] who was sent from the office with sob found to have pneumonia and right pleural effusion s/p thoracentesis Acute hypoxic respiratory failure secondary to Pleural effusion and post obstructive pneumonia Status post therapeutic thoracentesis 12/19 with removal of 450 mL of yellow fluid continue IV Rocephin and azithromycin, started 12/20 wean Supplemental oxygen as tolerated, still on 2L [place] Cough suppressant as needed blood cx negative to date urinary retention not new but pt never seen by urologist will start flomox outpatient follow up recommended Transaminitis possibly related to chemotherapy tx trending down Metastatic lung Adenocarcinoma diagnosed 2021 Currently under going treatment with Dr. Lewis, last chemo 11/29 Hypothyroidism Continue levothyroxine Hyperlipidemia Continue statin HTN resume HCTZ, propranolol, lasix pt on high dose long acting propranolol confirmed prescription. pt bradycardia, will decrease dose and follow HR mild Protein calorie malnutrition. BMI 22.3 Add ensure to diet mood continue home meds remote h/o OUD continue suboxone DVT prophylaxis with Lovenox Full code Requires ongoing inpatient stay for hypoxic respiratory failure secondary to pleural effusion and pneumonia requiring IV antibiotics and close monitoring of oxygenation, due to patient's history of adenocarcinoma this should not be done at a lesser acute setting due to risk for decompensation Quality Stroke Does the patient have a stroke diagnosis?: No VTE Prior VTE?: No VTE Risk Level:: Medical - moderate - high VTE Device Contraindication: Treatment Not Indicated VTE Drug Contraindication: N/A - Med Ordered
[2023-12-24] MEDS: hydrOXYzine HCL 50 MG TABLET PO (17:33)
[2023-12-24] MEDS: cefTRIAXone sodium 1 GM in 0.9 % Sodium Chloride 50 ML IV (17:34)
[2023-12-24] MEDS: Enoxaparin Sodium 40 MG/0.4 ML SYRINGE SUBCUT (17:34)
[2023-12-24] MEDS: Azithromycin 500 MG in 0.9 % Sodium Chloride 250 ML 125 MG IV (17:37)
[2023-12-24] MEDS: guaiFENesin 100 MG/5 ML LIQUID PO (20:45)
[2023-12-24] MEDS: Tamsulosin HCL 0.4 MG CAPSULE PO (20:45)
[2023-12-24] MEDS: Atorvastatin Calcium 10 MG TABLET PO (20:45)
[2023-12-24] MEDS: Acetaminophen 325 MG TABLET 650 MG PO (20:45)
[2023-12-24] MEDS: OLANZapine 7.5 MG TABLET 15 MG PO (20:45)
[2023-12-24] MEDS: Divalproex Sodium ER 500 MG TAB.ER.24H 1000 MG PO (20:45)
[2023-12-25] VITALS (7 sets, daily range): BP systolic 108–148; BP diastolic 50–75; PULSE 55–65; RESP 16–20; TEMP 36.1–37; O2SAT 93–97
[2023-12-25] MEDS: Levothyroxine Sodium 200 MCG TABLET PO (05:09)
[2023-12-25 06:57] LABS: MANUAL DIFF FLAG NO
[2023-12-25 07:01] LABS: Basophils Percent Auto 0.7 % (0-2); Eosinophils Absolute Auto 0.6 X10*3/uL (0.0-0.4); Eosinophils Percent Auto 9.8 % (0-4); Hematocrit 29.6 % (42.0-52.0); Hemoglobin 9.4 g/dl (14.0-18.0); Imm Gran Abs Auto 0.16 X10*3/uL (0.00-0.03); Imm Gran Pct Auto 2.8 % (0.0-0.4); Lymphocytes Absolute Auto 1.3 X10*3/uL (1.2-4.9); Lymphocytes Percent Auto 22.7 % (20-40); Mean Corpuscular HGB Conc 31.8 g/dl (31.0-36.0); Mean Corpuscular Hemoglobin 25.8 pg (27.0-33.0); Mean Corpuscular Volume 81.1 fL (80.0-98.0); Mean Platelet Volume 8.9 fL (9.4-12.4); Monocytes Absolute Auto 0.8 X10*3/uL (0.1-1.2); Neutrophils Absolute Auto 2.9 x10*3/uL (2.0-8.3); Platelet Count 421 X10*3/uL (160-400); Red Blood Count 3.65 X10*6/uL (4.60-5.80); Red Cell Distribution Width 19.2 % (11.0-16.0); White Blood Count 5.7 X10*3/uL (4.8-10.8)
[2023-12-25 07:43] LABS: Alanine Aminotransferase 81 U/L (0-40); Albumin Level 2.9 g/dL (3.5-5.0); Alkaline Phosphatase 136 U/L (39-117); Anion Gap 14 (12-20); Aspartate Amino Transferase 50 U/L (5-37); Bilirubin Total 0.1 mg/dL (0.0-1.0); Blood Urea Nitrogen 20 mg/dL (9-16); Calcium 8.8 mg/dL (8.4-10.2); Carbon Dioxide 30 mmol/L (22-29); Chloride 99 mmol/L (96-108); Creatinine Clr Calc Pharmacy 85.6; Estimated Glomerular Filt Rate > 60; Glucose Random 86 mg/dL (60-115); Potassium 3.9 mmol/L (3.3-5.1); Sodium 139 mmol/L (135-145); Total Protein 6.3 g/dL (6.5-8.0)
[2023-12-25] MEDS: Primidone 50 MG TABLET 250 MG PO ×2 (09:03→21:31)
[2023-12-25] MEDS: traMADoL HCL 50 MG TABLET PO ×2 (09:03→21:35)
[2023-12-25] MEDS: Furosemide 40 MG TABLET PO (09:03)
[2023-12-25] MEDS: Buprenorphine/Naloxone 8/2 mg FILM 1 FILM SUBLINGUAL ×3 (09:05→21:29)
[2023-12-25] MEDS: bisacodyL 5 MG TABLET.DR 10 MG PO ×2 (09:05→21:30)
[2023-12-25] MEDS: polyethylene glycoL 3350 17 GM POWD.PACK PO (09:05)
[2023-12-25] MEDS: hydroCHLOROthiazide 12.5 MG TABLET PO (09:05)
[2023-12-25] MEDS: 0.9 % Sodium Chloride Flush 3 ML SYRINGE IVFLUSH (09:06)
[2023-12-25] MEDS: Propranolol HCL LA 80 MG CAP.SA.24H PO (09:14)
--- NOTE | 2023-12-25 10:20 | MHC.CM.PN ---
PER MD ROUNDS, PT NOT EXPECTED TO DC TODAY PT IS RECOMMENDING HOME WITH SERVICES, [facility] HAS ACCEPTED REFERRAL DCP: HOME WITH RESUMPTION OF [facility] [facility] AND [facility], AND NEW [facility] FOR HOME PT SON TO TRANSPORT
--- NOTE | 2023-12-25 10:33 | P.PNIM_ITS ---
Subjective Subjective Date of Service: 12/25/23 Interval History: seen and examined this morning Patient on 2 L supplemental oxygen. No acute nursing events overnight. Patient dropped to saturation in the 80s on room air Review of Systems Denies any recent fever chills or decrease in appetite respiratory denies any shortness of breath or cough cardiovascular denies chest pain gastrointestinal denies any dysphagia abdominal pain nausea vomiting or diarrhea genitourinary denies any dysuria frequency or hematuria musculoskeletal denies any joint pain or swelling neuropsych denies any weakness or seizures all other systems reviewed are negative Constitutional Constitutional: Denies chills and Denies fever(s) Cardiovascular Cardiovascular: Denies chest pain, Denies palpitations and Reports dyspnea on exertion Respiratory Respiratory: Reports cough and Reports dyspnea on exertion Gastrointestinal Gastrointestinal: Denies abdominal pain Endocrine Endocrine: Denies palpitations Physical Exam 2 Vital Signs: Vital Signs: Last Vital Signs Temp 97 F 12/25/23 08:00 Pulse 65 12/25/23 08:00 Resp 20 12/25/23 08:00 BP 139/71 12/25/23 08:00 Pulse Ox 93 12/25/23 08:00 O2 Del Method Nasal Cannula 12/25/23 08:00 O2 Flow Rate 2 12/25/23 08:00 Oxygen Flow Rate 3 12/20/23 11:25 BMI result Body Mass Index 22.1 Appearing in no acute distress lung sounds are clear to auscultation heart regular rate rhythm, clear S1, S2 positive bowel sounds, abdomen is soft, nontender neuro patient is alert x3, no focal deficits Objective Data Active Medications Acetaminophen (Acetaminophen 325 Mg Tablet) 650 mg PO Q6H PRN PRN Reason: Pain, Mild (Pain Scale 1-3) Last Admin: 12/24/23 20:45 Dose: 650 mg Documented By: JUAN RAMON Atorvastatin Calcium (Atorvastatin Calcium 10 Mg Tablet) 10 mg PO BEDTIME [facility] [place] Last Admin: 12/24/23 20:45 Dose: 10 mg Documented By: JUAN RAMON Bisacodyl (Bisacodyl 5 Mg Tablet.Dr) 10 mg PO BID [facility] [place] Last Admin: 12/25/23 09:05 Dose: 10 mg Documented By: OLIVER Buprenorphine/Naloxone (Buprenorphine/Naloxone 8/2 Mg Film) 1 film SUBLINGUAL TID [facility] [place] Last Admin: 12/25/23 09:05 Dose: 1 film Documented By: OLIVER Divalproex Sodium (Divalproex Sodium Er 500 Mg Tab.Er.24h) 1,000 mg PO BEDTIME [facility] Last Admin: 12/24/23 20:45 Dose: 1,000 mg Documented By: JUAN RAMON Enoxaparin Sodium (Enoxaparin Sodium 40 Mg/0.4 Ml Syringe) 40 mg SUBCUT Q24H [facility] Last Admin: 12/24/23 17:34 Dose: 40 mg Documented By: KATERYNA Furosemide (Furosemide 40 Mg Tablet) 40 mg PO DAILY [facility]; Protocol Last Admin: 12/25/23 09:03 Dose: 40 mg Documented By: OLIVER Guaifenesin (Guaifenesin 100 Mg/5 Ml Liquid) 5 ml PO Q4H PRN PRN Reason: Cough Last Admin: 12/24/23 20:45 Dose: 5 ml Documented By: JUAN RAMON Hydrochlorothiazide (Hydrochlorothiazide 12.5 Mg Tablet) 12.5 mg PO DAILY [facility] [place]; Protocol Last Admin: 12/25/23 09:05 Dose: 12.5 mg Documented By: OLIVER Hydroxyzine HCl (Hydroxyzine Hcl 50 Mg Tablet) 50 mg PO DAILY@1800 [facility] [place] Last Admin: 12/24/23 17:33 Dose: 50 mg Documented By: KATERYNA Hydroxyzine HCl (Hydroxyzine Hcl 25 Mg Tablet) 25 mg PO DAILY PRN PRN Reason: Anxiety Ceftriaxone Sodium 1 gm/ (Sodium Chloride) 50 mls @ 100 mls/hr IV Q24H [facility] [place] Last Infusion: 12/24/23 18:43 Dose: Infused Documented By: KATERYNA Azithromycin 500 mg/ Sodium (Chloride) 250 mls @ 125 mls/hr IV Q24H [facility] Last Infusion: 12/24/23 20:44 Dose: Infused Documented By: JUAN RAMON Levothyroxine Sodium (Levothyroxine Sodium 200 Mcg Tablet) 200 mcg PO DAILY@0600 [facility] [place] Last Admin: 12/25/23 05:09 Dose: 200 mcg Documented By: JUAN RAMON Olanzapine (Olanzapine 7.5 Mg Tablet) 15 mg PO BEDTIME [facility] [place] Last Admin: 12/24/23 20:45 Dose: 15 mg Documented By: JUAN RAMON Polyethylene Glycol (Polyethylene Glycol 3350 17 Gm Powd.Pack) 17 gm PO DAILY [facility] [place] Last Admin: 12/25/23 09:05 Dose: 17 gm Documented By: OLIVER Primidone (Primidone 50 Mg Tablet) 250 mg PO BID [facility] [place] Last Admin: 12/25/23 09:03 Dose: 250 mg Documented By: OLIVER Propranolol HCl (Propranolol Hcl La 80 Mg Cap.Sa.24h) 80 mg PO DAILY [facility] [place]; Protocol Last Admin: 12/25/23 09:14 Dose: 80 mg Documented By: OLIVER Sodium Chloride (0.9 % Sodium Chloride Flush 3 Ml Syringe) 3 ml IVFLUSH QSHIFT [facility] [place] Last Admin: 12/25/23 09:06 Dose: 3 ml Documented By: OLIVER Sodium Chloride (Sodium Chloride 0.65 % Nasal 44 Ml Sprbtl) 1 spray NOSTRIL-B Q1H PRN PRN Reason: Dry Nasal Passages Tamsulosin HCl (Tamsulosin Hcl 0.4 Mg Capsule) 0.4 mg PO BEDTIME [facility] [place] Last Admin: 12/24/23 20:45 Dose: 0.4 mg Documented By: JUAN RAMON Tramadol HCl (Tramadol Hcl 50 Mg Tablet) 50 mg PO BID [facility] [place] Last Admin: 12/25/23 09:03 Dose: 50 mg Documented By: OLIVER Labs 12/25/23 06:10 12/25/23 06:10 Labs: Laboratory Results - last 24 hr 12/25/23 06:10 MCV 81.1 MCH 25.8 L MCHC 31.8 RDW 19.2 H Plt Count 421 H MPV 8.9 L Immature Gran % (Auto) 2.8 H Neut % (Auto) 50.0 Lymph % (Auto) 22.7 [place] % (Auto) 14.0 H Eos % (Auto) 9.8 H Baso % (Auto) 0.7 Lymph # (Auto) 1.3 [place] # (Auto) 0.8 Eos # (Auto) 0.6 H Baso # (Auto) 0.0 Abs Immat Gran (auto) 0.16 H Absolute Neuts (auto) 2.9 Absolute Nucleated RBC 0.000 Nucleated RBC % (auto) 0.0 Anion Gap 14 Estim Creat Clear Calc 85.6 Estimated GFR > 60 Random Glucose 86 Calcium 8.8 Total Bilirubin 0.1 AST 50 H ALT 81 H Alkaline Phosphatase 136 H Total Protein 6.3 L Albumin 2.9 L Assessment and Plan (1) Acute hypoxic respiratory failure: Status: Acute Plan 68 year old man with hx of right lung adenocarcinoma under the care of [facility] who was sent from the office with sob found to have pneumonia and right pleural effusion s/p thoracentesis Acute hypoxic respiratory failure secondary to Pleural effusion and post obstructive pneumonia Status post therapeutic thoracentesis 12/19 with removal of 450 mL of yellow fluid continue IV Rocephin and azithromycin, started 12/20 wean Supplemental oxygen as tolerated, still on 2L NC Cough suppressant as needed blood cx negative to date repeat CXR due to sob Urinary retention not new but pt never seen by urologist will start flomax bladder scan Qshift, st cath as needed for >400 constipation miralax bisacodyl Transaminitis possibly related to chemotherapy tx trending down Metastatic lung Adenocarcinoma diagnosed 2021 Currently under going treatment with Dr. Lewis, last chemo 11/29 Hypothyroidism Continue levothyroxine Hyperlipidemia Continue statin HTN resume HCTZ, propranolol, lasix pt on high dose long acting propranolol confirmed prescription. pt bradycardia, will decrease dose and follow HR mild Protein calorie malnutrition. BMI 22.1 Add ensure to diet mood continue home meds remote h/o OUD continue suboxone DVT prophylaxis with Lovenox Attending Dr. Ochoa Full code Requires ongoing inpatient stay for hypoxic respiratory failure secondary to pleural effusion and pneumonia requiring IV antibiotics and close monitoring of oxygenation, due to patient's history of adenocarcinoma this should not be done at a lesser acute setting due to risk for decompensation Quality Stroke Does the patient have a stroke diagnosis?: No VTE Prior VTE?: No VTE Risk Level:: Medical - moderate - high VTE Device Contraindication: Treatment Not Indicated VTE Drug Contraindication: N/A - Med Ordered
--- NOTE | 2023-12-25 12:15 | PC.NURSE ---
Patient unable to urinate this morning, bladder scan for 539ml, order for str cath and bladder scan Q shift received. Before str cath could be performed patient voided 350ml. Provider notified, will continue to monitor and perform bladder scan as ordered.
[2023-12-25] MEDS: cefTRIAXone sodium 1 GM in 0.9 % Sodium Chloride 50 ML IV (15:36)
[2023-12-25] MEDS: Azithromycin 500 MG in 0.9 % Sodium Chloride 250 ML 125 MG IV (16:15)
[2023-12-25] MEDS: hydrOXYzine HCL 50 MG TABLET PO (18:28)
[2023-12-25] MEDS: Enoxaparin Sodium 40 MG/0.4 ML SYRINGE SUBCUT (18:28)
[2023-12-25] MEDS: Divalproex Sodium ER 500 MG TAB.ER.24H 1000 MG PO (21:32)
[2023-12-25] MEDS: Atorvastatin Calcium 10 MG TABLET PO (21:32)
[2023-12-25] MEDS: Tamsulosin HCL 0.4 MG CAPSULE PO (21:32)
[2023-12-25] MEDS: OLANZapine 7.5 MG TABLET 15 MG PO (21:33)
[2023-12-25] MEDS: Docusate Sodium 100 MG CAPSULE PO (21:34)
[2023-12-26] VITALS (7 sets, daily range): BP systolic 116–161; BP diastolic 56–75; PULSE 55–91; RESP 16–20; TEMP 36.1–36.7; O2SAT 84–100
[2023-12-26] MEDS: Levothyroxine Sodium 200 MCG TABLET PO (08:02)
[2023-12-26 09:15] LABS: Anion Gap 14 (12-20); Blood Urea Nitrogen 19 mg/dL (9-16); Calcium 9.3 mg/dL (8.4-10.2); Carbon Dioxide 29 mmol/L (22-29); Chloride 97 mmol/L (96-108); Creatinine Clr Calc Pharmacy 78.7; Estimated Glomerular Filt Rate > 60; Glucose Random 87 mg/dL (60-115); Potassium 3.7 mmol/L (3.3-5.1); Sodium 136 mmol/L (135-145)
[2023-12-26 09:22] LABS: B Type Natriuretic Peptide 54 pg/mL (<100)
--- NOTE | 2023-12-26 09:28 | PM.CNPUL ---
History of Present Illness History of Present Illness Consult date: 12/26/23 Chief complaint: Pleurel Effusion,Pna Narrative: 68-year-old man with history of right lung adenocarcinoma seen by his oncologist today and sent to the ER due to shortness of breath. Patient and his son reported that he has been having shortness of breath over the last week, progressive and feeling of fatigue. He denied chest pain, nausea, vomiting, diarrhea, fever, chills, recent travel, recent illness. Patient underwent thoracentesis in the ER with 450 mL of yellow fluid removed, post pneumothorax x-ray showing possible pulmonary edema versus worsening pneumonia. Patient requiring 2 L of oxygen, labs within acceptable limits, noted transaminitis. He received a dose of Rocephin in the ER. He will be admitted for further management and treatment of acute hypoxic respiratory failure secondary to pleural effusion and postobstructive pneumonia. The patient was admitted to the hospital placed on IV antibiotics including ceftriaxone and azithromycin for the suspected right lower lobe pneumonia. Unfortunately, the fluid was not sent for any analysis so therefore hard to know exactly this is a parapneumonic process or a malignant effusion. The patient did have a PET scan and October 2023 demonstrating some interval increase in FDG activity in the hilar lymph nodes suggesting recurrence of the cancer. Therefore, I suspect that this is likely malignant effusion. Post the thoracentesis the patient did develop what appeared to be an alveolar filling process such as pulmonary edema. He is currently on oxygen. Will go ahead and diurese him further and continue the antibiotics. The patient still has small pleural effusion but is too small to tap at this time. Therefore he will need serial chest x-rays as an outpatient to monitor the effusion see if it can be re tab in order to send it for analysis. If this is a monitoring process then a PleurX catheter may be warranted specially the fluids coming back fairly quickly. Review of Systems Constitutional: Constitutional: Reports fatigue and Denies fever(s) ENT: Reports nasal congestion Cardiovascular: Cardiovascular: Denies chest pain and Reports dyspnea Respiratory: Respiratory: Reports cough, Reports dyspnea and Denies wheezing Gastrointestinal: Gastrointestinal: Reports no additional gastrointestinal complaints Musculoskeletal: Musculoskeletal: Reports abnormal gait, Reports muscle weakness and Reports numbness Neurologic: Reports abnormal gait and Reports numbness Endocrine: Endocrine: Reports fatigue Hematologic/Lymphatic: Hematologic/Lymphatic: Denies easy bleeding Allergic/Immunologic: Allergic/Immunologic: Denies wheezing PMFSH Past Medical History Medical History Wound dehiscence, surgical Maintenance chemotherapy following disease Dysphagia Smoker Graves' orbitopathy Hypothyroidism Family History Family History Father Diabetes mellitus Mother Alzheimer disease Surgical History Surgical History History of bronchoscopy History of esophagogastroduodenoscopy (EGD) Hx of colonoscopy Lung cancer Hx of cataract surgery Social History Social History Household Members: Children Housing: House Are you a primary health care liaison to a significant other at home: No Do you presently have visiting nurse or other home services: No (No VNA but son is [employer]) Alcohol intake: current Alcohol intake frequency: does not drink Patient Tobacco Use Status: Former Tobacco user Quit Date: quit 1 month ago Tobacco use type: Cigarette e-Cigarette/Vaping Use: Currently Using Second Hand Smoke Exposure: No Substance Use Type: Marijuana service: No Current occupational status: disabled Meds Allergies Allergy/AdvReac Type Severity Reaction Status Date / Time No Known Allergies Allergy Verified 09/12/23 11:58 [No Known Allergies*] Active Medications: Current Medications Acetaminophen (Acetaminophen 325 Mg Tablet) 650 mg PO Q6H PRN PRN Reason: Pain, Mild (Pain Scale 1-3) Last Admin: 12/24/23 20:45 Dose: 650 mg Atorvastatin Calcium (Atorvastatin Calcium 10 Mg Tablet) 10 mg PO BEDTIME [facility] Last Admin: 12/25/23 21:32 Dose: 10 mg Bisacodyl (Bisacodyl 5 Mg Tablet.Dr) 10 mg PO BID [facility] Last Admin: 12/25/23 21:30 Dose: 10 mg Buprenorphine/Naloxone (Buprenorphine/Naloxone 8/2 Mg Film) 1 film SUBLINGUAL TID [facility] Last Admin: 12/25/23 21:29 Dose: 1 film Divalproex Sodium (Divalproex Sodium Er 500 Mg Tab.Er.24h) 1,000 mg PO BEDTIME [facility] Last Admin: 12/25/23 21:32 Dose: 1,000 mg Docusate Sodium (Docusate Sodium 100 Mg Capsule) 100 mg PO BID [facility] Last Admin: 12/25/23 21:34 Dose: 100 mg Enoxaparin Sodium (Enoxaparin Sodium 40 Mg/0.4 Ml Syringe) 40 mg SUBCUT Q24H [facility] Last Admin: 12/25/23 18:28 Dose: 40 mg Furosemide (Furosemide 40 Mg Tablet) 40 mg PO DAILY [facility]; Protocol Last Admin: 12/25/23 09:03 Dose: 40 mg Guaifenesin (Guaifenesin 100 Mg/5 Ml Liquid) 5 ml PO Q4H PRN PRN Reason: Cough Last Admin: 12/24/23 20:45 Dose: 5 ml Hydrochlorothiazide (Hydrochlorothiazide 12.5 Mg Tablet) 12.5 mg PO DAILY [facility]; Protocol Last Admin: 12/25/23 09:05 Dose: 12.5 mg Hydroxyzine HCl (Hydroxyzine Hcl 50 Mg Tablet) 50 mg PO DAILY@1800 [facility] Last Admin: 12/25/23 18:28 Dose: 50 mg Hydroxyzine HCl (Hydroxyzine Hcl 25 Mg Tablet) 25 mg PO DAILY PRN PRN Reason: Anxiety Ceftriaxone Sodium 1 gm/ (Sodium Chloride) 50 mls @ 100 mls/hr IV Q24H [facility] Last Infusion: 12/25/23 16:20 Dose: Infused Azithromycin 500 mg/ Sodium (Chloride) 250 mls @ 125 mls/hr IV Q24H [facility] Last Infusion: 12/25/23 18:31 Dose: Infused Levothyroxine Sodium (Levothyroxine Sodium 200 Mcg Tablet) 200 mcg PO DAILY@0600 [facility] Last Admin: 12/26/23 08:02 Dose: 200 mcg Olanzapine (Olanzapine 7.5 Mg Tablet) 15 mg PO BEDTIME [facility] Last Admin: 12/25/23 21:33 Dose: 15 mg Polyethylene Glycol (Polyethylene Glycol 3350 17 Gm Powd.Pack) 17 gm PO DAILY [facility] Last Admin: 12/25/23 09:05 Dose: 17 gm Primidone (Primidone 50 Mg Tablet) 250 mg PO BID [facility] Last Admin: 12/25/23 21:31 Dose: 250 mg Propranolol HCl (Propranolol Hcl La 80 Mg Cap.Sa.24h) 80 mg PO DAILY [facility]; Protocol Last Admin: 12/25/23 09:14 Dose: 80 mg Sodium Chloride (0.9 % Sodium Chloride Flush 3 Ml Syringe) 3 ml IVFLUSH QSHIFT [facility] Last Admin: 12/26/23 00:00 Dose: Not Given Sodium Chloride (Sodium Chloride 0.65 % Nasal 44 Ml Sprbtl) 1 spray NOSTRIL-B Q1H PRN PRN Reason: Dry Nasal Passages Tamsulosin HCl (Tamsulosin Hcl 0.4 Mg Capsule) 0.4 mg PO BEDTIME [facility] Last Admin: 12/25/23 21:32 Dose: 0.4 mg Home Medications Medication Instructions Recorded Confirmed Last Taken Type buprenorphine 8 mg-naloxone 2 mg 1 film sublingual TID 01/08/21 12/20/23 12/20/23 History sublingual film divalproex 500 mg tablet,extended 1,000 mg PO BEDTIME 01/08/21 12/20/23 12/20/23 History release 24 hr hydrochlorothiazide 12.5 mg capsule 12.5 mg PO DAILY 01/08/21 12/20/23 12/20/23 History hydroxyzine HCl 25 mg tablet 50 mg PO DAILY@1800 Anxiety 01/08/21 12/20/23 12/20/23 History primidone 250 mg tablet 250 mg PO BID 01/08/21 12/20/23 12/20/23 History propranolol 160 mg capsule,24 160 mg PO BID 01/08/21 12/20/23 12/20/23 History hr,extended release olanzapine 15 mg tablet 1 tab PO BEDTIME 04/04/22 12/20/23 12/20/23 History simvastatin 20 mg tablet 20 mg PO BEDTIME 06/05/23 12/20/23 12/19/23 History hydroxyzine HCl 25 mg tablet 25 mg PO DAILY PRN Anxiety 12/20/23 12/20/23 Unknown History tramadol 50 mg tablet 50 mg PO BID Pain 12/20/23 12/20/23 12/20/23 History Physical Exam Vital Signs: Vital Signs: Last Vital Signs Temp 97.3 F 12/26/23 07:04 Pulse 64 12/26/23 08:56 Resp 20 12/26/23 07:04 BP 146/69 H 12/26/23 08:56 Pulse Ox 98 12/26/23 08:56 O2 Del Method Nasal Cannula 12/26/23 07:04 O2 Flow Rate 2 12/26/23 07:04 Oxygen Flow Rate 3 12/20/23 11:25 BMI result Body Mass Index 22.1 Const: Other: thin chronically ill appearing General: cooperative, comfortable, alert and awake Orientation/consciousness: patient oriented x3 Chest: Other: port in place Resp: Other: diminished breath sounds right side; left side clear Effort & Inspection: normal respiratory effort, able to speak in complete sentences, no respiratory distress and no use of accessory muscles Cardio: Rate: regular rate GI: Inspection: No distended Palpation (GI): Soft to palpation and nontender Neuro: General: patient oriented x3, moves all extremities and CN's II-XI intact bilaterally Extrem: General: Yes no pedal edema Results Laboratory Findings 12/25/23 06:10 12/26/23 08:57 ABG, PT/INR, D-dimer: PT/INR, D-dimer PT 14.6 SEC (11.1-13.3) H 12/20/23 11:50 INR 1.2 (0.9-1.1) H 12/20/23 11:50 Abnormal lab findings: Abnormal Labs 12/20/23 12/20/23 12/21/23 11:50 20:49 05:16 RBC 3.82 L 3.65 L Hgb 9.7 L 9.3 L Hct 31.2 L 29.5 L MCH 25.4 L 25.5 L RDW 19.8 H 19.5 H Plt Count 508 H 501 H MPV 8.7 L 8.6 L Immature Gran % (Auto) 2.0 H 2.0 H Lymph % (Auto) 17.5 L [place] % (Auto) 15.1 H 15.8 H Eos % (Auto) Eos # (Auto) Abs Immat Gran (auto) 0.14 H 0.14 H PT 14.6 H INR 1.2 H Carbon Dioxide Anion Gap 11 L BUN 29 H 21 H POC Glucose 125 H Random Glucose 134 H AST 82 H ALT 117 H Alkaline Phosphatase 165 H Total Protein Albumin 2.9 L 12/23/23 12/25/23 12/26/23 05:43 06:10 08:57 RBC 3.65 L Hgb 9.4 L Hct 29.6 L MCH 25.8 L RDW 19.2 H Plt Count 421 H MPV 8.9 L Immature Gran % (Auto) 2.8 H Lymph % (Auto) [place] % (Auto) 14.0 H Eos % (Auto) 9.8 H Eos # (Auto) 0.6 H Abs Immat Gran (auto) 0.16 H PT INR Carbon Dioxide 30 H Anion Gap BUN 20 H 19 H POC Glucose Random Glucose AST 77 H 50 H ALT 112 H 81 H Alkaline Phosphatase 155 H 136 H Total Protein 6.3 L 6.3 L Albumin 2.8 L 2.9 L Microbiology: Microbiology 12/20/23 15:57 Blood - Venous Blood Culture - Final No growth after 5 days. 12/20/23 15:57 Blood - Venous Blood Culture - Final No growth after 5 days. Assessment and Plan (1) Acute hypoxic respiratory failure: Status: Acute (2) Pneumonia: Qualifiers: Pneumonia type: due to unspecified organism Laterality: right Lung location: lower lobe of lung Qualified Code(s): J18.9 - Pneumonia, unspecified organism Status: Acute (3) Pleural effusion: Status: Acute (4) Adenocarcinoma of lung: Qualifiers: Laterality: right Qualified Code(s): C34.91 - Malignant neoplasm of unspecified part of right bronchus or lung Status: Acute Plan continue abx to complete 8-10 days Diuresis as tolerated Oxygen to keep pox>90% Likely will be discharged on PO abx and oxygen. Will need outpt f/u with serial CXR to monitor right sided pleural effusion. If it worsens will need a repeat thoracentesis in order to send for analysis due to know if it malignant or parapneumonic. My suspicion is that this is a malignant process in view of his worsening PET can in 10/2023 Procedures Date of Service Date of Service: 12/26/23
[2023-12-26] MEDS: hydroCHLOROthiazide 12.5 MG TABLET PO (10:00)
[2023-12-26] MEDS: Docusate Sodium 100 MG CAPSULE PO ×2 (10:00→20:48)
[2023-12-26] MEDS: Primidone 50 MG TABLET 250 MG PO ×2 (10:00→20:48)
[2023-12-26] MEDS: polyethylene glycoL 3350 17 GM POWD.PACK PO (10:00)
[2023-12-26] MEDS: Propranolol HCL LA 80 MG CAP.SA.24H PO (10:01)
[2023-12-26] MEDS: Buprenorphine/Naloxone 8/2 mg FILM 1 FILM SUBLINGUAL ×3 (10:01→20:54)
[2023-12-26] MEDS: bisacodyL 5 MG TABLET.DR 10 MG PO ×2 (10:01→20:48)
[2023-12-26] MEDS: Furosemide 40 MG/4 ML VIAL IVPUSH (10:01)
[2023-12-26] MEDS: 0.9 % Sodium Chloride Flush 3 ML SYRINGE IVFLUSH ×3 (10:02→20:49)
[2023-12-26] MEDS: Acetaminophen 325 MG TABLET 650 MG PO (10:09)
--- NOTE | 2023-12-26 14:12 | P.PNIM_ITS ---
Subjective Subjective Date of Service: 12/26/23 Interval History: seen and examined this morning Patient on 2 L supplemental oxygen. No acute nursing events overnight. Review of Systems Denies any recent fever chills or decrease in appetite respiratory denies any shortness of breath or cough cardiovascular denies chest pain gastrointestinal denies any dysphagia abdominal pain nausea vomiting or diarrhea genitourinary denies any dysuria frequency or hematuria musculoskeletal denies any joint pain or swelling neuropsych denies any weakness or seizures all other systems reviewed are negative Constitutional Constitutional: Denies chills and Denies fever(s) Cardiovascular Cardiovascular: Denies chest pain, Denies palpitations and Reports dyspnea on exertion Respiratory Respiratory: Reports cough and Reports dyspnea on exertion Gastrointestinal Gastrointestinal: Denies abdominal pain Endocrine Endocrine: Denies palpitations Physical Exam 2 Vital Signs: Vital Signs: Last Vital Signs Temp 97.0 F 12/26/23 10:53 Pulse 64 12/26/23 10:53 Resp 18 12/26/23 10:53 BP 116/62 12/26/23 10:53 Pulse Ox 99 12/26/23 10:53 O2 Del Method Nasal Cannula 12/26/23 10:53 O2 Flow Rate 4 12/26/23 10:53 Oxygen Flow Rate 3 12/20/23 11:25 BMI result Body Mass Index 22.1 Appearing in no acute distress lung sounds are clear to auscultation heart regular rate rhythm, clear S1, S2 positive bowel sounds, abdomen is soft, nontender neuro patient is alert x3, no focal deficits Objective Data Active Medications Acetaminophen (Acetaminophen 325 Mg Tablet) 650 mg PO Q6H PRN PRN Reason: Pain, Mild (Pain Scale 1-3) Last Admin: 12/26/23 10:09 Dose: 650 mg Documented By: OLIVER Atorvastatin Calcium (Atorvastatin Calcium 10 Mg Tablet) 10 mg PO BEDTIME [facility] Last Admin: 12/25/23 21:32 Dose: 10 mg Documented By: ALEJANDRA Bisacodyl (Bisacodyl 5 Mg Tablet.Dr) 10 mg PO BID [facility] Last Admin: 12/26/23 10:01 Dose: 10 mg Documented By: LOIVER Buprenorphine/Naloxone (Buprenorphine/Naloxone 8/2 Mg Film) 1 film SUBLINGUAL TID [facility] Last Admin: 12/26/23 10:01 Dose: 1 film Documented By: OLIVER Divalproex Sodium (Divalproex Sodium Er 500 Mg Tab.Er.24h) 1,000 mg PO BEDTIME [facility] Last Admin: 12/25/23 21:32 Dose: 1,000 mg Documented By: ALEJANDRA Docusate Sodium (Docusate Sodium 100 Mg Capsule) 100 mg PO BID [facility] Last Admin: 12/26/23 10:00 Dose: 100 mg Documented By: OLIVER Enoxaparin Sodium (Enoxaparin Sodium 40 Mg/0.4 Ml Syringe) 40 mg SUBCUT Q24H [facility] Last Admin: 12/25/23 18:28 Dose: 40 mg Documented By: OLIVER Furosemide (Furosemide 40 Mg Tablet) 40 mg PO DAILY [facility]; Protocol Last Admin: 12/25/23 09:03 Dose: 40 mg Documented By: OLIVER Guaifenesin (Guaifenesin 100 Mg/5 Ml Liquid) 5 ml PO Q4H PRN PRN Reason: Cough Last Admin: 12/24/23 20:45 Dose: 5 ml Documented By: JUAN RAMON Hydrochlorothiazide (Hydrochlorothiazide 12.5 Mg Tablet) 12.5 mg PO DAILY [facility]; Protocol Last Admin: 12/26/23 10:00 Dose: 12.5 mg Documented By: OLIVER Hydroxyzine HCl (Hydroxyzine Hcl 50 Mg Tablet) 50 mg PO DAILY@1800 [facility] Last Admin: 12/25/23 18:28 Dose: 50 mg Documented By: OLIVER Hydroxyzine HCl (Hydroxyzine Hcl 25 Mg Tablet) 25 mg PO DAILY PRN PRN Reason: Anxiety Ceftriaxone Sodium 1 gm/ (Sodium Chloride) 50 mls @ 100 mls/hr IV Q24H [facility] Last Infusion: 12/25/23 16:20 Dose: Infused Documented By: OLIVER Azithromycin 500 mg/ Sodium (Chloride) 250 mls @ 125 mls/hr IV Q24H [facility] Last Infusion: 12/25/23 18:31 Dose: Infused Documented By: OLIVER Levothyroxine Sodium (Levothyroxine Sodium 200 Mcg Tablet) 200 mcg PO DAILY@0600 [facility] Last Admin: 12/26/23 08:02 Dose: 200 mcg Documented By: ALEJANDRA Olanzapine (Olanzapine 7.5 Mg Tablet) 15 mg PO BEDTIME [facility] Last Admin: 12/25/23 21:33 Dose: 15 mg Documented By: ALEJANDRA Polyethylene Glycol (Polyethylene Glycol 3350 17 Gm Powd.Pack) 17 gm PO DAILY [facility] Last Admin: 12/26/23 10:00 Dose: 17 gm Documented By: OLIVER Primidone (Primidone 50 Mg Tablet) 250 mg PO BID [facility] Last Admin: 12/26/23 10:00 Dose: 250 mg Documented By: OLIVER Propranolol HCl (Propranolol Hcl La 80 Mg Cap.Sa.24h) 80 mg PO DAILY [facility]; Protocol Last Admin: 12/26/23 10:01 Dose: 80 mg Documented By: OLIVER Sodium Chloride (0.9 % Sodium Chloride Flush 3 Ml Syringe) 3 ml IVFLUSH QSHIFT [facility] Last Admin: 12/26/23 10:02 Dose: 3 ml Documented By: OLIVER Sodium Chloride (Sodium Chloride 0.65 % Nasal 44 Ml Sprbtl) 1 spray NOSTRIL-B Q1H PRN PRN Reason: Dry Nasal Passages Tamsulosin HCl (Tamsulosin Hcl 0.4 Mg Capsule) 0.4 mg PO BEDTIME [facility] Last Admin: 12/25/23 21:32 Dose: 0.4 mg Documented By: ALEJANDRA Labs 12/25/23 06:10 12/26/23 08:57 Labs: Laboratory Results - last 24 hr 12/26/23 08:57 Anion Gap 14 Estim Creat Clear Calc 78.7 Estimated GFR > 60 Random Glucose 87 Calcium 9.3 B-Natriuretic Peptide 54 Microbiology Microbiology Results: Microbiology 12/20/23 15:57 Blood Culture - Final Blood - Venous No growth after 5 days. 12/20/23 15:57 Blood Culture - Final Blood - Venous No growth after 5 days. Assessment and Plan (1) Acute hypoxic respiratory failure: Status: Acute Plan 68 year old man with hx of right lung adenocarcinoma under the care of [facility] who was sent from the office with sob found to have pneumonia and right pleural effusion s/p thoracentesis Acute hypoxic respiratory failure secondary to Pleural effusion and post obstructive pneumonia Status post therapeutic thoracentesis 12/19 with removal of 450 mL of yellow fluid continue IV Rocephin and azithromycin, started 12/20 wean Supplemental oxygen as tolerated Cough suppressant as needed blood cx negative to date Pulmonology consultation> rec 8-10 days abx total, home o2 eval, serial cxr o/p to assess for reoccurring pleural effusion home o2 eval completed today>will need 2 liters o2 at home Urinary retention not new but pt never seen by urologist continue flomax bladder scan Qshift, st cath as needed for >400 constipation. Resolved miralax bisacodyl Transaminitis possibly related to chemotherapy tx trending down Metastatic lung Adenocarcinoma diagnosed 2021 Currently under going treatment with Dr. Lewis, last chemo 11/29 Hypothyroidism Continue levothyroxine Hyperlipidemia Continue statin HTN resume HCTZ, propranolol, lasix pt on high dose long acting propranolol confirmed prescription. pt bradycardia, will decrease dose and follow HR mild Protein calorie malnutrition. BMI 22.1 Add ensure to diet mood continue home meds remote h/o OUD continue suboxone DVT prophylaxis with Lovenox Attending Dr. Ochoa Full code Requires ongoing inpatient stay for hypoxic respiratory failure secondary to pleural effusion and pneumonia requiring IV antibiotics and close monitoring of oxygenation, due to patient's history of adenocarcinoma this should not be done at a lesser acute setting due to risk for decompensation Quality Stroke Does the patient have a stroke diagnosis?: No VTE Prior VTE?: No VTE Risk Level:: Medical - moderate - high VTE Device Contraindication: Treatment Not Indicated VTE Drug Contraindication: N/A - Med Ordered
[2023-12-26] MEDS: cefTRIAXone sodium 1 GM in 0.9 % Sodium Chloride 50 ML IV (16:19)
[2023-12-26] MEDS: Azithromycin 500 MG in 0.9 % Sodium Chloride 250 ML 125 MG IV (17:00)
[2023-12-26] MEDS: Enoxaparin Sodium 40 MG/0.4 ML SYRINGE SUBCUT (17:45)
[2023-12-26] MEDS: hydrOXYzine HCL 50 MG TABLET PO (17:45)
[2023-12-26] MEDS: OLANZapine 7.5 MG TABLET 15 MG PO (20:47)
[2023-12-26] MEDS: Tamsulosin HCL 0.4 MG CAPSULE PO (20:48)
[2023-12-26] MEDS: Divalproex Sodium ER 500 MG TAB.ER.24H 1000 MG PO (20:48)
[2023-12-26] MEDS: Atorvastatin Calcium 10 MG TABLET PO (20:48)
[2023-12-27] VITALS: BP 129/58; PULSE 61; RESP 18; TEMP 36.6; O2SAT 99
[2023-12-27 03:28] VITALS: BP 111/55; PULSE 57; RESP 18; TEMP 36.8; O2SAT 95
[2023-12-27] MEDS: Levothyroxine Sodium 200 MCG TABLET PO (06:04)
[2023-12-27 06:58] VITALS: BP 136/63; PULSE 60; RESP 18; TEMP 36.9; O2SAT 99
[2023-12-27] MEDS: Propranolol HCL LA 80 MG CAP.SA.24H PO (09:21)
[2023-12-27] MEDS: Buprenorphine/Naloxone 8/2 mg FILM 1 FILM SUBLINGUAL (09:22)
[2023-12-27] MEDS: Primidone 50 MG TABLET 250 MG PO (09:22)
[2023-12-27] MEDS: hydroCHLOROthiazide 12.5 MG TABLET PO (09:22)
[2023-12-27] MEDS: 0.9 % Sodium Chloride Flush 3 ML SYRINGE IVFLUSH (09:23)
--- NOTE | 2023-12-27 10:21 | PM.HEMONCPN ---
Medical Summary - Medical Summary Date of Service: 12/27/23 Chief complaint: Shortness of breath Primary Care Provider: Anastasiya Gimenez MD Medical Summary: Diagnosis: Right lung adenocarcinoma, moderately to poorly differentiated 03/2022 He presented with more than 30 lb weight loss, cough and shortness of breath to the emergency department. CT chest revealed right paratracheal mass measuring 3.1 x 2.6 x 3.8 cm. He has chronic hypothyroidism and proptosis of right eye. He had bronchoscopy and biopsy of right paratracheal mass on 04/14/2022 which revealed adenocarcinoma, moderate to poorly differentiated. Next generation sequencing showed negativity for EGFR, ALK, ROS1 and RET rearrangements. MET amplification not detected. PTEN gene deletion detected with polysomy 10. MSI stable HER2 2+ (equivocal), PDL1 22C3 TPS1%. Tumor mutational burden high, jimenes-TRK not expressed. PET-CT performed 05/03/2022 showed FDG avid right paratracheal, subcarinal masses with SUV 11.4-9.5. Right adrenal FDG avid 1.5 cm nodule met with SUV 5.3 highly suggestive of metastatic disease. Intense FDG avid 2 cm right-sided mesorectal solid mass with SUV 9.5. Metastatic lymph node versus exophytic primary neoplasm. Brain MRI showed 2 subcentimeter enhancing nodules in the right cerebellar vermis. Patient was having headaches. He was started on dexamethasone 2 mg p.o. b.i.d.. 04/21/2022. He started carboplatin/pemetrexed with pembrolizumab in the palliative setting from 05/10/2022. He completed 6 cycles of induction regimen. PET scan on 08/09/2022 showed partial metabolic response at previously documented FDG avid right paratracheal mass and subcarinal soft tissue mass. Partial response in right adrenal metastatic disease and complete metabolic response in 2 cm right-sided FDG avid mesorectal mass near large bowel. He was now on second-line chemotherapy with docetaxel 75 mg/m2 and ramucirumab 10mg/kg every 3 weeks started on 01/17/2023. Repeat PET-CT in May 2023 has shown excellent response to treatment. Interval History Interval history: He is feeling better today. He has been advised home oxygen that is being set up. He denies any chest pain, fever or chills. Review of Systems - Neurologic Reports abnormal gait, Reports numbness, Denies sensory deficit [facility] Medical History: Medical History (Last Reviewed 12/22/23 @ 10:57 by Meenu Fournier PT) Dysphagia Graves' orbitopathy Hypothyroidism Maintenance chemotherapy following disease Smoker Wound dehiscence, surgical Family History: Family History (Last Reviewed 12/20/23 @ 12:57 by Shawn Monreal MD) Father Diabetes mellitus Mother Alzheimer disease Surgical History: Surgical History (Last Reviewed 12/22/23 @ 10:57 by Meenu Fournier, PT) History of bronchoscopy History of esophagogastroduodenoscopy (EGD) Hx of cataract surgery Hx of colonoscopy Lung cancer Social History: Social History (Last Reviewed 12/20/23 @ 12:57 by Shawn Monreal MD) Living Situation History: Household Members: Children Housing: House Are you a primary patient care technician to a significant other at home: No Do you presently have visiting nurse or other home services: No Do you presently have visiting nurse or other home services comment: No VNA but son is [employer] Tobacco History: Patient Tobacco Use Status: Former Tobacco user Tobacco use type: Cigarette Smoke Quit Date: quit 1 month ago e-Cigarette/Vaping Use: Currently Using Second Hand Smoke Exposure: No Substance Use History: Substance Use Type: Marijuana Occupation Assessmet: service: No Current occupational status: disabled Home Medications and Allergies Current Medications: Current Medications Acetaminophen (Acetaminophen 325 Mg Tablet) 650 mg PO Q6H PRN PRN Reason: Pain, Mild (Pain Scale 1-3) Last Admin: 12/26/23 10:09 Dose: 650 mg Atorvastatin Calcium (Atorvastatin Calcium 10 Mg Tablet) 10 mg PO BEDTIME [facility] Last Admin: 12/26/23 20:48 Dose: 10 mg Bisacodyl (Bisacodyl 5 Mg Tablet.Dr) 10 mg PO BID [facility] Last Admin: 12/27/23 09:23 Dose: Not Given Buprenorphine/Naloxone (Buprenorphine/Naloxone 8/2 Mg Film) 1 film SUBLINGUAL TID [facility] Last Admin: 12/27/23 09:22 Dose: 1 film Divalproex Sodium (Divalproex Sodium Er 500 Mg Tab.Er.24h) 1,000 mg PO BEDTIME [facility] Last Admin: 12/26/23 20:48 Dose: 1,000 mg Docusate Sodium (Docusate Sodium 100 Mg Capsule) 100 mg PO BID [facility] Last Admin: 12/27/23 09:22 Dose: Not Given Enoxaparin Sodium (Enoxaparin Sodium 40 Mg/0.4 Ml Syringe) 40 mg SUBCUT Q24H [facility] Last Admin: 12/26/23 17:45 Dose: 40 mg Furosemide (Furosemide 40 Mg Tablet) 40 mg PO DAILY [facility]; Protocol Last Admin: 12/25/23 09:03 Dose: 40 mg Guaifenesin (Guaifenesin 100 Mg/5 Ml Liquid) 5 ml PO Q4H PRN PRN Reason: Cough Last Admin: 12/24/23 20:45 Dose: 5 ml Hydrochlorothiazide (Hydrochlorothiazide 12.5 Mg Tablet) 12.5 mg PO DAILY [facility]; Protocol Last Admin: 12/27/23 09:22 Dose: 12.5 mg Hydroxyzine HCl (Hydroxyzine Hcl 50 Mg Tablet) 50 mg PO DAILY@1800 [facility] Last Admin: 12/26/23 17:45 Dose: 50 mg Hydroxyzine HCl (Hydroxyzine Hcl 25 Mg Tablet) 25 mg PO DAILY PRN PRN Reason: Anxiety Ceftriaxone Sodium 1 gm/ (Sodium Chloride) 50 mls @ 100 mls/hr IV Q24H [facility] Last Infusion: 12/26/23 17:07 Dose: Infused Azithromycin 500 mg/ Sodium (Chloride) 250 mls @ 125 mls/hr IV Q24H [facility] Last Infusion: 12/26/23 19:22 Dose: Infused Levothyroxine Sodium (Levothyroxine Sodium 200 Mcg Tablet) 200 mcg PO DAILY@0600 [facility] Last Admin: 12/27/23 06:04 Dose: 200 mcg Olanzapine (Olanzapine 7.5 Mg Tablet) 15 mg PO BEDTIME [facility] Last Admin: 12/26/23 20:47 Dose: 15 mg Polyethylene Glycol (Polyethylene Glycol 3350 17 Gm Powd.Pack) 17 gm PO DAILY [facility] Last Admin: 12/27/23 09:23 Dose: Not Given Primidone (Primidone 50 Mg Tablet) 250 mg PO BID [facility] Last Admin: 12/27/23 09:22 Dose: 250 mg Propranolol HCl (Propranolol Hcl La 80 Mg Cap.Sa.24h) 80 mg PO DAILY [facility]; Protocol Last Admin: 12/27/23 09:21 Dose: 80 mg Sodium Chloride (0.9 % Sodium Chloride Flush 3 Ml Syringe) 3 ml IVFLUSH QSHIFT [facility] Last Admin: 12/27/23 09:23 Dose: 3 ml Sodium Chloride (Sodium Chloride 0.65 % Nasal 44 Ml Sprbtl) 1 spray NOSTRIL-B Q1H PRN PRN Reason: Dry Nasal Passages Tamsulosin HCl (Tamsulosin Hcl 0.4 Mg Capsule) 0.4 mg PO BEDTIME [facility] Last Admin: 12/26/23 20:48 Dose: 0.4 mg Home Medications Medication Instructions Recorded Confirmed Type buprenorphine 8 mg-naloxone 2 mg 1 film sublingual TID 01/08/21 12/20/23 History sublingual film divalproex 500 mg tablet,extended 1,000 mg PO BEDTIME 01/08/21 12/20/23 History release 24 hr hydrochlorothiazide 12.5 mg capsule 12.5 mg PO DAILY 01/08/21 12/20/23 History hydroxyzine HCl 25 mg tablet 50 mg PO DAILY@1800 Anxiety 01/08/21 12/20/23 History primidone 250 mg tablet 250 mg PO BID 01/08/21 12/20/23 History propranolol 160 mg capsule,24 160 mg PO BID 01/08/21 12/20/23 History hr,extended release olanzapine 15 mg tablet 1 tab PO BEDTIME 04/04/22 12/20/23 History simvastatin 20 mg tablet 20 mg PO BEDTIME 06/05/23 12/20/23 History hydroxyzine HCl 25 mg tablet 25 mg PO DAILY PRN Anxiety 12/20/23 12/20/23 History tramadol 50 mg tablet 50 mg PO BID Pain 12/20/23 12/20/23 History Allergies Allergy/AdvReac Type Severity Reaction Status Date / Time No Known Allergies Allergy Verified 09/12/23 11:58 [No Known Allergies*] Exam Vital signs: Vital Signs Temp 98.4 F 12/27/23 06:58 Pulse 60 12/27/23 06:58 Resp 18 12/27/23 06:58 BP 136/63 12/27/23 06:58 Pulse Ox 99 12/27/23 06:58 O2 Del Method Nasal Cannula 12/27/23 06:58 O2 Flow Rate 4 12/27/23 06:58 Intake & Output 12/26/23 12/27/23 12/27/23 18:59 06:59 18:59 Intake Total 550 / 900 350 / 900 Output Total 230 / 230 300 / 300 Balance 320 / 670 350 / 670 -300 / -300 Urine Output (Average ml/kg/hr) 0.34 0.34 0.44 Intake: Intake, Oral Amount 500 / 600 100 / 600 Intake, IV Amount 50 / 300 250 / 300 Azithromycin 500 mg In 0.9 % 250 / 250 Sodium Chloride 250 ml @ 125 mls/hr IV Q24H [facility] Rx#: [id number] cefTRIAXone sodium 1 gm In 0.9 50 / 50 % Sodium Chloride 50 ml @ 100 mls/hr IV Q24H [facility] Rx#: [id number] Output: Output, Urine Amount 230 / 230 300 / 300 Other: Breakfast % Eaten 100% Lunch % Eaten 100% Number of Unmeasured Voids 2 1 Number of Bowel Movements 2 1 Urine Bathroom Bathroom Urine Color Yellow Yellow Last Bowel Movement 12/26/23 12/26/23 Stool Bathroom Bathroom Stool Amount Large Moderate Stool Color Brown Dark Brown Stool Consistency Loose Semi Formed Weight 56.7 kg BMI result Body Mass Index 22.1 - Constitutional Present: no acute distress - Routine HEENT Exam Eye: Present: EOMI - Routine Respiratory Exam Absent: accessory muscle use - Routine Cardiovascular Exam Cardiovascular: Present: S1, S2 - Routine Abdominal Exam Present: soft Data - Labs CBC & Chem 7: 12/25/23 06:10 12/26/23 08:57 Labs: Laboratory Last Values WBC 5.7 X10*3/uL (4.8-10.8) 12/25/23 06:10 RBC 3.65 X10*6/uL (4.60-5.80) L 12/25/23 06:10 Hgb 9.4 g/dl (14.0-18.0) L 12/25/23 06:10 Hct 29.6 % (42.0-52.0) L 12/25/23 06:10 MCV 81.1 fL (80.0-98.0) 12/25/23 06:10 MCH 25.8 pg (27.0-33.0) L 12/25/23 06:10 MCHC 31.8 g/dl (31.0-36.0) 12/25/23 06:10 RDW 19.2 % (11.0-16.0) H 12/25/23 06:10 Plt Count 421 X10*3/uL (160-400) H 12/25/23 06:10 MPV 8.9 fL (9.4-12.4) L 12/25/23 06:10 Immature Gran % (Auto) 2.8 % (0.0-0.4) H 12/25/23 06:10 Neut % (Auto) 50.0 % (45-73) 12/25/23 06:10 Lymph % (Auto) 22.7 % (20-40) 12/25/23 06:10 Smith % (Auto) 14.0 % (2-11) H 12/25/23 06:10 Eos % (Auto) 9.8 % (0-4) H 12/25/23 06:10 Baso % (Auto) 0.7 % (0-2) 12/25/23 06:10 Lymph # (Auto) 1.3 X10*3/uL (1.2-4.9) 12/25/23 06:10 Smith # (Auto) 0.8 X10*3/uL (0.1-1.2) 12/25/23 06:10 Eos # (Auto) 0.6 X10*3/uL (0.0-0.4) H 12/25/23 06:10 Baso # (Auto) 0.0 X10*3/uL (0.0-0.2) 12/25/23 06:10 Abs Immat Gran (auto) 0.16 X10*3/uL (0.00-0.03) H 12/25/23 06:10 Absolute Neuts (auto) 2.9 x10*3/uL (2.0-8.3) 12/25/23 06:10 Absolute Nucleated RBC 0.000 X10*3/uL (0.0-0.012) 12/25/23 06:10 Nucleated RBC % (auto) 0.0 /100WBC (0.0-0.2) 12/25/23 06:10 Hold Purple Top SEE NOTE 12/23/23 05:43 PT 14.6 SEC (11.1-13.3) H 12/20/23 11:50 INR 1.2 (0.9-1.1) H 12/20/23 11:50 APTT 35.7 SEC (26.0-36.8) 12/20/23 11:50 Hold Blue Top SEE NOTE 12/20/23 11:50 Sodium 136 mmol/L (135-145) 12/26/23 08:57 Potassium 3.7 mmol/L (3.3-5.1) 12/26/23 08:57 Chloride 97 mmol/L (96-108) 12/26/23 08:57 Carbon Dioxide 29 mmol/L (22-29) 12/26/23 08:57 Anion Gap 14 (12-20) 12/26/23 08:57 BUN 19 mg/dL (9-16) H 12/26/23 08:57 Creatinine 0.74 mg/dL (0.5-1.4) 12/26/23 08:57 Estim Creat Clear Calc 78.7 12/26/23 08:57 Estimated GFR > 60 12/26/23 08:57 POC Glucose 125 mg/dL (60-115) H 12/20/23 20:49 Random Glucose 87 mg/dL (60-115) 12/26/23 08:57 Calcium 9.3 mg/dL (8.4-10.2) 12/26/23 08:57 Magnesium 1.8 mg/dL (1.6-2.6) 12/21/23 05:16 Total Bilirubin 0.1 mg/dL (0.0-1.0) 12/25/23 06:10 Direct Bilirubin < 0.2 mg/dL (0.0-0.5) 12/23/23 05:43 AST 50 U/L (5-37) H 12/25/23 06:10 ALT 81 U/L (0-40) H 12/25/23 06:10 Alkaline Phosphatase 136 U/L (39-117) H 12/25/23 06:10 B-Natriuretic Peptide 54 pg/mL (<100) 12/26/23 08:57 Total Protein 6.3 g/dL (6.5-8.0) L 12/25/23 06:10 Albumin 2.9 g/dL (3.5-5.0) L 12/25/23 06:10 Procalcitonin 0.08 ng/mL 12/21/23 05:16 - Imaging Radiologist's impression: ITS Impressions Thoracentesis Ultrasound 12/20/23 14:00 Impression: Ultrasound-guided right thoracentesis Chest X-Ray 12/20/23 14:02 IMPRESSION: Decreasing right pleural effusion status post thoracentesis. No postprocedural pneumothorax. Increasing left hemithorax markings, possibly pulmonary edema versus worsening pneumonia. Chest X-Ray 12/25/23 10:55 IMPRESSION: * The hazy, reticular opacity in the left lung requires clinical correlation, and this is not significantly changed compared to 12/20/2023. This could represent pneumonia if in the right clinical context. * Small right pleural effusion is present. This has increased compared to 12/20/2023 (but remains smaller compared to 12/15/2023). Assessment and Plan Patient Active problem list reviewed?: Yes (1) Adenocarcinoma of lung Problem details: Chemo every 3 weeks Status: Acute Assessment and plan: 1. This is a 68-year-old man who has been diagnosed with metastatic lung adenocarcinoma. He had bronchoscopy and biopsy of right paratracheal mass on 04/14/2022 which revealed adenocarcinoma, moderate to poorly differentiated. Next generation sequencing showed negativity for EGFR, ALK, ROS1 and RET rearrangements. MET amplification not detected. PTEN gene deletion detected with polysomy 10. MSI stable HER2 2+ (equivocal), PDL1 22C3 TPS1%. Tumor mutational burden high, jimenes-TRK not expressed. He started carboplatin/pemetrexed with pembrolizumab in the palliative setting from 05/10/2022. He was now on second-line chemotherapy with docetaxel 75 mg/m2 and ramucirumab 10mg/kg every 3 weeks started on 01/17/2023. He developed right pleural effusion for which he underwent thoracentesis on 12/20/2023. He was supposed to start gemcitabine in the 3rd line setting this week but because of hypoxemia and pleural effusion he was referred to emergency department. Chest x-ray showed worsening pneumonia. He was seen by Pulmonary and recommended 8-10 days of antibiotics. He is going to be discharged on home O2. Serial chest x-ray to monitor for recurrent pleural effusion. He was advised to follow-up in oncology clinic next week. Thank you. - Time Spent With Patient Time Spent with Patient (in minutes): 15
[2023-12-27 10:50] VITALS: BP 140/65; PULSE 57; RESP 18; TEMP 36.3; O2SAT 100
--- NOTE | 2023-12-27 11:41 | PM.DS ---
DS: Providers Provider Date of Service: 12/27/23 Date of admission: 12/20/23 16:39 Date of discharge: 12/27/23 Primary care physician: Anastasiya Gimenez MD Consults: 12/20/23 16:42 Consult to Hematology / Oncology Routine Consulting Provider: Bre Lewis Reason for consultation: pleural effusion, PNA 12/25/23 14:42 Consult to Pulmonology Routine Consulting Provider: [facility] Pulmonology Services Reason for consultation: sob, Left lung changes DS: Diagnosis Discharge Diagnosis (1) Acute hypoxic respiratory failure: Status: Acute (2) Pneumonia: Status: Acute (3) Adenocarcinoma of lung: Status: Acute DS: Summary Hospital Course Hospital Course: 68-year-old man with history of right lung adenocarcinoma seen by his oncologist today and sent to the ER due to shortness of breath. Patient and his son reported that he has been having shortness of breath over the last week, progressive and feeling of fatigue. He denied chest pain, nausea, vomiting, diarrhea, fever, chills, recent travel, recent illness. Patient underwent thoracentesis in the ER with 450 mL of yellow fluid removed, post pneumothorax x-ray showing possible pulmonary edema versus worsening pneumonia. Patient requiring 2 L of oxygen, labs within acceptable limits, noted transaminitis. He received a dose of Rocephin in the ER. He will be admitted for further management and treatment of acute hypoxic respiratory failure secondary to pleural effusion and postobstructive pneumonia. Hospital Course Patient admitted to general medical floor and started on ceftriaxone/.azithromycin. Continued to improve over the course of hospitalization. Found to have oxygen requirement on the day of the charge will be sent home with portable O2. He was seen in consultation by Oncology and they will follow him up as an outpatient. On the day of discharge she is medically acceptable for same Time Attestation Discharge Coordination Time (in mins): 35 Quality: Safe Use of Opioids Does Pt have an Active Cancer Diagnosis on the Problem List?: Yes Opioid Measure Date for [facility] Report: 11/27/23 Opioid Measure Time for CMS Report: 11:50 Quality: Stroke Does the patient have a stroke diagnosis?: No Physical Exam Vital Signs: Vital Signs: Last Vital Signs Temp 97.4 F 12/27/23 10:50 Pulse 57 12/27/23 10:50 Resp 18 12/27/23 10:50 BP 140/65 H 12/27/23 10:50 Pulse Ox 100 12/27/23 10:50 O2 Del Method Nasal Cannula 12/27/23 10:50 O2 Flow Rate 3 12/27/23 10:50 Oxygen Flow Rate 3 12/20/23 11:25 BMI result Body Mass Index 22.1 Const: Other: No acute distress Resp: Other: Clear but diminished at bases Cardio: Other: No S4; positive S1-S2; no S3 murmurs rubs or gallops GI: Other: Soft nontender nondistended normoactive bowel sounds Extrem: Other: No edema bilaterally Discharge Plan Discharge Anticipated Discharge Date/Time: 12/27/23 11:32 Patient Disposition: Home Health Service Discharge Diagnosis: Pneumonia Referrals: [facility] [Outside] Anastasiya Gimenez MD [Primary Care Provider] - 1 Week Discharge Medications: New cefuroxime axetil 500 mg tablet 500 mg PO BID 7 Days Qty: 14 0RF Continued levothyroxine 200 mcg tablet 200 mcg PO DAILY Qty: 90 4RF ondansetron 8 mg Tablet,Disintegrating 8 mg PO Q8H PRN (Reason: Nausea) Qty: 60 1RF olanzapine 15 mg tablet 1 tab PO BEDTIME furosemide 20 mg tablet 40 mg PO DAILY 30 Days Qty: 60 0RF albuterol sulfate 90 mcg/actuation HFA aerosol inhaler 2 puff inhalation Q4-6H PRN (Reason: shortness of breath or wheezing) Qty: 8.5 0RF tramadol 50 mg tablet 50 mg PO BID hydroxyzine HCl 25 mg tablet 25 mg PO DAILY PRN (Reason: Anxiety) hydrochlorothiazide 12.5 mg capsule 12.5 mg PO DAILY divalproex 500 mg tablet extended release 24 hr 1,000 mg PO BEDTIME primidone 250 mg tablet 250 mg PO BID propranolol 160 mg capsule,extended release 24 hr 160 mg PO BID hydroxyzine HCl 25 mg tablet 50 mg PO DAILY@1800 buprenorphine-naloxone 8-2 mg film 1 film sublingual TID simvastatin 20 mg tablet 20 mg PO BEDTIME Discharge Orders: Discharge Order (Routine); Ordered 12/27/23 Ordered By: Diogo Hannah Diet: Advance to usual diet Activity on Discharge: As tolerated Stand Alone Forms: Patient Portal Discharge page Care Plan Goals: Resume all medications as taken prior to hospital Health Concerns: Follow-up with PCP next available and Dr. Lewis as outpatient Plan of Treatment: Ceftin has been added to your regimen. 500 mg twice daily for 7 days. The oxygen company will meet you at home with oxygen and the visiting nurse will come in to check your oxygen levels periodically Assessment: See discharge summary
--- NOTE | 2023-12-27 11:51 | W.MHC.F2F ---
Service Date Service Date: 12/27/23 Encounter Date of encounter: 12/27/23 Encounter: Acute hospitalization Reasons for Services Signs and symptoms assessed: MCFP to monitor oxygenation and physical therapy to increase strength Reason for fpc: medication management, teach disease management and other (Monitoring O2 sats) Reason for physical therapy: home safety and mobility, therapeutic exercises and gait/transfer training Homebound: Leaving the home is medically contraindicated at this time without the asist of a device and/or another person due th the listed conditions above and below. Reason homebound: unsteady gait / fall risk and unable to drive Certification: Based on the above findings, I certify that this patient is confined to the home and needs intermittent fpc care, physical therapy and/or speech therapy, or continues to need occupational therapy. The patient is under my care, and I have initiated the establishment of the plan of care. The patient will be followed by a physician who will periodically review the plan of care. Time Spent With Patient Time: Total time managing care of this patient today ____ minutes.
--- NOTE | 2023-12-27 13:21 | MHC.CM.PN ---
Second IMM 12/26. Pt is medically cleared for D/C home with new HVNA and home O2. Pts son/HCP Ketan will transport him home.
== END 2023-12-27 14:38 | disposition home health service (06) | DRG 193 ==
LOC: HO.ED 15:21 → HO.EDOVER 16:46 → HO.IMC 12-21 07:51
PROVIDERS: Physician Assistant Medical; Student in an Organized Health Care Education/Training Program; Admitting Provider Nurse Practitioner Acute Care; Emergency Provider Emergency Medicine; PCP Student in an Organized Health Care Education/Training Program; Visit Provider Hospitalist
PROC: 0W993ZZ Drainage of Right Pleural Cavity, Percutaneous Approach (ICD-10-PCS; principal; 2023-12-20 13:30)
DX: J18.9 Pneumonia, unspecified organism (principal); J96.01 Acute respiratory failure with hypoxia; F11.20 Opioid dependence, uncomplicated; E44.1 Mild protein-calorie malnutrition; C34.91 Malignant neoplasm of unspecified part of right bronchus or lung; C79.71 Secondary malignant neoplasm of right adrenal gland; J91.0 Malignant pleural effusion; T45.1X5A Adverse effect of antineoplastic and immunosuppressive drugs, initial encounter; R74.01 Elevation of levels of liver transaminase levels; K59.00 Constipation, unspecified; R33.9 Retention of urine, unspecified; I10 Essential (primary) hypertension; E03.9 Hypothyroidism, unspecified; Z68.22 Body mass index [BMI] 22.0-22.9, adult; E78.5 Hyperlipidemia, unspecified; Z87.891 Personal history of nicotine dependence; Z79.890 Hormone replacement therapy; Z79.899 Other long term (current) drug therapy
CPT/HCPCS: 32555; 36415; 71045; 80048; 80053; 80076; 82947; 83735; 83880; 84145; 85025; 85610; 85730; 87040; 97116; 97162; 99285; J0456; J0696; J1650; J1940

== ENCOUNTER → 2023-12-20 13:30 | Outpatient (BNV) | payer OTHER, SELFPAY | PROVIDERS: Emergency Provider Emergency Medicine; PCP Student in an Organized Health Care Education/Training Program; Visit Provider Physician Assistant Surgical | DX: J90 Pleural effusion, not elsewhere classified (principal); C34.90 Malignant neoplasm of unspecified part of unspecified bronchus or lung | CPT/HCPCS: 32555 ==

== ENCOUNTER → 2023-12-20 16:39 | Outpatient (BNV) | payer OTHER, SELFPAY | PROVIDERS: Admitting Provider Nurse Practitioner Acute Care; Emergency Provider Emergency Medicine; PCP Student in an Organized Health Care Education/Training Program; Visit Provider Internal Medicine | DX: C34.90 Malignant neoplasm of unspecified part of unspecified bronchus or lung (principal); J90 Pleural effusion, not elsewhere classified; J18.9 Pneumonia, unspecified organism | CPT/HCPCS: 99222; 99231 ==

== ENCOUNTER → 2023-12-20 16:39 | Outpatient (BNV) | payer OTHER, SELFPAY | PROVIDERS: Admitting Provider Nurse Practitioner Acute Care; Emergency Provider Emergency Medicine; PCP Student in an Organized Health Care Education/Training Program; Visit Provider Hospitalist | DX: J96.01 Acute respiratory failure with hypoxia (principal); J18.9 Pneumonia, unspecified organism; J90 Pleural effusion, not elsewhere classified; C34.91 Malignant neoplasm of unspecified part of right bronchus or lung | CPT/HCPCS: 99223 ==

== ENCOUNTER → 2023-12-20 16:39 | Outpatient (BNV) | payer OTHER, SELFPAY | PROVIDERS: Admitting Provider Nurse Practitioner Acute Care; Emergency Provider Emergency Medicine; PCP Student in an Organized Health Care Education/Training Program; Visit Provider Nurse Practitioner Acute Care | DX: J96.01 Acute respiratory failure with hypoxia (principal); J90 Pleural effusion, not elsewhere classified; J18.9 Pneumonia, unspecified organism | CPT/HCPCS: 99223; 99232; 99233; 99239; G0180 ==

== ENCOUNTER 2024-02-28 12:13 | Outpatient (REF) | payer OTHER, SELFPAY ==
--- NOTE | ~2024-02-28 | XR_ITS ---
EXAMINATION: XR CHEST CLINICAL INFORMATION: Question recurrent right pleural effusion. COMPARISON: Chest radiograph dated 12/25/2023. TECHNIQUE: 2 views of the chest were obtained. FINDINGS: The left internal jugular vein chest port is unchanged in position. There is a small to moderate-sized right pleural effusion. There is subsegmental atelectasis at the right lung base. There is mildly improved aeration of the left lung. No left-sided pleural effusion. No pneumothorax. No acute osseous abnormality. XR/XR chest 2V IMPRESSION: The small to moderate size right pleural effusion appears similar to that seen on the 12/25/2023 chest radiograph. There is mildly improved aeration throughout the left lung.
== END 2024-02-28 12:14 | disposition home or self-care (01) ==
LOC: HO.XRAY 12:13
PROVIDERS: PCP Student in an Organized Health Care Education/Training Program; Visit Provider Internal Medicine
DX: C34.90 Malignant neoplasm of unspecified part of unspecified bronchus or lung (principal)
CPT/HCPCS: 71046

== ENCOUNTER 2024-06-19 11:25 | Emergency (ER) | payer OTHER, SELFPAY ==
[2024-06-19] VITALS (7 sets, daily range): BP systolic 101–130; BP diastolic 48–57; PULSE 44–56; RESP 10–13; O2SAT 6–100; BMI 21.4
--- NOTE | 2024-06-19 11:37 | ECG_ITS ---
Test Reason : WEAKNESS Blood Pressure : / mmHG Vent. Rate : 049 BPM Atrial Rate : 049 BPM P-R Int : 168 ms QRS Dur : 110 ms QT Int : 476 ms P-R-T Axes : 036 -16 002 degrees QTc Int : 429 ms Sinus bradycardia Low voltage QRS Nonspecific T wave abnormality Abnormal ECG When compared with ECG of 15-DEC-2023 17:26, QRS duration has increased Nonspecific T wave abnormality, worse in Inferior leads Nonspecific T wave abnormality now evident in Anterior leads Referred By: Luz Maria Bonilla Electronically Signed By:SREEKANTH COSTA
[2024-06-19 12:06] LABS: INTERNATIONAL NORM RATIO 1.1 (0.9-1.1); Prothrombin Time 13.3 SEC (11.1-13.3)
[2024-06-19 12:08] LABS: Partial Thromboplastin Time 34.9 SEC (26.0-36.8)
[2024-06-19 12:14] LABS: Hematocrit 23.7 % (42.0-52.0); Hemoglobin 7.8 g/dl (14.0-18.0); Mean Corpuscular HGB Conc 32.9 g/dl (31.0-36.0); Mean Corpuscular Hemoglobin 31.3 pg (27.0-33.0); Mean Corpuscular Volume 95.2 fL (80.0-98.0); Red Blood Count 2.49 X10*6/uL (4.60-5.80); Red Cell Distribution Width 22.2 % (11.0-16.0); White Blood Count 2.7 X10*3/uL (4.8-10.8)
[2024-06-19 12:18] LABS: Alanine Aminotransferase 13 U/L (0-40); Albumin Level 2.7 g/dL (3.5-5.0); Alkaline Phosphatase 93 U/L (39-117); Anion Gap 14 (12-20); Aspartate Amino Transferase 17 U/L (5-37); Bilirubin Direct 0.2 mg/dL (0.0-0.5); Bilirubin Total 0.3 mg/dL (0.0-1.0); Blood Urea Nitrogen 54 mg/dL (9-16); Calcium 8.5 mg/dL (8.4-10.2); Carbon Dioxide 29 mmol/L (22-29); Chloride 100 mmol/L (96-108); Estimated Glomerular Filt Rate 60; Glucose Random 114 mg/dL (60-115); Lipase 8 U/L (8-78); Magnesium 1.7 mg/dL (1.6-2.6); Sodium 140 mmol/L (135-145); Total Protein 5.9 g/dL (6.5-8.0)
[2024-06-19 12:22] LABS: NRBC Pct Auto 1.9 /100WBC (0.0-0.2)
[2024-06-19 12:28] LABS: Troponin-I High Sensitivity < 2.7 ng/L (<3.5-35.0)
[2024-06-19 12:38] LABS: Influenza A PCR NEGATIVE (Negative); Influenza B PCR NEGATIVE (Negative); Resp Syncy Virus RNA Qual PCR NEGATIVE (Negative); SARS COV2 PCR INHOUSE NEGATIVE (Negative)
[2024-06-19 12:49] LABS: Band Neutrophils Percent 2 % (3-5); Lymphocytes Absolute Manual 0.7 X10*3/uL (1.2-4.9); Lymphocytes Percent Manual 27 % (20-40); Metamyelocytes Absolute 0.1 X10*3/uL; Metamyelocytes Percent 3 %; Monocytes Absolute Manual 0.3 X10*3/uL (0.1-1.2); Monocytes Percent Manual 11 % (2-11); Myelocytes Absolute 0.1 X10*/uL; Myelocytes Percent 2 %; Neutrophils Absolute Manual 1.5 X10*3/uL (2.0-8.3); Neutrophils Percent Manual 55 % (45-73); Nucleated Red Blood Cells 3 /100WBC (0-0)
[2024-06-19 12:51] LABS: Macrocytosis 1+ (5-14) /OIF; Microcytosis 1+ (5-14) /OIF; Platelet Estimate DECREASED (NORMAL); RBC Morphology NOTED
[2024-06-19 12:52] LABS: Platelet Morphology Comment NORMAL
[2024-06-19 12:53] LABS: Mean Platelet Volume 10.2 fL (9.4-12.4); Platelet Count 96 X10*3/uL (160-400)
--- NOTE | 2024-06-19 12:57 | ED_ITS ---
HPI - Weakness General Chief complaint: Weakness Stated complaint: WEAK SINCE T-1,H/O LUNG CA PER EMS Time Seen by Provider: 06/19/24 11:58 Source: patient, family, EMS and old records reviewed Mode of arrival: EMS Limitations: no limitations History of Present Illness ED Provider: IVIS BURGOS Narrative: 68 yo male with PMH of hypothyroidism, dysphagia, metastatic lung adenocarcinoma with mets to brain, R pleural effusion s/p drain, R paratracheal nodes, R adrenal nodule last chemo treatment a week ago - he states he wants to stop chemo comes in with c/o increased weakness, falls, poor PO intact, nausea, lethargy. Family asking about placement and hospice. He states he is tired not eating or drinking has fallen and is not doing well. He states he just wants to stop MD Complaint: generalized weakness Onset (ago): week(s) Duration: progressively worsening Location: generalized Migration: none Severity: moderate Relieving factors: none Exacerbating factors: movement and exertion Context: recent illness Associated symptoms: loss of appetite Related Data Home Medications ?Medication ?Instructions ?Recorded ?Confirmed buprenorphine 8 mg-naloxone 2 mg 1 film sublingual TID 01/08/21 04/10/24 sublingual film divalproex 500 mg tablet,extended 1,000 mg PO BEDTIME 01/08/21 04/10/24 release 24 hr hydrochlorothiazide 12.5 mg capsule 12.5 mg PO DAILY 01/08/21 04/10/24 primidone 250 mg tablet 250 mg PO BID 01/08/21 04/10/24 propranolol 160 mg capsule,24 160 mg PO BID 01/08/21 04/10/24 hr,extended release olanzapine 15 mg tablet 1 tab PO BEDTIME 04/04/22 04/10/24 simvastatin 20 mg tablet 20 mg PO BEDTIME 06/05/23 04/10/24 hydroxyzine HCl 25 mg tablet 25 mg PO DAILY PRN Anxiety 12/20/23 04/10/24 tramadol 50 mg tablet 50 mg PO BID Pain 12/20/23 04/10/24 Previous Rx's ?Medication ?Instructions ?Recorded levothyroxine 200 mcg tablet 200 mcg PO DAILY #90 tabs 08/15/22 albuterol sulfate 90 mcg/actuation 2 puff inhalation Q4-6H PRN 12/15/23 aerosol inhaler shortness of breath or wheezing #8.5 grams lidocaine HCl 2 % mucosal solution 1 appl mucous membrane QID #300 mL 02/09/24 (Lidocaine Viscous) Magic Mouthwash 10 ml PO QID #240 mL 03/04/24 Diphen/Nystat/Antacid 1:1:1 240 mL suspension ondansetron 8 mg disintegrating 8 mg PO Q8H PRN Nausea #60 tabs 03/12/24 tablet ketotifen fumarate 0.025 % (0.035 1 drp ophthalmic (eye) Q8H #5 mL 04/10/24 %) eye drops (Zaditor) Magic Mouthwash 10 ml PO TID #240 mL 04/29/24 Diphen/Lido/Antacid 1:1:1 240 mL suspension furosemide 20 mg tablet 2 tab PO DAILY 90 days #180 caps 05/07/24 hydrocortisone 2.5 % lotion 1 appl topical QID #60 mL 05/07/24 Allergies Allergy/AdvReac Type Severity Reaction Status Date / Time No Known Allergies Allergy Verified 06/19/24 11:32 [No Known Allergies*] Review of Systems 2 Review of Systems: Constitutional : No Fever, No Chills, pos Fatigue, pos weakness, pos anorexia ENT/Mouth : No sore throat, No Rhinorrhea Eyes: No Eye Pain, No Swelling, No Redness Cardiovascular : No Chest Pain, No SOB, No Dyspnea on Exertion Respiratory : No Cough, No Sputum Gastrointestinal : pos Nausea, No Vomiting, No Diarrhea, No abdominal Pain Genitourinary : No Dysuria, No Urinary Frequency, No Hematuria, Musculoskeletal : No joint pain, pos Myalgias, No Joint Swelling Skin : No Skin Lesions, No rash Neuro : pos Weakness, No Numbness, No Dizziness, no Headache Psych : No Anxiety/Panic, No Depression All other systems reviewed and are negative PMFSH Past Medical History Attestation statement: The following information was validated with the patient. Source: old records reviewed Medical History Pneumonia Pleural effusion Adenocarcinoma of lung Wound dehiscence, surgical Maintenance chemotherapy following disease Dysphagia Smoker Graves' orbitopathy Hypothyroidism Surgical History History of bronchoscopy History of esophagogastroduodenoscopy (EGD) Hx of colonoscopy Lung cancer Hx of cataract surgery Family History Family History Father Diabetes mellitus Mother Alzheimer disease Social History Social History Household Members: Children Housing: House Are you a primary workforce investment act career manager to a significant other at home: No Do you presently have visiting nurse or other home services: No (No VNA but son is ABSORPTION PLANT OPERATOR) Alcohol intake: current Alcohol intake frequency: does not drink Patient Tobacco Use Status: Former Tobacco user Tobacco use type: Cigarette e-Cigarette/Vaping Use: Currently Using Second Hand Smoke Exposure: No Substance Use Type: Marijuana service: No Current occupational status: disabled Physical Exam 2 Vital Signs: Vital Signs: Last Vital Signs Pulse 44 L 06/19/24 14:28 Resp 10 L 06/19/24 14:28 BP 130/57 L 06/19/24 14:28 Pulse Ox 6 L 06/19/24 14:28 O2 Del Method Nasal Cannula 06/19/24 14:28 O2 Flow Rate 6 06/19/24 14:17 BMI result Body Mass Index 21.4 Appearance: Alert. Oriented X2 (confused on time - this is baseline per patient). Very frail and thin acute distress. Eyes: Pupils equal, round and reactive to light. ENT: Pharynx dry MM. Neck: Normal inspection. Neck supple. CVS: Normal heart rate and rhythm. Pulses normal. Respiratory: No respiratory distress. Breath sounds both bases Abdomen: Soft and non-tender. Skin: Skin warm and dry. pale skin color. Extremities: pitting bilateral 1+ lower extremity edema. Neuro: Oriented X 2 No motor deficit. No sensory deficit. Course Course Course Narrative: suboxone held in light of hospice and morphine use patient and family comfortable with this plan Medical Decision Making Medical Decision Making MDM Narrative: 68 yo male with PMH of hypothyroidism, dysphagia, metastatic lung adenocarcinoma with mets to brain now with fatigue, anorexia, FTT and not doing well at home - family and patient asking for hospice. I did run this by Dr. Lewis she is aware and it is reasonable at this time. I have ordered PRN medications, CM consult and code status is [place] Differential Diagnosis Differential Diagnoses: The differential diagnosis associated with the presentation includes dehydration, anemia, metastatic lung cancer Admission/Observation Consideration of admission/observation: Escalation of care including admission/observation considered physician observation started at 148pm Consult Healthcare Provider Management of the patient was discussed with: Clinical Psychologist Licensed (CM - hospice and placement) did speak to Dr. Lewis she is aware of plan for hospice and placement Lab Data MDM Lab Attestation statement: I reviewed the patient's lab results. 06/19/24 11:47 06/19/24 11:47 Labs: Lab Results 06/19/24 Range/Units 11:47 WBC 2.7 L (4.8-10.8) X10*3/uL RBC 2.49 L (4.60-5.80) X10*6/uL Hgb 7.8 L (14.0-18.0) g/dl Hct 23.7 L (42.0-52.0) % MCV 95.2 (80.0-98.0) fL MCH 31.3 (27.0-33.0) pg MCHC 32.9 (31.0-36.0) g/dl RDW 22.2 H (11.0-16.0) % Plt Count 96 L D (160-400) X10*3/uL MPV 10.2 (9.4-12.4) fL Immature Gran % (Auto) Cancelled Neut % (Auto) Cancelled Lymph % (Auto) Cancelled Mckean % (Auto) Cancelled Eos % (Auto) Cancelled Baso % (Auto) Cancelled Lymph # (Auto) Cancelled Mckean # (Auto) Cancelled Eos # (Auto) Cancelled Baso # (Auto) Cancelled Abs Immat Gran (auto) Cancelled Absolute Neuts (auto) Cancelled Absolute Nucleated RBC 0.050 H (0.0-0.012) X10*3/uL Nucleated RBC % (auto) 1.9 H (0.0-0.2) /100WBC Neutrophils % (Manual) 55 (45-73) % Band Neutrophils % 2 L (3-5) % Lymphocytes % (Manual) 27 (20-40) % Monocytes % (Manual) 11 (2-11) % Metamyelocytes % 3 % Myelocytes % 2 % Abs Neuts (Manual) 1.5 L (2.0-8.3) X10*3/uL Lymphocytes # (Manual) 0.7 L (1.2-4.9) X10*3/uL Monocytes # (Manual) 0.3 (0.1-1.2) X10*3/uL Metamyelocytes # 0.1 X10*3/uL Myelocytes # 0.1 X10*/uL Nucleated RBCs 3 H (0-0) /100WBC Platelet Estimate DECREASED (NORMAL) Plt Morphology Comment NORMAL RBC Morphology NOTED Microcytosis 1+ (5-14) /OIF Macrocytosis 1+ (5-14) /OIF PT 13.3 (11.1-13.3) SEC INR 1.1 (0.9-1.1) APTT 34.9 (26.0-36.8) SEC Sodium 140 (135-145) mmol/L Potassium 3.0 L D (3.3-5.1) mmol/L Chloride 100 (96-108) mmol/L Carbon Dioxide 29 (22-29) mmol/L Anion Gap 14 (12-20) BUN 54 H (9-16) mg/dL Creatinine 1.21 (0.5-1.4) mg/dL Estim Creat Clear Calc 51.0 Estimated GFR 60 Random Glucose 114 (60-115) mg/dL Calcium 8.5 (8.4-10.2) mg/dL Magnesium 1.7 (1.6-2.6) mg/dL Total Bilirubin 0.3 (0.0-1.0) mg/dL Direct Bilirubin 0.2 (0.0-0.5) mg/dL AST 17 (5-37) U/L ALT 13 (0-40) U/L Alkaline Phosphatase 93 (39-117) U/L Troponin I High Sens < 2.7 (<3.5-35.0) ng/L Total Protein 5.9 L (6.5-8.0) g/dL Albumin 2.7 L (3.5-5.0) g/dL Lipase 8 (8-78) U/L Influenza Type A (PCR) NEGATIVE (Negative) Influenza Type B (PCR) NEGATIVE (Negative) RSV RNA Qual (PCR) NEGATIVE (Negative) SARS-CoV-2 RNA (RT-PCR) NEGATIVE (Negative) Independent Interpretation I performed an independent interpretation of an: EKG Interpretation: Rate: 49 Rhythm: sinus bradycardia [place]: left Normal P waves. Normal KENDRA. Normal QRS complex. ST T wave : no zach, nonspecific ST T wave changes qTC: 429 prior studies: no acute ischemia The study has been interpreted contemporaneously by me. . Discharge Plan Discharge Clinical Impression: Adult failure to thrive Adenocarcinoma of lung Qualifiers: Laterality: right Qualified Code(s): C34.91 - Malignant neoplasm of unspecified part of right bronchus or lung Patient Disposition: Still a Patient Prescriptions: No Action levothyroxine 200 mcg tablet 200 mcg PO DAILY Qty: 90 4RF Magic Mouthwash Diphen/Nystat/Antacid 1:1:1 240 mL Suspension 10 ml PO QID Qty: 240 3RF Rx Instructions: nystatin 100,000 unit/mL oral suspension 80 mL; diphenhydramine 12.5 mg/5 mL oral liquid 80 mL; aluminum-mag hydroxide-simethicone 400 mg-400 mg-40 mg/5 mL oral susp 80 mL; Per 240 mL ondansetron 8 mg Tablet,Disintegrating 8 mg PO Q8H PRN (Reason: Nausea) Qty: 60 1RF furosemide 20 mg Tablet 2 tab PO DAILY 90 Days Qty: 180 1RF olanzapine 15 mg tablet 1 tab PO BEDTIME lidocaine HCl [Lidocaine Viscous] 2 % Solution 1 appl MUCOUS MEMBRANE QID Qty: 300 3RF ketotifen fumarate [Zaditor] 0.025 % (0.035 %) Drops 1 drp OPHTHALMIC (EYE) Q8H Qty: 5 3RF Rx Instructions: do not exceed 2 doses in a 24 hour period Magic Mouthwash Diphen/Lido/Antacid 1:1:1 240 mL Suspension 10 ml PO TID Qty: 240 1RF Rx Instructions: Lidocaine Viscous 2 % 80mL; diphenhydramine 12.5 mg/5 mL 80mL; aluminum-mag hydrox-simeth [id number]/5mL 80mL hydrocortisone 2.5 % Lotion 1 appl TOPICAL QID Qty: 60 3RF albuterol sulfate 90 mcg/actuation HFA aerosol inhaler 2 puff inhalation Q4-6H PRN (Reason: shortness of breath or wheezing) Qty: 8.5 0RF tramadol 50 mg tablet 50 mg PO BID hydroxyzine HCl 25 mg tablet 25 mg PO DAILY PRN (Reason: Anxiety) hydrochlorothiazide 12.5 mg capsule 12.5 mg PO DAILY divalproex 500 mg tablet extended release 24 hr 1,000 mg PO BEDTIME primidone 250 mg tablet 250 mg PO BID propranolol 160 mg capsule,extended release 24 hr 160 mg PO BID buprenorphine-naloxone 8-2 mg film 1 film sublingual TID simvastatin 20 mg tablet 20 mg PO BEDTIME Print Language: Azeri
--- NOTE | 2024-06-19 13:15 | MHC.CM.ED ---
Addendum entered by Jacquelyn Vizcarra 06/19/24 15:00: Patient is currently on Suboxone for a history of substance abuse. Family is agreeable to discontinue suboxone for hospice meds. Dr Hannah made aware. Original Note: Received case management consult from Dr Hannah. Patient came to the ER due to weakness. Family received last palliative chemo on 06/12. Patient and family are no longer interested in continuing with this treatment. Now interested in hospice. Met with patient, son Ketan and his sig other in regards to discharge planning. Patient currently drowsy. Patient lives with Ketan, typically uses a walker/cane for mobility and has PRN oxygen from [employer]. Patient has not been able to ambulate the past couple of days due to weakness. Patient and family interested in hospice at a facility. Referral made to [facility] via [facility] for hospice informational meeting via telephone with Ketan at [phone]. Patient and family live in [place]. Referral made to [facility] at family's request. Continue to monitor for d/c needs.
--- NOTE | 2024-06-19 21:00 | MHC.EDTECH ---
450 ML EMPTY FROM [employer] .
--- NOTE | 2024-06-20 04:02 | MHC.EDTECH ---
Patient got up from bed ,bed alarm went off ,Patient [place] came of and Patient was incontinent of urine ,complete bed change,Patient was assisted back into bed ,care given ,and warm blanket ,Telle sitter camrea ,was placed in patient room .All safety measure in Placed .
[2024-06-20 05:49] VITALS: BP 109/62; PULSE 48; RESP 15; O2SAT 99
--- NOTE | 2024-06-20 07:20 | MHC.CM.ED ---
Addendum entered by Jacquelyn Vizcarra 06/20/24 13:17: [facility] is able to offer a bed. Insurance auth has been obtained. Patient can leave at 2pm. Supriya WOODS booked. [facility] with chart. Patient, son KetanPretty RN and Karolina MYRICK aware. Hospice RX requested to be printed. Patient will be in a semi-private room. However, there is not a patient in that room. Original Note: Patient remains in ER overflow. Patient has not received any suboxone. No withdrawal symptoms noted by nursing staff. Clinical updates sent to [facility]. Continue to monitor for d/c needs.
[2024-06-20] MEDS: Morphine Sulfate Oral Sol 10 MG/5 ML SOLUTION 5 MG PO (10:54)
--- NOTE | 2024-06-20 16:28 | PC.NURSE ---
pt alert and oriented x3, He was medicated with morphine x1 for pain to L hip and leg. Pt resting with the appearance of comfort after w/breathing even and unlabored, face/body relaxed. MD aware of and magic mouthwash ordered for pt with sore mouth/loose dentures. Pt transferred via ambulance with all belongings to hospice facility, Family at bedside today and aware.
== END 2024-06-20 14:00 ==
PROVIDERS: Physician Assistant Medical; Emergency Provider Emergency Medicine; PCP Student in an Organized Health Care Education/Training Program
DX: R62.7 Adult failure to thrive (principal); Z68.21 Body mass index [BMI] 21.0-21.9, adult; R53.1 Weakness; C34.90 Malignant neoplasm of unspecified part of unspecified bronchus or lung; C79.31 Secondary malignant neoplasm of brain; R11.0 Nausea; Z03.818 Encounter for observation for suspected exposure to other biological agents ruled out; E03.9 Hypothyroidism, unspecified; Z79.60 Long term (current) use of unspecified immunomodulators and immunosuppressants; Z79.899 Other long term (current) drug therapy
CPT/HCPCS: 0241U; 36415; 80048; 80076; 83690; 83735; 84484; 85007; 85025; 85027; 85610; 85730; 93005; 99283; 99284